=== PATIENT | male | born 2005 | race Caucasian/White ===

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

== ENCOUNTER 2023-04-26 11:20 | Emergency (ER) | payer OTHER, SELFPAY ==
[2023-04-26 11:23] VITALS: BP 108/73; PULSE 80; RESP 15; TEMP 36.6; O2SAT 97; BMI 25.1
--- NOTE | 2023-04-26 11:33 | ED_ITS ---
HPI - Seizure 2 General: Chief Complaint: Seizure Stated Complaint: Seizures Time Seen by Provider: 04/26/23 11:29 History of Present Illness: HPI Narrative: 18-year-old male presents emergency depa rtment via EMS personnel secondary having a seizure-like activity. He states he was taken to stand up after sitting in a chair at approximately 10 AM this morning fell to the ground and then hit his mouth. EMS personnel state that the patient was postictal for approximately 15 minutes after the arrival. Patient does have some dried blood around the corners of his mouth and it does appear that he has bit his tongue. The patient was accompanied by his significant other who witnessed the episode. The patient is now alert and oriented x 4 with a GCS of 15. He states that he has had episodes where he has had seizure-like activity but only with low blood glucose levels. He states he does have a monitor for his blood glucose and has done well monitoring his blood glucose and has not had seizure type activity secondary to hypoglycemia for quite some time. EMS states that their initial blood glucose check was 95 and a repeat was 101. Patient does not take any antiepileptic medications does not see neurology. Patient did complain of some initial nausea for which she received 4 mg of Zofran. He denies dizziness or lightheaded feeling. He denies neck or head pain. Associated symptoms: Reports confusion and syncope Review of Systems 2 General: Reports: 10 or more systems reviewed and unremarkable except in HPI and below Card: Reports: syncope Neuro: Reports: confusion [facility] ED 2 PFSH: Medical History Type 1 diabetes Surgical History No significant past surgical history Social History (Updated 12/11/22 @ 20:01 by Evan Campos MD) Smoking and tobacco/nicotine status: never used tobacco/nicotine Alcohol intake: never Lives independently: Yes Household members: other Details: Fiancee Current occupational status: employed Physical Exam 2 Narrative: EXAM NARRATIVE: Constitutional: the patient appears well nourished and with normal development. Vital signs reviewed as documented. HENMT: Normocephalic, atraumatic. Extermal ears with normal appearance without drainage. Nose without drainage, normal appearance. Mucus membranes moist. Patient's tongue does have superficial bite garcia on the anterior and lateral aspect. Neck is supple, No jugular venous distension, trachea is midline, no appreciable carotid bruits. No lymphadenopathy. No meningeal signs. Flexion, extension and lateral rotation is without pain. There is no vertebral tenderness, palpable step-offs, crepitus or obvious deformity. Eyes: Pupils are equal, round, reactive to light and accommodation. No scleral icterus. Extra-ocular movement are intact. Thorax is symmetrical and with equal rise and fall with respirations. Resp: Lungs are clear to auscultation. No wheezes, rales, crackles or ronchi at present. Cardio: Regular rate and rhythm. Positive S1, S2. No appreciable murmurs, rubs or gallops. GI: Abdominal exam reveals normal bowel sounds to all quadrants. No organomegaly. No obvious palpable masses noted. No hepatomegally appreciated. Soft, nontender to palpation. Extremity: Extremities are non-edematous and both femoral and pedal pulses are 2+ and equal bilaterally. Moves all extremities well, sensation in all extremities. Neuro: Alert and oriented x4, person, place, time and situation. Cranial nerves II through XII are grossly intact, there is no focal neurological deficits that I can appreciate at present. Motor strength in the upper and lower extremities are equal and bilateral 5/5. Psych: Cooperative, calm, normal thought process, appropriate judgment. Skin: No lesions, rashes. No gross abnormalities noted. Back: Symmetrical, no obvious deformity, No CVA tenderness Course 2 Reevaluation(s): Reevaluation #1: Reevaluation of patient after completion of his radiographic examination and review of his labs demonstrates an alert and oriented patient that is aware of his surroundings and has had no additional episodes of altered mental status or seizure type activity I discussed preventative care for his hypoglycemia and syncope. Patient has remained stable GCS of 15 ANO x 4 at this time I will discharge the patient at his request and have him follow-up with his primary care provider or coal bagger for further evaluation and discussion of any endocrine related medication adjustments. Patient is in agreement with this plan Time: 12:39 Vital Signs: Vital signs: Vital Signs Temperature 97.8 F 04/26/23 11:23 Pulse Rate 100 04/26/23 12:40 Respiratory Rate 21 H 04/26/23 12:40 Blood Pressure 136/83 04/26/23 12:40 Pulse Oximetry 98 04/26/23 12:40 Oxygen Delivery Me thod Room Air 04/26/23 12:40 MDM - Seizure MDM Narrative Medical decision making narrative: Physical exam completed and documented, I will obtain POC glucose check and treat accordingly. I will obtain a chest x-ray and if indicated a CT scan of the head without contrast to evaluate for intracranial hemorrhage, tumor or other posttraumatic abnormality. I have reviewed previous and pertinent medical records for assist in obtaining beneficial medical information to improved the care and treatment of the patient. Lab Data 04/26/23 11:50 04/26/23 11:50 Labs: Radiology Impressions Chest X-Ray 04/26/23 11:35 IMPRESSION: No acute findings. Laboratory Results WBC 7.11 10^3/uL (4.5-13.0) 04/26/23 11:50 RBC 5.29 10^6/uL (3.85-5.65) 04/26/23 11:50 Hgb 15.70 g/dL (13.2-15.6) H 04/26/23 11:50 Hct 46.7 % (37-53) 04/26/23 11:50 MCV 88.3 fl (82-101) 04/26/23 11:50 MCH 29.7 pg (27-33) 04/26/23 11:50 MCHC 33.6 g/dL (30-55) 04/26/23 11:50 RDW 12.8 % (12.1-15.1) 04/26/23 11:50 Plt Count 233 10^3/cmm (157-399) 04/26/23 11:50 MPV 9.2 fL (7.4-10.4) 04/26/23 11:50 Neut % (Auto) 79.4 % 04/26/23 11:50 Lymph % (Auto) 12.1 % 04/26/23 11:50 [place] % (Auto) 6.6 % 04/26/23 11:50 Eos % (Auto) 0.7 % 04/26/23 11:50 Baso % (Auto) 0.6 % 04/26/23 11:50 Neut # (Auto) 5.65 10^3/uL (1.8-8.0) 04/26/23 11:50 Lymph # (Auto) 0.9 10^3/uL (1.5-6.5) L 04/26/23 11:50 [place] # (Auto) 0.5 10^3/uL (0.2-0.9) 04/26/23 11:50 Eos # (Auto) 0.1 10^3/uL (0.0-0.8) 04/26/23 11:50 Baso # (Auto) 0.0 10^3/uL (0.0-0.1) 04/26/23 11:50 Nucleated RBC % (auto) 0 % 04/26/23 11:50 Nucleated RBCs # 0.0 /100WBC 04/26/23 11:50 Sodium 139 mmol/L (136-145) 04/26/23 11:50 Potassium 4.2 mmol/L (3.5-5.1) 04/26/23 11:50 Chloride 102 mmol/L (98-107) 04/26/23 11:50 Carbon Dioxide 26 mmol/L (22-29) 04/26/23 11:50 Anion Gap 15.2 (5-19) 04/26/23 11:50 BUN 11 mg/dL (6-20) 04/26/23 11:50 Creatinine 0.9 mg/dL (0.7-1.2) 04/26/23 11:50 GFR Calculation 107.6 mL/min (90-130) 04/26/23 11:50 Glucose 106 mg/dL (65-115) 04/26/23 11:50 POC Glucose 81 mg/dL (70-110) 04/26/23 11:39 Calculated Osmolality 288 mOsm/kg (285-295) 04/26/23 11:50 Calcium 9.5 mg/dL (8.5-10.5) 04/26/23 11:50 Total Bilirubin 0.5 mg/dL (0.15-1.2) 04/26/23 11:50 AST 24 U/L (0-40) 04/26/23 11:50 ALT 18 U/L (0-41) 04/26/23 11:50 Alkaline Phosphatase 70 U/L (40-130) 04/26/23 11:50 Total Protein 7.1 g/dL (6.6-8.7) 04/26/23 11:50 Albumin 4.4 g/dL (3.5-5.2) 04/26/23 11:50 Globulin 2.7 g/dL (1.3-4.6) 04/26/23 11:50 Prolactin 24.25 ng/mL (4.0-15.2) H 04/26/23 11:50 Urine Color Yellow (Yellow) 04/26/23 11:58 Urine Appearance Clear (CLEAR) 04/26/23 11:58 Urine pH 6 (5-7) 04/26/23 11:58 Ur Specific [place] 1.020 (1.005-1.030) 04/26/23 11:58 Urine Protein Neg (Negative) 04/26/23 11:58 Urine Glucose (UA) Norm (Normal) 04/26/23 11:58 Urine Ketones 1+ (Negative) H 04/26/23 11:58 Urine Blood Neg (Negative) 04/26/23 11:58 Urine Nitrate Negative (Negative) 04/26/23 11:58 Urine Bilirubin Neg (Negative) 04/26/23 11:58 Urine Urobilinogen Norm mg/dL (Negative) 04/26/23 11:58 Ur Leukocyte Esterase Negative (Negative) 04/26/23 11:58 All radiology interpretation(s) finalized by discharge Critical Care Time 2 Critical Care Time: Critical Care Time: Yes Total Critical Care Time: 35 Attestation: The patients was emergenctly evaluated as this patient's presentation and case had a high probability of a clinically significant, sudden, or life threatening deterioration of this patient's initial critical presentation or condition which required my full and direct attention, intervention and personal management. Discharge Plan Discharge Patient Disposition: Home Clinical Impression: Syncope and collapse, Controlled type 1 diabetes mellitus with hypoglycemia Contusion of face Qualifiers: Encounter type: initial encounter Qualified Code(s): S00.83XA - Contusion of other part of head, initial encounter Condition: Stable Prescriptions: No Action ondansetron 4 mg tablet,disintegrating 4 mg PO Q8H PRN (Reason: nausea and vomiting) Qty: 15 0RF Humalog KwikPen Insulin 200 unit/mL (3 mL) insulin pen See Rx Instructions .ROUTE .COMPLEX Rx Instructions: as directed with dexcom pump insulin glargine-yfgn [Semglee(insulin glarg-yfgn)Pen] 100 unit/mL (3 mL) insulin pen See Rx Instructions .ROUTE .COMPLEX Rx Instructions: unit subcutaneously as directed albuterol sulfate 90 mcg/actuation HFA aerosol inhaler 2 puff INHALATION Q6H PRN (Reason: Shortness Of Breath Or Wheezing) Discharge Orders: Discharge ED (Routine); Ordered 04/26/23 Ordered By: Pio Mares Discharge Diet: Advance as tolerated Discharge Activity: Resume usual activity Coding Level of Care Code ED Generator Operator for Wilmar Leroy
--- NOTE | 2023-04-26 11:35 | XRR_ITS ---
PROCEDURE INFORMATION: Exam: XR Chest Exam date and time: 04/26/2023 11:43 AM Age: 18 years old Clinical indication: Other: Seizure TECHNIQUE: Imaging protocol: Radiologic exam of the chest. Views: 1 view. COMPARISON: CR XR chest 1V portable [id number] 12/11/2022 7:58 PM FINDINGS: Lungs: Unremarkable. No consolidation. Pleural spaces: Unremarkable. No pleural effusion. No pneumothorax. Heart/Mediastinum: Unremarkable. No cardiomegaly. Bones/joints: Unremarkable. XR/XR chest 1V portable [id number] IMPRESSION: No acute findings.
--- NOTE | 2023-04-26 11:35 | PC.NURSE ---
pt placed on tapper helper.
[2023-04-26 11:43] LABS: Glucose Point of Care 81 mg/dL (70-110)
--- NOTE | 2023-04-26 11:43 | CT_ITS ---
WS: [id number] CT CERVICAL SPINE HISTORY: fall/Seizure TECHNIQUE: Contiguous 2.0 mm axial imaging performed through the entire cervical spine. Sagittal and coronal reformats also performed. All CT scans at [facility] use at least one of these dose o ptimization techniques: automated exposure control; mA and/or kV adjustment per patient size (include s targeted exams where dose is matched to clinical indication); or iterative reconstruction. DLP: 1064.19 mGy.cm COMPARISON: None available. Mild straightening of the normal cervical lordosis. Craniocervical junction is normal. Lateral masses of C1 and C2 are aligned. The odontoid is intact. No cervical spine fracture. Facet joints are sis lly aligned. No disc protrusions. No soft tissue abnormalities. Soft tissues are normal. Lung apices are clear. IMPRESSION: Normal cervical spine.
--- NOTE | 2023-04-26 11:44 | CT_ITS ---
WS: [id number] CT FACIAL BONES HISTORY: faacial trauma/fall TECHNIQUE: Images obtained from the supraorbital location through the mandible. Soft tissue and bone windows are reviewed. Coronal and sagittal reformats have also been submitted. DLP: 1064.[address] scans at [facility] use at least one of these dose optimization techniques: automated e xposure control; mA and/or kV adjustment per patient size (includes targeted exams where dose is matc hed to clinical indication); or iterative reconstruction. COMPARISON: None available. No facial bone fractures identified. Orbits are intact. No nasal bone or zygomatic arch fracture. The re is a small mucous retention cyst in the RIGHT maxillary sinus. No air-fluid levels in the sinuses. The mandible is intact. No overlying soft tissue edema. Visualized upper cervical spine is negative. IMPRESSION: Negative facial bone CT.
--- NOTE | 2023-04-26 11:47 | PC.NURSE ---
glucose currently 81
[2023-04-26 12:07] LABS: Basophils % 0.6 %; Eosinophils # 0.1 10^3/uL (0.0-0.8); Eosinophils % 0.7 %; Hematocrit 46.7 % (37-53); Lymphocytes # 0.9 10^3/uL (1.5-6.5); Lymphocytes % 12.1 %; Mean Corpuscular HGB Conc 33.6 g/dL (30-55); Mean Corpuscular Hemoglobin 29.7 pg (27-33); Mean Corpuscular Volume 88.3 fl (82-101); Mean Platelet Volume 9.2 fL (7.4-10.4); Monocytes # 0.5 10^3/uL (0.2-0.9); Monocytes % 6.6 %; Neutrophils # 5.65 10^3/uL (1.8-8.0); Neutrophils % 79.4 %; Nucleated Red Blood Cells % 0 %; Platelet Count 233 10^3/cmm (157-399); Red Blood Count 5.29 10^6/uL (3.85-5.65); Red Cell Distribution Width 12.8 % (12.1-15.1); White Blood Count 7.11 10^3/uL (4.5-13.0)
[2023-04-26 12:18] VITALS: BP 108/73; PULSE 110; RESP 17; O2SAT 99
--- NOTE | 2023-04-26 12:19 | PC.NURSE ---
this nurse completed triage note and recalled to assessment note.
[2023-04-26 12:25] LABS: Add Urine Microscopic? NO; Charge for UA Resulting for Rev
[2023-04-26 12:31] LABS: Alanine Aminotransferase 18 U/L (0-41); Albumin Level 4.4 g/dL (3.5-5.2); Alkaline Phosphatase 70 U/L (40-130); Anion Gap 15.2 (5-19); Aspartate Amino Transferase 24 U/L (0-40); Blood Urea Nitrogen 11 mg/dL (6-20); Calcium 9.5 mg/dL (8.5-10.5); Carbon Dioxide 26 mmol/L (22-29); Chloride 102 mmol/L (98-107); Creatinine Clr Calc Pharmacy 144.1459; Globulin 2.7 g/dL (1.3-4.6); Glomerular Filtration Rate 107.6 mL/min (90-130); Glucose 106 mg/dL (65-115); Osmolality Calculated 288 mOsm/kg (285-295); Potassium 4.2 mmol/L (3.5-5.1); Sodium 139 mmol/L (136-145); Total Bilirubin 0.5 mg/dL (0.15-1.2); Total Protein 7.1 g/dL (6.6-8.7)
[2023-04-26 12:33] LABS: Bilirubin Urine Neg (Negative); Blood Urine Neg (Negative); Glucose Urine UA Norm (Normal); Ketones Urine 1+ (Negative); Nitrate Urine Negative (Negative); Protein Urine Neg (Negative); Urine Appearance Clear (CLEAR); Urine Color Yellow (Yellow); pH Urine 6 (5-7)
[2023-04-26 12:34] LABS: Leukocyte Esterase Urine Negative (Negative); Urobilinogen Urine Norm (Negative)
[2023-04-26 12:40] VITALS: BP 136/83; PULSE 100; RESP 21; O2SAT 98
[2023-04-26 12:55] LABS: Prolactin 24.25 ng/mL (4.0-15.2)
[2023-04-26 13:01] VITALS: BP 136/83; PULSE 100; RESP 21; TEMP 36.6; O2SAT 98
== END 2023-04-26 13:02 | disposition home or self-care (01) ==
PROVIDERS: Emergency Provider Internal Medicine; PCP Nurse Practitioner Family
DX: R55 Syncope and collapse (principal); E10.649 Type 1 diabetes mellitus with hypoglycemia without coma; S00.83XA Contusion of other part of head, initial encounter; Z79.4 Long term (current) use of insulin; W07.XXXA Fall from chair, initial encounter
CPT/HCPCS: 36415; 36416; 70486; 71045; 72125; 80053; 81003; 82962; 84146; 85025; 99285

== ENCOUNTER 2023-04-29 14:11 | Emergency (ER) | payer OTHER, SELFPAY ==
[2023-04-29 14:15] VITALS: BP 151/81; PULSE 70; O2SAT 100; BMI 24.3
[2023-04-29 14:48] LABS: Basophils % 0.4 %; Eosinophils % 0.2 %; Hematocrit 48.7 % (37-53); Lymphocytes # 0.9 10^3/uL (1.5-6.5); Lymphocytes % 10.1 %; Mean Corpuscular HGB Conc 33.9 g/dL (30-55); Mean Corpuscular Hemoglobin 29.4 pg (27-33); Mean Corpuscular Volume 86.8 fl (82-101); Mean Platelet Volume 9.2 fL (7.4-10.4); Monocytes # 0.5 10^3/uL (0.2-0.9); Neutrophils # 7.01 10^3/uL (1.8-8.0); Neutrophils % 82.9 %; Nucleated Red Blood Cells % 0 %; Platelet Count 238 10^3/cmm (157-399); Red Blood Count 5.61 10^6/uL (3.85-5.65); Red Cell Distribution Width 12.7 % (12.1-15.1); White Blood Count 8.45 10^3/uL (4.5-13.0)
--- NOTE | 2023-04-29 14:50 | W.ED.RECABL ---
HPI - Recheck/Abnormal Lab/Rx General: Chief Complaint: Recheck/Abnormal Lab/Rx Stated Complaint: low glucose Time Seen by Provider: 04/29/23 14:12 Source: patient Mode of arrival: EMS History of Present Illness: 18-year-old male history of diabetes mellitus presents to the emergency room via EMS. He was found at home agitated aggressive disoriented. Evidently was aggressive and other family members were restraining him when EMS arrived. They did get a blood glucose of 40 and he was given D10 which he became pulm and agreeable and cooperative. Patient reports he had malfunction with his Dexcom last night and did not get an alert when he became hypoglycemic. On arrival here he is well-behaved and feeling much better. He was given D10 on the scene. MD complaint: abnormal lab (Hypoglycemia) Treatments prior to arrival: IV/IO (D10) Review of Systems Const: Denies: fever(s) or chills Card: Denies: chest pain Resp: Denies: dyspnea GI: Denies: abdominal pain : Denies: dysuria, urinary frequency or urinary urgency Musc: Denies: neck pain or back pain Skin/Breast: Denies: rash PFS ED PFSH: Medical History Type 1 diabetes Surgical History No significant past surgical history Social History Smoking and tobacco/nicotine status: never used tobacco/nicotine Alcohol intake: never Lives independently: Yes Household members: other Details: Fiancee Current occupational status: employed Physical Exam Const: COMMON NORMALS: no acute distress GENERAL APPEARANCE: cooperative and comfortable ORIENTATION/CONSCIOUSNESS: Yes awake, Yes oriented to person, Yes oriented to place and Yes oriented to time HENMT: COMMON NORMALS: normocephalic, atraumatic and hearing grossly normal bilaterally HEAD & SCALP: normocephalic and atraumatic Resp: COMMON NORMALS: normal respiratory effort, No retractions, No use of accessory muscles and clear to auscultation bilaterally AUSCULTATION: clear to auscultation bilaterally Cardio: COMMON NORMALS: regular rate, regular rhythm and No murmurs present (Cardio) RATE: regular rate RHYTHM: regular rhythm GI: COMMON NORMALS: Soft to palpation and No hepatosplenomegaly present AUSCULTATION: Yes normoactive bowel sounds PALPATION: Yes Soft to palpation, No Tenderness to palpation present (GI), No Guarding due to palpation present (GI) and Yes No hepatosplenomegaly present Extremity: COMMON NORMALS: normal to inspection, capillary refill normal, no clubbing, cyanosis or edema, no calf tenderness and no pedal edema Neuro: SENSORIUM/ORIENTATION: Yes oriented to person, Yes oriented to place and Yes oriented to time Skin: COMMON NORMALS: no rashes or lesions noted GENERAL SKIN EXAM: no rashes or lesions noted Course Vital Signs: Vital signs: Vital Signs Pulse Rate 77 04/29/23 15:47 Blood Pressure 146/90 04/29/23 15:47 Pulse Oximetry 97 04/29/23 15:47 Oxygen Delivery Me thod Room Air 04/29/23 14:15 MDM - Recheck/Abnormal Lab/Rx Medical Decision Making Hypoglycemic and combative resolved after blood sugar was improved. After arriving here he has been alert oriented and behaving appropriately 8 blood sugar maintained appropriately. Will discharge home continue to monitor blood sugar closely. Medical Records I reviewed the patient's medical records. Lab Data I reviewed the patient's lab results. 04/29/23 14:33 04/29/23 14:33 Laboratory Results WBC 8.45 10^3/uL (4.5-13.0) 04/29/23 14:33 RBC 5.61 10^6/uL (3.85-5.65) 04/29/23 14:33 Hgb 16.50 g/dL (13.2-15.6) H 04/29/23 14:33 Hct 48.7 % (37-53) 04/29/23 14:33 MCV 86.8 fl (82-101) 04/29/23 14:33 MCH 29.4 pg (27-33) 04/29/23 14:33 MCHC 33.9 g/dL (30-55) 04/29/23 14:33 RDW 12.7 % (12.1-15.1) 04/29/23 14:33 Plt Count 238 10^3/cmm (157-399) 04/29/23 14:33 MPV 9.2 fL (7.4-10.4) 04/29/23 14:33 Neut % (Auto) 82.9 % 04/29/23 14:33 Lymph % (Auto) 10.1 % 04/29/23 14:33 [place] % (Auto) 6.0 % 04/29/23 14:33 Eos % (Auto) 0.2 % 04/29/23 14:33 Baso % (Auto) 0.4 % 04/29/23 14:33 Neut # (Auto) 7.01 10^3/uL (1.8-8.0) 04/29/23 14:33 Lymph # (Auto) 0.9 10^3/uL (1.5-6.5) L 04/29/23 14:33 [place] # (Auto) 0.5 10^3/uL (0.2-0.9) 04/29/23 14:33 Eos # (Auto) 0.0 10^3/uL (0.0-0.8) 04/29/23 14:33 Baso # (Auto) 0.0 10^3/uL (0.0-0.1) 04/29/23 14:33 Nucleated RBC % (auto) 0 % 04/29/23 14: Nucleated RBCs # 0.0 /100WBC 04/29/23 14:33 Sodium 142 mmol/L (136-145) 04/29/23 14:33 Potassium 4.3 mmol/L (3.5-5.1) 04/29/23 14:33 Chloride 103 mmol/L (98-107) 04/29/23 14:33 Carbon Dioxide 25 mmol/L (22-29) 04/29/23 14:33 Anion Gap 18.3 (5-19) 04/29/23 14:33 BUN 9 mg/dL (6-20) 04/29/23 14:33 Creatinine 0.8 mg/dL (0.7-1.2) 04/29/23 14:33 GFR Calculation 123.2 mL/min (90-130) 04/29/23 14:33 Glucose 126 mg/dL (65-115) H 04/29/23 14:33 POC Glucose 172 mg/dL (70-110) H 04/29/23 15:37 Calculated Osmolality 294 mOsm/kg (285-295) 04/29/23 14:33 Calcium 9.8 mg/dL (8.5-10.5) 04/29/23 14:33 Total Bilirubin 0.7 mg/dL (0.15-1.2) 04/29/23 14:33 AST 24 U/L (0-40) 04/29/23 14:33 ALT 17 U/L (0-41) 04/29/23 14:33 Alkaline Phosphatase 78 U/L (40-130) 04/29/23 14:33 Total Protein 8.0 g/dL (6.6-8.7) 04/29/23 14:33 Albumin 4.7 g/dL (3.5-5.2) 04/29/23 14:33 Globulin 3.3 g/dL (1.3-4.6) 04/29/23 14:33 No radiology studies performed this visit Discharge Plan Discharge Patient Disposition: Home Clinical Impression: Hypoglycemia, Controlled type 1 diabetes mellitus with hypoglycemia Condition: Stable Prescriptions: No Action ondansetron 4 mg tablet,disintegrating 4 mg PO Q8H PRN (Reason: nausea and vomiting) Qty: 15 0RF Humalog KwikPen Insulin 200 unit/mL (3 mL) insulin pen See Rx Instructions .ROUTE .COMPLEX Rx Instructions: as directed with dexcom pump insulin glargine-yfgn [Semglee(insulin glarg-yfgn)Pen] 100 unit/mL (3 mL) insulin pen See Rx Instructions .ROUTE .COMPLEX Rx Instructions: unit subcutaneously as directed albuterol sulfate 90 mcg/actuation HFA aerosol inhaler 2 puff INHALATION Q6H PRN (Reason: Shortness Of Breath Or Wheezing) Discharge Orders: Discharge ED (Routine); Ordered 04/29/23 Ordered By: Sharath Suggs Referrals: Raquel Shay APN [Primary Care Provider] - Discharge Diet: Usual diet Discharge Activity: Increase activity as tolerated Patient Instructions: Opioid Safety, Pain Management Activity Restrictions/Additional Instructions: Thank you for choosing [facility] for your healthcare needs today. Please realize this is an emergency room and that we are providing you with a medical screening exam and this may not be complete and all inclusive of all the testing and or work up that you may need to determine your ailment or severity of your illness. It is very important that you follow up as instructed or that you return to the Emergency Department should you have concerns or if your condition changes or worsens in any way. You are seen today with hypoglycemia. Monitor blood sugars closely follow-up with your primary care doctor to adjust insulin as appropriate. Coding Level of Care Code ED Sewer Maintenance Supervisor for Wilmar Leroy
[2023-04-29 15:00] LABS: Alanine Aminotransferase 17 U/L (0-41); Albumin Level 4.7 g/dL (3.5-5.2); Alkaline Phosphatase 78 U/L (40-130); Anion Gap 18.3 (5-19); Aspartate Amino Transferase 24 U/L (0-40); Blood Urea Nitrogen 9 mg/dL (6-20); Calcium 9.8 mg/dL (8.5-10.5); Carbon Dioxide 25 mmol/L (22-29); Chloride 103 mmol/L (98-107); Globulin 3.3 g/dL (1.3-4.6); Glomerular Filtration Rate 123.2 mL/min (90-130); Glucose 126 mg/dL (65-115); Osmolality Calculated 294 mOsm/kg (285-295); Potassium 4.3 mmol/L (3.5-5.1); Sodium 142 mmol/L (136-145); Total Bilirubin 0.7 mg/dL (0.15-1.2)
[2023-04-29 15:41] LABS: Glucose Point of Care 172 mg/dL (70-110)
[2023-04-29 15:47] VITALS: BP 146/90; PULSE 77; O2SAT 97
== END 2023-04-29 15:48 | disposition home or self-care (01) ==
PROVIDERS: Emergency Provider Family Medicine; PCP Nurse Practitioner Family
DX: E10.649 Type 1 diabetes mellitus with hypoglycemia without coma (principal); Z79.4 Long term (current) use of insulin
CPT/HCPCS: 36415; 36416; 80053; 82962; 85025; 99283

== ENCOUNTER 2023-05-11 18:36 | Inpatient (IN) | payer OTHER, SELFPAY ==
[2023-05-11 18:46] VITALS: BP 136/82; PULSE 93; RESP 18; TEMP 36.6; O2SAT 100
--- NOTE | 2023-05-11 19:47 | ED_ITS ---
HPI - Nausea/Vomiting/Diarrhea 2 General: Chief complaint: Nausea/Vomiting/Diarrhea Stated complaint: vomiting days, uncontrolled bg Time Seen by Provider: 05/11/23 19:35 Source: patient Mode of arrival: ambulatory Limitations: no limitations History of Present Illness: 18-year-old male history of type 1 diabe karla states that last 4 days he has been having severe nausea vomiting states has not been able to tolerate any p.o. States his sugars been running normal he denies any pain anywhere he denies any diarrhea denies any fevers denies any worsening improving factors. Associated nausea: Yes Associated symtoms: Reports nausea; Denies chest pain, dysuria or headache(s) Review of Systems 2 Const: Denies: fever(s), chills, body aches or change in appetite ENMT: Denies: throat pain or dental pain Card: Denies: chest pain Resp: Denies: dyspnea GI: Reports: nausea and vomiting; Denies: abdominal pain or diarrhea : Denies: dysuria Musc: Denies: neck pain or back pain Skin/Breast: Denies: rash Neuro: Denies: headache(s) PFSH ED 2 PFSH: Medical History Type 1 diabetes Surgical History No significant past surgical history Social History Smoking and tobacco/nicotine status: never used tobacco/nicotine Alcohol intake: never Lives independently: Yes Household members: other Details: Fiancee Current occupational status: employed Physical Exam 2 Const: COMMON NORMALS: no acute distress, patient oriented x3 and healthy appearing HENMT: COMMON NORMALS: normocephalic and atraumatic HEAD & SCALP: n ormocephalic and atraumatic Eye: COMMON NORMALS: Equal, round and reactive pupils present and EOMs intact bilaterally PUPIL: Yes Equal, round and reactive pupils present Neck/C-Spine: COMMON NORMALS: full ROM and supple Chest: COMMONS NORMALS: normal inspection of the chest and normal palpation of entire chest wall Resp: COMMON NORMALS: normal respiratory effort, No retractions, No use of accessory muscles and clear to auscultation bilaterally AUSCULTATION: clear to auscultation bilaterally Cardio: COMMON NORMALS: regular rate, regular rhythm and No murmurs present (Cardio) RATE: regular rate RHYTHM: regular rhythm GI: COMMON NORMALS: Normal to inspection, nondistended, normoactive bowel sounds present, Soft to palpation, non-tender and no masses PALPATION: Yes Soft to palpation Extremity: COMMON NORMALS: normal to inspection and full ROM Neuro: COMMON NORMALS: patient oriented x3, moves all extremities and no focal motor deficits Psych: COMMON NORMALS: mental status grossly normal, Normal thought process present and cooperative THOUGHT PROCESS: Normal thought process present Skin: COMMON NORMALS: no rashes or lesions noted and no wounds GENERAL SKIN EXAM: no rashes or lesions noted Course 2 Vital Signs: Vital signs: Vital Signs Temperature 97.9 F 05/11/23 18:46 Pulse Rate 74 05/11/23 20:33 Respiratory Rate 16 05/11/23 20:33 Blood Pressure 130/52 05/11/23 20:33 Pulse Oximetry 100 05/11/23 20:33 Oxygen Delivery Me thod Room Air 05/11/23 18:46 MDM - Nausea/Vomiting/Diarrhea Medical Decision Making Patient presents here with vomiting he is in DKA here patient given IV fluids start insulin drip I spoke to hospitalist will admit. Medical Records I reviewed the patient's medical records. Lab Data I reviewed the patient's lab results. 05/11/23 19:50 05/11/23 19:50 Laboratory Results WBC 15.87 10^3/uL (4.5-13.0) H 05/11/23 19:50 RBC 5.64 10^6/uL (3.85-5.65) 05/11/23 19:50 Hgb 16.50 g/dL (13.2-15.6) H 05/11/23 19:50 Hct 47.6 % (37-53) 05/11/23 19:50 MCV 84.4 fl (82-101) 05/11/23 19:50 MCH 29.3 pg (27-33) 05/11/23 19:50 MCHC 34.7 g/dL (30-55) 05/11/23 19:50 RDW 12.6 % (12.1-15.1) 05/11/23 19:50 Plt Count 338 10^3/cmm (157-399) 05/11/23 19:50 MPV 9.6 fL (7.4-10.4) 05/11/23 19:50 Neut % (Auto) 88.5 % 05/11/23 19:50 Lymph % (Auto) 6.1 % 05/11/23 19:50 [place] % (Auto) 4.3 % 05/11/23 19:50 Eos % (Auto) 0.1 % 05/11/23 19:50 Baso % (Auto) 0.4 % 05/11/23 19:50 Neut # (Auto) 14.06 10^3/uL (1.8-8.0) H 05/11/23 19:50 Lymph # (Auto) 1.0 10^3/uL (1.5-6.5) L 05/11/23 19:50 [place] # (Auto) 0.7 10^3/uL (0.2-0.9) 05/11/23 19:50 Eos # (Auto) 0.0 10^3/uL (0.0-0.8) 05/11/23 19:50 Baso # (Auto) 0.1 10^3/uL (0.0-0.1) 05/11/23 19:50 Nucleated RBC % (auto) 0 % 05/11/23 19:50 Nucleated RBCs # 0.0 /100WBC 05/11/23 19:50 Specimen Type Arterial 05/11/23 20:25 Sample Site Brachial, left 05/11/23 20:25 ABG pH 7.27 (7.35-7.45) L 05/11/23 20:25 ABG pCO2 29.5 mmHg (35-45) L 05/11/23 20:25 ABG pO2 53.9 mmHg (80.0-100.0) L 05/11/23 20:25 ABG PO2/FiO2 Ratio 0 05/11/23 20:25 ABG HCO3 13.4 mmol/L (22-26) L 05/11/23 20:25 ABG Base Excess -12.0 mmol/L (-2.0-2.0) L 05/11/23 20:25 Steven Test Pos 05/11/23 20:25 Hematocrit 48.7 % (42-52) 05/11/23 20:25 O2 Delivery Device None 05/11/23 20:25 FiO2 21.0 % 05/11/23 20:25 Solar Sales Advisor ID [email or web address] 05/11/23 20:25 Sodium 133 mmol/L (136-145) L 05/11/23 19:50 Potassium 5.5 mmol/L (3.5-5.1) H 05/11/23 19:50 Chloride 91 mmol/L (98-107) L 05/11/23 19:50 Carbon Dioxide 14 mmol/L (22-29) L 05/11/23 19:50 Anion Gap 33.5 (5-19) H 05/11/23 19:50 BUN 23 mg/dL (6-20) H 05/11/23 19:50 Creatinine 1.3 mg/dL (0.7-1.2) H 05/11/23 19:50 GFR Calculation 70.4 mL/min (90-130) L 05/11/23 19:50 Glucose 391 mg/dL (65-115) H 05/11/23 19:50 POC Glucose 322 mg/dL (70-110) H 05/11/23 20:05 Calculated Osmolality 296 mOsm/kg (285-295) H 05/11/23 19:50 Calcium 9.6 mg/dL (8.5-10.5) 05/11/23 19:50 Total Bilirubin 1.2 mg/dL (0.15-1.2) 05/11/23 19:50 AST 26 U/L (0-40) 05/11/23 19:50 ALT 36 U/L (0-41) 05/11/23 19:50 Alkaline Phosphatase 98 U/L (40-130) 05/11/23 19:50 Total Protein 8.5 g/dL (6.6-8.7) 05/11/23 19:50 Albumin 5.1 g/dL (3.5-5.2) 05/11/23 19:50 Globulin 3.4 g/dL (1.3-4.6) 05/11/23 19:50 Lipase 27 U/L (13-60) 05/11/23 19:50 All radiology interpretation(s) finalized by discharge Critical Care Time 2 Critical Care Time: Critical Care Time: Yes Total Critical Care Time: 40 Attestation: The high probability of a clinically significant, sudden or life threatening deterioration of the patient's endocrine system(s) required my full and direct attention, intervention and personal management. The critical care time is as shown. This time is in addition to time spent performing any reported procedures but includes the following: [x] Data and vital sign review and interpretation [x] Patient assessment, examination and intervention [x] Documentation [x] Medication orders and management Discharge Plan Discharge Admit Provider: Rashid Moe Condition: Stable Prescriptions: No Action ondansetron 4 mg tablet,disintegrating 4 mg PO Q8H PRN (Reason: nausea and vomiting) Qty: 15 0RF Humalog KwikPen Insulin 200 unit/mL (3 mL) insulin pen See Rx Instructions .ROUTE .COMPLEX Rx Instructions: as directed with dexcom pump insulin glargine-yfgn [Semglee(insulin glarg-yfgn)Pen] 100 unit/mL (3 mL) insulin pen See Rx Instructions .ROUTE .COMPLEX Rx Instructions: unit subcutaneously as directed albuterol sulfate 90 mcg/actuation HFA aerosol inhaler 2 puff INHALATION Q6H PRN (Reason: Shortness Of Breath Or Wheezing) Coding Level of Care Code ED Manager Float for Wilmar Leroy
[2023-05-11 19:56] LABS: Basophils # 0.1 10^3/uL (0.0-0.1); Basophils % 0.4 %; Eosinophils % 0.1 %; Hematocrit 47.6 % (37-53); Lymphocytes % 6.1 %; Mean Corpuscular HGB Conc 34.7 g/dL (30-55); Mean Corpuscular Hemoglobin 29.3 pg (27-33); Mean Corpuscular Volume 84.4 fl (82-101); Mean Platelet Volume 9.6 fL (7.4-10.4); Monocytes # 0.7 10^3/uL (0.2-0.9); Monocytes % 4.3 %; Neutrophils # 14.06 10^3/uL (1.8-8.0); Neutrophils % 88.5 %; Nucleated Red Blood Cells % 0 %; Platelet Count 338 10^3/cmm (157-399); Red Blood Count 5.64 10^6/uL (3.85-5.65); Red Cell Distribution Width 12.6 % (12.1-15.1); White Blood Count 15.87 10^3/uL (4.5-13.0)
[2023-05-11] MEDS: sodium chloride 0.9% 1,000 ML 999 ML IV ×2 (19:57→21:26)
[2023-05-11] MEDS: metoclopramide 5 mg/mL SDV 2 mL 10 MG IVP (19:57)
[2023-05-11] MEDS: diphenhydrAMINE 50 mg/mL SDV 1mL IVP (19:57)
[2023-05-11 20:09] LABS: Glucose Point of Care 322 mg/dL (70-110)
[2023-05-11 20:13] LABS: Alanine Aminotransferase 36 U/L (0-41); Albumin Level 5.1 g/dL (3.5-5.2); Alkaline Phosphatase 98 U/L (40-130); Anion Gap 33.5 (5-19); Aspartate Amino Transferase 26 U/L (0-40); Blood Urea Nitrogen 23 mg/dL (6-20); Calcium 9.6 mg/dL (8.5-10.5); Carbon Dioxide 14 mmol/L (22-29); Chloride 91 mmol/L (98-107); Globulin 3.4 g/dL (1.3-4.6); Glomerular Filtration Rate 70.4 mL/min (90-130); Glucose 391 mg/dL (65-115); Lipase 27 U/L (13-60); Osmolality Calculated 296 mOsm/kg (285-295); Potassium 5.5 mmol/L (3.5-5.1); Sodium 133 mmol/L (136-145); Total Bilirubin 1.2 mg/dL (0.15-1.2); Total Protein 8.5 g/dL (6.6-8.7)
[2023-05-11 20:30] LABS: ABG PCO2 29.5 mmHg (35-45); ABG PH Result 7.27 (7.35-7.45); Arterial Blood Gas Hematocrit 48.7 % (42-52); Blood Gas Allen Test Pos; Blood Gas Sample Site Brachial, left; Blood Gas Sample Type Arterial; HCO3 ABG 13.4 mmol/L (22-26); PO2 ABG 53.9 mmHg (80.0-100.0); PO2 FiO2 Ratio Arterial Blood 0
[2023-05-11 20:33] VITALS: BP 130/52; PULSE 74; RESP 16; O2SAT 100
--- NOTE | 2023-05-11 20:47 | XRR_ITS ---
PROCEDURE INFORMATION: Exam: XR Abdomen Exam date and time: 05/11/2023 8:56 PM Age: 18 years old Clinical indication: Nausea and vomiting; Patient HX: N/v. Elevated bg. History of type 1 diabetes. TECHNIQUE: Imaging protocol: Radiologic exam of the abdomen. Views: Frontal supine view of the abdomen. 1 View. COMPARISON: CR (CHEST, ) 05/11/2023 8:56 PM FINDINGS: Gastrointestinal tract: Nonobstructive gas. Average volume colonic. Mild gastric wall thickening may be present. Limited evaluation for free air on this supine study. Bones/joints: Unremarkable. XR/XR KUB portable [id number] IMPRESSION: Suggestion of mild gastric wall thickening, please correlate for any evidence of gastritis. Nonobstructive bowel gas pattern.
--- NOTE | 2023-05-11 20:47 | XRR_ITS ---
PROCEDURE INFORMATION: Exam: XR Chest Exam date and time: 05/11/2023 8:56 PM Age: 18 years old Clinical indication: Shortness of breath; Patient HX: C/O SOB TECHNIQUE: Imaging protocol: Radiologic exam of the chest. Views: 1 view. COMPARISON: CR XR chest 1V portable [id number] 04/26/2023 11:43 AM FINDINGS: Lungs: Unremarkable. No consolidation. Pleural spaces: Unremarkable. No pleural effusion. No pneumothorax. Heart/Mediastinum: Unremarkable. No cardiomegaly. Bones/joints: Unremarkable. XR/XR chest 1V portable [id number] IMPRESSION: No acute plain radiographic abnormality.
[2023-05-11 21:14] LABS: Alcohol Level < 10 mg/dL (0-10)
[2023-05-11 21:18] LABS: Procalcitonin 0.34 ng/mL (0-0.5)
[2023-05-11] MEDS: insulin regular-human 250 UNIT in sodium chloride 0.9% 250 ML 7.58 UNIT IV (21:29)
--- NOTE | 2023-05-11 22:06 | P.HP_ITS ---
Providers/Chief Complaint 2 Admitting Physician: Rashid Moe MD Primary Care Provider: Raquel Shay APN Chief Complaint: vomiting days, uncontrolled bg History of Present Illness Sourav Hsu is a 18 year old male with a past medical history of type 1 diabetes mellitus, managed by endocrinology in [place], was on a insulin pump which had to be discontinued due to hypoglycemia events currently on subcu insulin, presents [facility] due to a 4-day history of nausea vomiting, fluctuating blood sugars. Patient tells me that 4 days ago he started to develop nausea vomiting, inability to keep down solids or liquids, no diarrhea, no constipation, diffuse abdominal pain with a lot of severe gastritis, epigastric burning, for which he uses Protonix at home, he does admit to marijuana use, denies a history of marijuana hyperemesis syndrome, no fevers, no chills, no cough, no lightheadedness, no dizziness, found to have diabetic ketoacidosis in the emergency room, currently on insulin drip, blood pressure 130/52 pulse is 74 respiratory 16 temperature 97.9 O2 sat 100% on room air, bicarb 14 anion gap 33.5, blood sugar 39 1, potassium 5.5 Review of Systems 2 GI: Reports: abdominal pain, nausea and vomiting Medications/Allergies Home Medications Medication Instructions Recorded Confirmed Last Taken Type ondansetron 4 mg disintegrating 4 mg PO Q8H PRN nausea and 12/02/21 04/29/23 Unknown Rx tablet vomiting #15 tabs albuterol sulfate 90 mcg/actuation 2 puff inhalation Q6H PRN 12/12/22 04/29/23 Unknown History aerosol inhaler Shortness Of Breath Or Wheezing insulin glargine-yfgn 100 unit/mL See Rx Instructions .Route .COMPLEX 12/12/22 04/29/23 04/29/23 History (3 mL) subcutaneous pen (Semglee (insulin glargine-yfgn) Pen) insulin lispro 200 unit/mL (3 mL) See Rx Instructions .Route .COMPLEX 12/12/22 04/29/23 04/29/23 History subcutaneous pen (Humalog KwikPen U-200 Insulin) Allergies Allergy/AdvReac Type Severity Reaction Status Date / Time codeine Allergy Intermediate ADR-Nausea Verified 04/29/23 14:25 PFSH Acute 2 PFSH: Medical History Type 1 diabetes Surgical History No significant past surgical history Family History (Updated 05/11/23 @ 22:08 by Rashid Moe MD) Other Depression Social History Smoking and tobacco/nicotine status: never used tobacco/nicotine Alcohol intake: never Lives independently: Yes Household members: other Details: Fiancee Current occupational status: employed Vitals/I&O/Wt Last Vital Signs Temp 97.9 F 05/11/23 18:46 Pulse 74 05/11/23 20:33 Resp 16 05/11/23 20:33 BP 130/52 05/11/23 20:33 Pulse Ox 100 05/11/23 20:33 O2 Del Method Room Air 05/11/23 18:46 05/11/23 05/11/23 05/11/23 06:59 14:59 22:59 Intake Total 1000 / 1000 Balance 1000 / 1000 Weight last 48 hrs Weight 77.111 kg Physical Exam 2 Const: COMMON NORMALS: no acute distress and patient oriented x3 HENMT: COMMON NORMALS: normocephalic HEAD & SCALP: normocephalic Neck/C-Spine: COMMON NORMALS: no JVD Resp: COMMON NORMALS: normal respiratory effort, No retractions, No use of accessory muscles and clear to auscultation bilaterally AUSCULTATION: clear to auscultation bilaterally Cardio: COMMON NORMALS: no JVD, regular rate, regular rhythm, S1 normal heart sound present and S2 normal heart sound present RATE: regular rate RHYTHM: regular rhythm HEART SOUNDS: S1 normal heart sound present and S2 normal heart sound present GI: COMMON NORMALS: Normal to inspection, nondistended, normoactive bowel sounds present, Soft to palpation and non-tender PALPATION: Yes Soft to palpation Extremity: COMMON NORMALS: no calf tenderness and no pedal edema Neuro: COMMON NORMALS: patient oriented x3, CN's II-XII intact bilaterally and moves all extremities Psych: COMMON NORMALS: mental status grossly normal Data 05/11/23 19:50 05/11/23 19:50 A&P Assessment and plan (1) Diabetic ketoacidosis: (2) Intractable nausea and vomiting: (3) Cannabis hyperemesis syndrome 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 -Lovenox for DVT prophylaxis Intractable nausea, vomiting -Likely marijuana hyperemesis syndrome -Continues to have multiple episodes of nausea vomiting in the ER despite receiving Zofran and Reglan -Continue Zofran, Reglan added on promethazine Epigastric discomfort, severe gastritis, GI cocktail Attestations 2 Medical Necessity Statement*: Patient requires hospitalization, inpatient, greater than 2 midnights, for diabetic ketoacidosis, intractable nausea and vomiting, marijuana hyperemesis syndrome Coding Level of Care Code Critical Care >/= 30 minutes Critical care time (in minutes): 45 The high probability of a clinically significant, sudden or life threatening deterioration, as referenced in this documentation, required my full and direct attention, intervention and personal management. The critical care time shown is in addition to time spent performing any reported separately billable procedures and includes the following: [x] Data and vital sign review and interpretation [x ] Patient assessment, examination and intervention [x] Medication orders and management [x] Patient/Family updates as able [x] Care Coordination and Documentation. Diagnoses Diabetic ketoacidosis E11.10 Intractable nausea and vomiting R11.2 Cannabis hyperemesis syndrome concurrent with and due to cannabis abuse F12.188
[2023-05-11 22:15] LABS: Glucose Point of Care 384 mg/dL (70-110)
[2023-05-11 23:04] LABS: Glucose Point of Care 268 mg/dL (70-110)
--- NOTE | 2023-05-11 23:13 | PC.NURSE ---
MD notified of BG decrease of over 100. MD notified that insulin drip protocol is to increase drip from 7.5 u/hr to 7.75 u/hr. telephone order to keep insulin drip at the current rate of 7.5 u/hr.
[2023-05-11 23:17] LABS: Add Urine Microscopic? NO; Charge for UA Resulting for Rev
[2023-05-11 23:20] LABS: Bilirubin Urine Neg (Negative); Blood Urine Neg (Negative); Glucose Urine UA 4+ (Normal); Ketones Urine 3+ (Negative); Leukocyte Esterase Urine Negative (Negative); Nitrate Urine Negative (Negative); Protein Urine Neg (Negative); Urine Appearance Clear (CLEAR); Urine Color Yellow (Yellow); Urobilinogen Urine Norm (Negative); pH Urine 5 (5-7)
[2023-05-11 23:24] VITALS: BP 134/58; PULSE 92; RESP 16; O2SAT 97
[2023-05-11 23:29] LABS: Amphetamines Screen Urine Negative (Negative); Barbiturates Screen Urine Negative (Negative); Benzodiazepines Screen Urine Negative (Negative); Cocaine Screen Urine Negative (Negative); Opiate Screen Urine Negative (Negative); PCP Screen Urine Negative (Negative); THC Screen Urine Positive (Negative)
[2023-05-11 23:43] LABS: Estmated Average Glucose 157; Hemoglobin A1C 7.1 % (4.0-6.0)
[2023-05-11 23:47] LABS: Reflex Lactate Order REFLEX LACTIC ORDERD
[2023-05-11] MEDS: lidocaine 2% viscous 15 ML, aluminum-mag hydrox-simethicon 30 ML, sucralfate oral liq 1 GM PO (23:49)
[2023-05-11] MEDS: pantoprazole 40 mg SDV IVP (23:50)
[2023-05-11] MEDS: sodium chloride 0.9% 1,000 ML 125 ML IV (23:50)
[2023-05-11 23:51] VITALS: O2SAT 100
[2023-05-11 23:51] LABS: Chol HDL Ratio 2.71 mg/dL (1.0-5.00); Cholesterol 114 mg/dL (0-200); HDL Cholesterol 42 mg/dL (60-100); LDL Cholesterol Calculated 54 mg/dL (50-129); LDL HDL Ratio 1.29 RATIO (0.00-3.22); Thyroid Stimulating Hormone 0.43 uIU/mL (0.27-4.20); Triglycerides 89 mg/dL (0-150)
[2023-05-12] VITALS (37 sets, daily range): BP systolic 117–148; BP diastolic 57–95; PULSE 63–133; RESP 12–24; TEMP 36.8–37.1; O2SAT 96–100; BMI 24.7
[2023-05-12 00:04] LABS: Glucose Point of Care 249 mg/dL (70-110)
[2023-05-12 00:59] LABS: Anion Gap 24.7 (5-19); Blood Urea Nitrogen 22 mg/dL (6-20); Calcium 8.6 mg/dL (8.5-10.5); Carbon Dioxide 14 mmol/L (22-29); Chloride 99 mmol/L (98-107); Glomerular Filtration Rate 77.2 mL/min (90-130); Glucose 238 mg/dL (65-115); Magnesium 2.2 mg/dL (1.7-2.3); Osmolality Calculated 287 mOsm/kg (285-295); Phosphorus 2.3 mg/dL (2.5-4.5); Potassium 4.7 mmol/L (3.5-5.1); Sodium 133 mmol/L (136-145)
[2023-05-12 01:04] LABS: Glucose Point of Care 192 mg/dL (70-110)
[2023-05-12] MEDS: D5-NS 0.45% + KCL 20 mEq 20 MEQ/1,000 ML BAG 100 MEQ IV ×3 (02:31→23:18)
[2023-05-12 02:38] LABS: Glucose Point of Care 185 mg/dL (70-110)
[2023-05-12 03:04] LABS: Lactic Acid level (Lactate) 1.1 mmol/L (0.5-2.2)
[2023-05-12 03:09] LABS: Glucose Point of Care 206 mg/dL (70-110)
[2023-05-12 04:40] LABS: Glucose Point of Care 233 mg/dL (70-110)
[2023-05-12 04:57] LABS: Anion Gap 24.1 (5-19); Blood Urea Nitrogen 19 mg/dL (6-20); Calcium 8.3 mg/dL (8.5-10.5); Carbon Dioxide 13 mmol/L (22-29); Chloride 100 mmol/L (98-107); Glomerular Filtration Rate 77.2 mL/min (90-130); Glucose 269 mg/dL (65-115); Magnesium 2.1 mg/dL (1.7-2.3); Osmolality Calculated 286 mOsm/kg (285-295); Phosphorus 2.8 mg/dL (2.5-4.5); Potassium 5.1 mmol/L (3.5-5.1); Sodium 132 mmol/L (136-145)
[2023-05-12 05:23] LABS: Glucose Point of Care 235 mg/dL (70-110)
[2023-05-12 06:30] LABS: Glucose Point of Care 215 mg/dL (70-110)
--- NOTE | 2023-05-12 06:57 | PC.NURSE ---
Report rec'd from MAURICIO Larose
[2023-05-12 07:24] LABS: Glucose Point of Care 231 mg/dL (70-110)
[2023-05-12 08:28] LABS: Glucose Point of Care 206 mg/dL (70-110)
[2023-05-12 09:18] LABS: Anion Gap 20.3 (5-19); Blood Urea Nitrogen 17 mg/dL (6-20); Calcium 8.2 mg/dL (8.5-10.5); Carbon Dioxide 17 mmol/L (22-29); Chloride 102 mmol/L (98-107); Glomerular Filtration Rate 77.2 mL/min (90-130); Glucose 235 mg/dL (65-115); Magnesium 2.2 mg/dL (1.7-2.3); Osmolality Calculated 289 mOsm/kg (285-295); Phosphorus 2.1 mg/dL (2.5-4.5); Potassium 4.3 mmol/L (3.5-5.1); Sodium 135 mmol/L (136-145)
[2023-05-12 09:25] LABS: Glucose Point of Care 204 mg/dL (70-110)
--- OUTSIDE RECORDS SUMMARY | 2023-05-12 09:35 | XMS_ITS | Patient Health Record ---
Author Name Unknown Organization [facility] Address [address] [place] [address] Care Team Providers Care Scientific Diver Name Role Phone Roshni Francisco Primary Care Provider ROSHNI FRANCISCO Unavailable Unavailable Raquel Shay Unavailable [phone] Abby Falcon Unavailable [phone] ALLERGIES Allergen (clinical drug ingredient) Drug/Non Drug Allergy documented on EMR Reaction Allergy Type Onset Date Status codeine Codeine Sulfate Unknown Drug Allergy A ctive RESULTS Component Value Reference Range Notes Hemoglobin A1C Reviewed date:03/29/2023 11:19:40 AM Interpretation: Performing Lab: Notes/Report: Hemoglobin A1C 7.0 4.2 - 6.3 % Mean Blood Sugar (Estimated) Strep Screen A [id number] Reviewed date:06/25/2022 02:43:07 PM Interpretation: Performing Lab: Notes/Report: X Strep Screen A positive Rapid Strep (Strep A) Reviewed date:10/02/2022 04:45:27 PM Interpretation: Performing Lab: Notes/Report: Strep positive RSV PCR--[id number] Reviewed date:01/16/2023 07:42:10 AM Interpretation: Performing Lab: Notes/Report: RSV PCR negative REASON FOR REFERRAL Reason Depression, anxiety Diagnosis 1 Anxiety (F41.9) Diagnosis 2 Depression (F32.9) Referral Organization [facility] Referring Provider First Name Roshni Referring Provider Last Name Maryam Referring Provider Speciality Nurse Prac titioner Referred Provider Specialty Counselor General Notes Miranda Simmons 04/13 /2023 04:00:22 PM >faxed to Danya Andrews per patient Iris frank Amy 11/21/2022 03:56:51 PM >Patient did not keep appt Referral Priority Routine Reason DM Diagnosis 1 Type 1 diabetes natasha itus with hypoglycemia without coma (E10.649) Referral Organization [facility] Referring Provider First Name Roshni Referring Provider Last Name [facility] Referring Provider Speciality Nurse Prac aguilar Referred Provider Jose Gerard Referred Provider Specialty Endocrinolog y, Diabetes and Metabolism General Notes Miranda Simmons 05/02 03:56:45 PM >faxed Referral Priority Routine Reason Seizures Diagnosis 1 Seizures (R56.9) Referral Organization [facility] Referring Provider First Name Roshni [facility] Referring Provider Speciality Nurse Oksana sheikh [facility]erred [facility] Specialty Neurology General Notes Miranda Simmons 05/02 04:09:37 PM >faxedHans Shyla 05/08/2023 04:18:04 PM >Appt 05/20/2023 @ 1:30 Referral Priority Routine Referral Appointment Date 05/20/2023 MEDICATIONS Medication SIG (Take, Route, Frequency, Duration) Notes Start Date End Date Status Pantoprazole Sodium 40 MG 1 tablet Orally Once a day for 30 days 05/08/2023 Active Ondansetron 8 MG DISSOLVE ONE TABLET in MOUTH EVERY 6 HOURS NEEDED Active Lancets - as directed SQ Daily for 90 days 07/20/2022 Active Guardian Link 3 Transmitter Not-Taking HumaLOG KwikPen 200 UNIT/ML Inject up to 75 units Subcutaneous Daily per Omnipod for 30 days 12/17/2022 Not-Taking Fluticasone Propionate 50 MCG/ACT instill ONE SPRAY IN EACH NOSTRIL ONCE DAILY (60 DAY supply) for 21 Active Contour Next Test - as directed In Vitro As needed Not-Taking Ketone Test - as directed In Vitro ad needed for 365 days 12/17/2022 12/15/2028 Active Contour Next Test - as directed In Vitro Daily for 90 days 04/11/2022 Not-Taking Citalopram Hydrobromide 40 MG 1 tablet Orally Once a day for 30 day(s) 05/09/2022 Not-Taking Dexcom G6 Transmitter - as directed Use with Dexcom G6 sensor Change every 90 days for 90 days 07/17/2022 Active Albuterol Sulfate HFA 108 (90 Base) MCG/ACT INHALE 2 PUFFS INTO LUNGS FOUR TIMES DAILY NEEDED for 25 Active Accu-Chek Guide - as directed In Vitro Three times daily for 30 days 12/17/2022 Not-Taking Dexcom G6 Sensor - as directed SQ Jc e every 10 days for 90 days 07/17/2022 Active busPIRone HCl 10 MG 1/2 to1 tablet Orall y Twice a day as needed for 30 days Not-Taking ZyrTEC 10 MG 1 tablet Orally Once a day Not-Taking HumaLOG 100 UNIT/ML as directed Injectio n sliding scale at meal times Active Lantus SoloStar 100 UNIT/ML Inject 30 Units Subcutaneous Once daily for 30 days 05/02/2023 Active Insulin Pump Accessories Medtronic Not-Taking Montelukast Sodium 10 MG 1 tablet Orally Once a day Not-Taking SOCIAL HISTORY Tobacco Use: Social History Observation Description Date Details (start date - stop date) Unknown Sex Assigned At : Social History Observation Description Sex Assigned At Unknown Tobacco Use/Smoking Question Answer Notes Are you a Uses tobacco in other forms Additional Findings: Tobacco User e-Cigarette Alcohol Screen (Audit-C) Question Answer Notes Did you have a drink containing alcohol in the p ast year? No Points 0 Interpretation Negative Tobacco use other than smoking: Question Answer Notes Are you an other tobacco user? Yes PHQ-9 Question Answer Notes Little interest or pleasure in doing things Not at all Feeling down, depressed, or hopeless Not at all Trouble falling or staying asleep, or sleeping t oo much Several days Feeling tired or having little energy Not at all Poor appetite or overeating Not at all Feeling bad about yourself, or that you are a failure, or have let yourself or your family down Not at all Trouble concentrating on thi ngs, such as reading the newspaper or watching television Not at all Moving or speaking so slowly that other people could have noticed. Or the opposite ? being so fidgety or restless that you have been moving around a lot more than usual Not at all Thoughts that you would be b louise off , or of hurting yourself in some way Not at all Total Score 1 Interpretation Minimal Depression PROBLEMS Problem Type ICD Code Onset Dates Problem Status W/U Status Risk SNOMED Code Notes Problem Type 1 diabetes mellitus with hyperglycemia (E10.65) Active confirmed 389371881255761 Problem Type 1 diabetes mellitus with other specified complication (E10.69) Active confirmed 45512974 Problem Anxiety (F41.9) Active confirmed 241206 02 Problem GERD without esophagitis (K21.9) Active confirmed 742303852 Problem Insulin pump in place (Z96.41) Active confirmed 301714925 Problem Depression (F32.9) Active confirmed Depression (63033109) Problem Asthma exacerbation (J45.901) Active confirmed Exacerbation of asthma (917296353) Problem Hypoglycemia associated with diabetes (E11.649) Active confirmed 912045082 Problem Insulin long-term use (Z79.4) Active confirmed 565271114 Problem Insulin pump titration (Z46.81) Active confirmed 469842924 Problem Insulin pump fitting or adjustment (Z46.81) Active confirmed 131744008 Problem Insulin pump status (Z96.41) Active confirmed 175970223 Problem Diabetic hypoglycemia (E11.649) Active confirmed 412002041 VITAL SIGNS Heart Rate 122 /min 05/08/2023 Temperature 97.8 degrees Fahrenheit 05/08/2023 Respiratory Rate 20 /min 05/08/2023 Blood pressure diastolic 74 mm Hg 05/08/2023 Oximetry 99 % 05/08/2023 Height-cm 177.8 cm 05/08/2023 Weight-kg 77.11 kg 05/08/2023 Height 70 in 05/08/2023 BMI Percentile 65.82 % 05/08/2023 Blood pressure systolic 120 mm Hg 05/08/2023 Weight 170 lbs 05/08/2023 BMI 24.39 kg/m2 05/08/2023 Encounters Encounter Location Date Provider Diagnosis [facility] [address] [place] [address] 07/17/2022 Abby Falcon [facility] [address] [place] [address] 07/18/2022 Abby Falcon Type 1 diabetes mellitus with hyperglycemia E10.65 [facility] [address] [place] [address] 08/02/2022 Abby Falcon Type 1 diabetes mellitus with hyperglycemia E10.65 [facility] [address] [place] [address] 12/17/2022 [facility] [address] [place] [address] 12/19/2022 [facility] [address] [place] [address] 01/17/2023 [facility] [address] [place] [address] 03/13/2023 Abby [facility] [address] [place] [address] 04/01/2023 [facility] [address] [place] [address] 04/29/2023 Abby [facility] [address] [place] [address] 04/05/2023 Abby Falcon Type 1 diabetes mellitus with hyperglycemia E10.65 [facility] [address] [place] [address] 04/29/2023 Roshni [facility] [address] [place] [address] 05/01/2023 Roshni Francisco Type 1 diabetes mellitus with hypoglycemia without coma E10.649 ; GERD without esophagitis K21.9 ; Nausea R11.0 ; Seizures R56.9 ; Insulin long-term use Z79.[address] Z96.41 [facility] [address] [place] [address] 01/17/2023 Abby Falcon Type 1 diabetes mellitus with hyperglycemia E10.65 ; Insulin pump fitting or adjustment Z46.81 ; Insulin long-term use Z79.4 ; Insulin pump in place Z96.41 and Uses self-applied continuous glucose monitoring device Z97.8 [facility] [address] [place] [address] 10/10/2022 Abby Falcon [facility] [address] [facility] [address] [place] [address] 11/05/2022 [facility] [address] [facility] [address] [place] [address] 05/17/2022 [facility] [address] [place] [address] 07/13/2022 Abby [facility] [address] [place] [address] 07/17/2022 Abby Falcon Type 1 diabetes mellitus with hyperglycemia E10.65 ; Insulin pump in place Z96.41 ; Insulin pump titration Z46.81 and Uses self-applied continuous glucose monitoring device Z97.8 [address] [place] [address] 12/17/2022 Abby Falcon Type 1 diabetes mellitus with hyperglycemia E10.65 ; Insulin pump fitting or adjustment Z46.81 ; MCFP (current) use of insulin Z79.4 ; Insulin pump in place Z96.41 and Uses self-applied continuous glucose monitoring device Z97.8 [facility] [address] [place] [address] 08/29/2022 [facility] [address] [place] [address] 05/01/2023 Abby Falcon Type 1 diabetes mellitus with other specified complication E10.69 ; Type 1 diabetes mellitus with hypoglycemia without coma E10.649 ; Insulin long-term use Z79.4 ; Insulin pump in place Z96.41 and Uses self-applied continuous glucose monitoring device Z97.8 [address] [place] [address] 03/20/2023 Abby Falcon Type 1 diabetes mellitus with hyperglycemia E10.65 ; Type 1 diabetes mellitus with hypoglycemia without coma E10.649 ; Insulin long-term use Z79.4 ; Insulin pump in place Z96.41 and Uses self-applied continuous glucose monitoring device Z97.8 [facility] [address] [place] [address] 01/15/2023 Roshni Francisco Asthma exacerbation J45.901 [facility] [address] [place] [address] 10/02/2022 Raquel Shay Sore throat J02.9 ; Strep pharyngitis J02.0 ; Skin pustule L08.9 ; Type 1 diabetes mellitus with hyperglycemia E10.65 ; Insulin long-term use Z79.4 and Insulin pump in place Z96.41 [facility] [address] [place] [address] 08/23/2022 Roshni Francisco Asthma exacerbation J45.901 [facility] [address] [place] [address] 07/31/2022 Roshnirob Francisco Anxiety F41.9 and Depression F32.9 [facility] [address] [place] [address] 06/25/2022 Roshni Francisco Strep pharyngitis J02.0 and Nausea R11.0 [facility] [address] [place] [address] 07/02/2022 Roshni Francisco Strep pharyngitis J02.0 [facility] [address] [place] [address] 07/11/2022 Roshnirob Francisco Type 1 diabetes mellitus with hyperglycemia E10.65 ; Anxiety F41.9 and Insulin long-term use Z79.4 [facility] [address] [place] [address] 05/08/2023 Roshniamanda Francisco GERD without esophagitis K21.9 ; Hyperglycemia due to type 1 diabetes mellitus E10.65 and Insulin long-term use Z79.4 [facility] [address] [place] [address] 08/14/2022 Abby Falcon Type 1 diabetes mellitus with hyperglycemia E10.65 ; Insulin pump in place Z96.41 ; Insulin pump fitting or adjustment Z46.81 and Uses self-applied continuous glucose monitoring device Z97.8 [facility] [address] [place] [address] 03/06/2023 Abby Falcon [facility] [address] [place] [address] 04/03/2023 Abby Falcon ASSESSMENTS Encounter Date Diagnosis Assessment Notes Treatment Notes Treatment Clinical Notes 06/25/2022 Nausea (ICD-10 - R11.0) 06/25/2022 Strep pharyngitis (ICD-10 - J02.0) Increase fluids, take medication as directed. RTC if no improvement with treatment. 07/02/2022 Strep pharyngitis (ICD-10 - J02.0) Will change antibiotic to Zithromax. RTC with any concerns. 07/17/2022 Type 1 diabetes mellitus with hyperglycemia (ICD-10 - E10.65) The patient is using a Medtronic 670G insulin pump and a regular Contour glucometer, he also has a Guardian continuous glucose monitor but has not been using this because it does not stick to his skin very well and it is hard to put on. Discussed adhesive techniques including changing soap, using alcohol and SkinTac and allowing skin to dry as well as using the over patches provided. Patient verbalized understanding and will resume use of his Guardian cgm as soon as possible. He is using Humalog insulin since starting the pump, he does have some Lantus as well for back up. The data from the pump is reviewed and hyperglycemia is noted. Adjustments are now made to the Total Daily Basal: MN-0900=0.9 Units, 0615-8491=1.2 Units, 2200-MN=1.0 and Total is 25.7 Units. Bolus: Correction 1:35 mg/dL, Carbohydrates 1:7 grams, Target BG 150 mg/dL. Patient has not been using the bolus function as much as the basal, and he did not use his sick day protocol when his blood sugar was elevated. Encouraged patient to use bolus function with each meal and two hours after the meal when his post prandial blood glucose is over 120 mg/dL. Reviewed pump back up plan, sick day management, and use of ketone testing and external insulin injections if blood glucose remains over 300 mg/dL for more than 2 hours to avoid DKA. Patient and father would like to check on cost of Dexcom G6 and the Omnipod5, referrals are sent to [facility]. He agrees to follow up with his primary care clinic as instructed, and he will follow up here at [facility] in one month for any adjustments or PRN. All questions answered and concerns addressed. Total time spent with patient is 45 minutes 07/17/[address] (ICD-10 - Z96.41) 07/18/2022 Type 1 diabetes mellitus with hyperglycemia (ICD-10 - E10.65) 07/31/2022 Anxiety (ICD-10 - F41.9) 07/31/2022 Depression (ICD-10 - F32.9) 08/02/2022 Type 1 diabetes mellitus with hyperglycemia (ICD-10 - E10.65) 08/14/2022 Type 1 diabetes mellitus with hyperglycemia (ICD-10 - E10.65) The patient is started on use of the Omnipod5 insulin pump with the Dexcom G6 continuous glucose monitor. Instructions on use of the PDM and Omnipod phone radha as well as how to fill and place the Pod and take bolus doses. The PDM is set with the following settings: Total Daily Basal: MN-0900=0.9 Units, 7365-0982=1.2 Units, 2200-MN=1.0 and Total is 25.7 Units. Bolus: Correction 1:35 g/dL, Carbohydrates 1:7 grams, Target BG 110 mg/dL. Encouraged patient to use bolus function with each meal and two hours after the meal when post prandial blood glucose is over 120 mg/dL. Discussed Pod placement, Temp Basal, Extended Bolus, and control integration with Dexcom cgm. He agrees to follow up with his primary care clinic as instructed, and he will follow up here at [facility] in one month for any adjustments or PRN. All questions answered and concerns addressed. Total time spent with patient is 90 minutes 08/14/[address] (ICD-10 - Z96.41) 08/23/2022 Asthma exacerbation (ICD-10 - J45.901) RTC if no improvement with treatment. 10/02/2022 Sore throat (ICD-10 - J02.9) rapid strep positive 10/02/2022 Strep pharyngitis (ICD-10 - J02.0) rocephin 1 gram amoxicillin medrol dose pack 12/17/2022 Type 1 diabetes mellitus with hyperglycemia (ICD-10 - E10.65) The patient is using an Omnipod5 insulin pump and Dexcom G6 continuous glucose monitor. He is using Humalog U200 insulin in the pump. The data from the cgm is downloaded and interpreted, hyperglycemia is noted. He reports that he has not been able to order a new Transmitter and has not been using the Dexcom for about a month. This has caused the pump to not deliver full basal insulin on a regular basis. Advised patient to leave pump in Manual mode until the Dexcom G6 transmitter arrives and is able to be used, then he may set pump back to Automated mode. Patient called [facility], and he will have a Dexcom Transmitter shipped on 12/22/2022. Adjustments are now made to the Total Daily Basal: MN-0900=1.1 Units, 2082-0248=1.4 Units, 2200-MN=1.2 and Total is 31.15 Units. Bolus: Correction 1:30 mg/dL, Carbohydrates 1:8 grams, Target BG 120 mg/dL. Encouraged patient to use bolus function with each meal and two hours after the meal when the post prandial blood glucose is over 110 mg/dL. Patient will need new prescription for Humalog U200, this is sent to his pharmacy. He agrees to follow up with his primary care clinic as instructed, and he will follow up here at [facility] in one month for any adjustments or PRN. All questions answered and concerns addressed. Total time spent with patient is 45 minutes 12/17/2022 Insulin pump fitting or adjustment (ICD-10 - Z46.81) 01/17/2023 Type 1 diabetes mellitus with hyperglycemia (ICD-10 - E10.65) The patient is using an Omnipod5 insulin pump and Dexcom G6 continuous glucose monitor. He is using Humalog U200 insulin in the pump. The data from the pump and cgm is downloaded and interpreted, hyperglycemia is noted with average blood sugar of 175 mg/dL. There are gaps in the use of the pump and three of the past seven days the patient has not used his bolus function. Discussed with patient the importance of using the insulin pump every day consistently and the use of the bolus functions at least once per day. Goals established are no more than two hours with pump off and at least one bolus per day. Patient and significant other verbalized understanding. Adjustments are now made to the Total Daily Basal: MN-0600=1.2 Units, 0900-Noon=1.6 Units, Noon-MN=1.35 and Total is 34.3 Units. Encouraged patient to use bolus function with each meal and two hours after the meal when the post prandial blood glucose is over 180 mg/dL. Discussed insulin use in Pod, patient is filling the Pod to max 200 units and then wasting at least 50 units every 3 days. Explained that he does not need to fill the Pod to maximum and to try 150Units instead of 200 units. Patient verbalized understanding. He and his significant other would like to attend diabetes education class, this is scheduled for next month. He agrees to follow up with his primary care clinic as instructed, and he will follow up here at [facility] in one month for any adjustments or PRN. All questions answered and concerns addressed. Total time spent with patient is 45 minutes 01/17/2023 Insulin pump fitting or adjustment (ICD-10 - Z46.81) 05/01/2023 Type 1 diabetes mellitus with hypoglycemia without coma (ICD-10 - E10.649) Recheck in 3 months. 05/01/2023 GERD without esophagitis (ICD-10 - K21.9) 05/08/2023 GERD without esophagitis (ICD-10 - K21.9) 05/08/2023 Hyperglycemia due to type 1 diabetes mellitus (ICD-10 - E10.65) Continue same as he Morelia Ervin discussed. Waiting for Endocrinology referral. Recheck here in 2 weeks. 05/01/2023 Type 1 diabetes mellitus with hypoglycemia without coma (ICD-10 - E10.649) 05/01/2023 Type 1 diabetes mellitus with other specified complication (ICD-10 - E10.69) The patient is using an Omnipod5 insulin pump with Humalog U200, he has always used the U200 Humalog and was previously on the Medtronic pump. [place] report is generated and reviewed, the patient has an average blood glucose of 194 mg/dL with average 39 units of daily insulin use, the pump has been in Manual mode approximately 95% of the time, with no connection with Dexcom. He states his Dexcom will not connect with his phone or pump. He did change the Dexcom sensor but this did not resolve the situation. He also changed the Transmitter recent on 04/13/23. He is unsure of why his Dexcom will not connect. The Dexcom G6 continuous glucose monitor is reviewed, the data stops on 04/22/2023. The radha is removed from the phone and the phone are reset. The Dexcom G6 radha is reinstalled on the phone and restarted the sensor session. The transmitter ID is checked with the phone and Omnipod PDM, both have the same ID number. Checked the transmitter number that he is using today with the sensor, the ID numbers do not match. This is the reason that the system will not connect. Reminded patient that he has to use the same Transmitter that is programmed into the devices. He thinks he has the other transmitter at home he will go home and reconnect with the other transmitter. Discussed use of basal and bolus insulin instead of the Omnipod5 pump for safety of the patient. He agrees, and his pod was removed and the PDM is turned off. He does have a new PDM that will need to be programmed should he decide to go back on the pump at a later date. This PDM is not programmed today. He has taken Semglee and Lantus in the past. Lantus pens and pen needles are given and patient understands he will take 30 units of Lantus once daily and use the Humalog U200 based on sliding scale with meals only. A fingerstick blood glucose is checked, his current blood glucose is 68 mg/dL, carbohydrate drink is provided and advised patient to start Lantus tonight after dinner. He agrees to follow up with his primary care clinic as instructed, and he has referrals to Neurology and Endocrinology pending. He will follow up here at [facility] in one month. All questions answered and concerns addressed. Total time spent with patient is 35 minutes 04/05/2023 Type 1 diabetes mellitus with hyperglycemia (ICD-10 - E10.65) 03/20/2023 Type 1 diabetes mellitus with hypoglycemia without coma (ICD-10 - E10.649) 03/20/2023 Type 1 diabetes mellitus with hyperglycemia (ICD-10 - E10.65) The patient is using an Omnipod DASH insulin pump and Dexcom G6 continuous glucose monitor. He is using Humalog insulin since starting the pump. The data from the pump and cgm is downloaded and interpreted, some hyperglycemia is noted. No adjustments are made to the Total Daily Basal or Bolus settings at this time. His average insulin use has been around 40 units per day, and he is not using the Activity function. Reviewed, at length, hypoglycemia prevention and treatment with patient and girlfriend including use of glucagon rescue kit both nasal and injection. Written and verbal instructions are provided for patient and girlfriend to share with roommate and friends. Encouraged patient to have a hypoglycemia awareness card or some type of Medical Alert. Encouraged patient to use the Activity function on his pump when working to prevent hypoglycemia and to respond to Dexcom G6 alerts and alarms. Reviewed Pod placement, Automated mode and encouraged patient to use an radha or food label for accurate carbohydrate counting. An A1C is checked, result is 7.0% He agrees to follow up with his primary care clinic as instructed, and he will follow up here at [facility] in one month for any adjustments or PRN. All questions answered and concerns addressed. Total time spent with patient is 38 minutes 01/15/2023 Asthma exacerbation (ICD-10 - J45.901) Increase fluids, take medication as directed. RTC if no improvement with treatment. 07/11/2022 Type 1 diabetes mellitus with hyperglycemia (ICD-10 - E10.65) Keep apt with [facility] as scheduled. Recheck here 3 months and PRN. 07/11/2022 Anxiety (ICD-10 - F41.9) Recheck 3 weeks. 07/11/2022 Insulin long-term use (ICD-10 - Z79.4) 05/01/2023 Insulin long-term use (ICD-10 - Z79.4) 03/20/2023 Insulin long-term use (ICD-10 - Z79.4) 05/08/2023 Insulin long-term use (ICD-10 - Z79.4) 05/01/2023 Nausea (ICD-10 - R11.0) 01/17/2023 Insulin long-term use (ICD-10 - Z79.4) 12/17/2022 terminal carman (current) use of insulin (ICD-10 - Z79.4) 10/02/2022 Skin pustule (ICD-10 - L08.9) continue skin care 07/17/2022 Insulin pump titration (ICD-10 - Z46.81) 08/14/2022 Insulin pump fitting or adjustment (ICD-10 - Z46.81) 08/14/2022 Uses self-applied continuous glucose monitoring device (ICD-10 - Z97.8) 07/17/2022 Uses self-applied continuous glucose monitoring device (ICD-10 - Z97.8) 10/02/2022 Type 1 diabetes mellitus with hyperglycemia (ICD-10 - E10.65) monitor blood sugar 12/17/[address] (ICD-10 - Z96.41) 01/17/[address] (ICD-10 - Z96.41) 05/01/2023 Seizures (ICD-10 - R56.9) 03/20/[address] (ICD-10 - Z96.41) 05/01/[address] (ICD-10 - Z96.41) 03/20/2023 Uses self-applied continuous glucose monitoring device (ICD-10 - Z97.8) 05/01/2023 Uses self-applied continuous glucose monitoring device (ICD-10 - Z97.8) 05/01/2023 Insulin long-term use (ICD-10 - Z79.4) 01/17/2023 Uses self-applied continuous glucose monitoring device (ICD-10 - Z97.8) 12/17/2022 Uses self-applied continuous glucose monitoring device (ICD-10 - Z97.8) 10/02/2022 Insulin long-term use (ICD-10 - Z79.4) 10/02/[address] (ICD-10 - Z96.41) 05/01/[address] (ICD-10 - Z96.41) 03/20/2023 Other Diabetes Blood Sugar Emergencies: Your Action Plan material was printed, Learning About Low Blood Sugar (Hypoglycemia) in Diabetes material was printed, Hypoglycemia: Care Instructions material was printed, How to Give a Glucagon Shot: Care Instructions material was printed, Diabetes Sick-Day Plan: Care Instructions material was printed, Learning About Diabetes and Exercise material was printed 10/02/2022 Other Questions asked and answered; discharged to home. PLAN OF TREATMENT Pending Test Test Name Order Date Hemoglobin A1c [id number] 04/11/2022 Next Appt Details Provider Name:Abby Fermin kwon, 06/05/2023 04:30:00 PM, [address], [place], [phone], Provider Name:Abby kwon, 06/20/2023 04:00:00 PM, [address], [place], [phone], Insurance Providers Payer Name Payer Address Payer Phone Subscriber Number Group Number Insured Name Patient Relationship to Insured Coverage Start Date Coverage End Date Get Me Listed [address] [address] [place] [address] [id number] Cooper Hsu Child - Insured has Financial Responsibility MEDICATIONS ADMINISTERED Medication Instructions Date of Administration Dosage Notes Rocephin 10/02/2022 [address] [facility] [phone] -11 pt tolerated well/instructed to wait 20 min MEDICAL (GENERAL) HISTORY Medical History History ICD Code type I diabetes Hospitalization History Reason Date(Month/Year) [facility] ER-hypoglycemia 04/2023 [facility] ER- diabetes 07-10-22 hypoglycemic seizure 03/13/23 DKA [facility] 12/11/2022
[2023-05-12] MEDS: lidocaine 1% 5 ML in potassium chloride premix 100 ML 25 ML IV (10:04)
[2023-05-12 11:05] LABS: Glucose Point of Care 243 mg/dL (70-110)
[2023-05-12 11:34] LABS: Glucose Point of Care 237 mg/dL (70-110)
[2023-05-12 12:49] LABS: Blood Urea Nitrogen 15 mg/dL (6-20); Calcium 8.8 mg/dL (8.5-10.5); Carbon Dioxide 15 mmol/L (22-29); Chloride 102 mmol/L (98-107); Glomerular Filtration Rate 85.3 mL/min (90-130); Glucose 231 mg/dL (65-115); Magnesium 2.4 mg/dL (1.7-2.3); Osmolality Calculated 288 mOsm/kg (285-295); Phosphorus 1.7 mg/dL (2.5-4.5); Sodium 135 mmol/L (136-145)
[2023-05-12 12:51] LABS: Anion Gap 22.1 (5-19); Potassium 4.1 mmol/L (3.5-5.1)
[2023-05-12 13:00] LABS: Glucose Point of Care 221 mg/dL (70-110)
[2023-05-12 13:43] LABS: Glucose Point of Care 219 mg/dL (70-110)
--- NOTE | 2023-05-12 14:35 | PM.PN ---
Subjective Subjective: Asking when he can go home. He states he was on an insulin pump recently that was stopped by his family services specialist. He states he will be setting up with a new family services specialist soon. He generally asked me questions about gastroparesis, DKA, diabetes in general. Vitals/I&O/Wt Last Vital Signs Temp 98.2 F 05/12/23 11:55 Pulse 93 05/12/23 12:00 Resp 12 05/12/23 12:00 BP 143/91 05/12/23 12:00 Pulse Ox 100 05/12/23 12:00 O2 Del Method Room Air 05/12/23 11:00 FiO2 21 05/11/23 23:51 05/11/23 05/12/23 05/12/23 22:59 06:59 14:59 Intake Total 1000 / 1000 3368.622 / 4368.622 1000 / 1000 Balance 1000 / 1000 3368.622 / 4368.622 1000 / 1000 Weight last 48 hrs Weight 78.103 kg Weight 77.111 kg Physical Exam Const: COMMON NORMALS: no acute distress and patient oriented x3 HENMT: COMMON NORMALS: normocephalic HEAD & SCALP: normocephalic Neck/C-Spine: COMMON NORMALS: no JVD Resp: COMMON NORMALS: normal respiratory effort, No retractions, No use of accessory muscles and clear to auscultation bilaterally AUSCULTATION: clear to auscultation bilaterally Cardio: COMMON NORMALS: no JVD, regular rate, regular rhythm, S1 normal heart sound present and S2 normal heart sound present RATE: regular rate RHYTHM: regular rhythm HEART SOUNDS: S1 normal heart sound present and S2 normal heart sound present GI: COMMON NORMALS: Normal to inspection, nondistended, normoactive bowel sounds present, Soft to palpation and non-tender PALPATION: Yes Soft to palpation Extremity: COMMON NORMALS: no calf tenderness and no pedal edema Neuro: COMMON NORMALS: patient oriented x3, CN's II-XII intact bilaterally and moves all extremities Psych: COMMON NORMALS: mental status grossly normal Data 05/11/23 19:50 05/12/23 11:45 A&P Assessment and plan (1) Diabetic ketoacidosis: (2) Intractable nausea and vomiting: (3) Cannabis hyperemesis syndrome 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 -Lovenox for DVT prophylaxis Intractable nausea, vomiting -Likely marijuana hyperemesis syndrome -Continues to have multiple episodes of nausea vomiting in the ER despite receiving Zofran and Reglan -Continue Zofran, Reglan added on promethazine Epigastric discomfort, severe gastritis, GI cocktail Attestations Medical Necessity Statement*: Patient requires hospitalization, inpatient, greater than 2 midnights, for diabetic ketoacidosis, intractable nausea and vomiting, marijuana hyperemesis syndrome Diagnoses Diabetic ketoacidosis E11.10 Intractable nausea and vomiting R11.2 Cannabis hyperemesis syndrome concurrent with and due to cannabis abuse F12.188
[2023-05-12 14:44] LABS: Glucose Point of Care 254 mg/dL (70-110)
--- NOTE | 2023-05-12 15:18 | PC.NURSE ---
Visitor. Patient allowed to have 1 overnight visitor per Chelsy salon manager.
[2023-05-12 15:50] LABS: Glucose Point of Care 229 mg/dL (70-110)
[2023-05-12 16:35] LABS: Blood Urea Nitrogen 13 mg/dL (6-20); Calcium 8.8 mg/dL (8.5-10.5); Carbon Dioxide 19 mmol/L (22-29); Chloride 101 mmol/L (98-107); Glomerular Filtration Rate 95.3 mL/min (90-130); Glucose 224 mg/dL (65-115); Magnesium 2.2 mg/dL (1.7-2.3); Osmolality Calculated 285 mOsm/kg (285-295); Sodium 134 mmol/L (136-145)
[2023-05-12 16:40] LABS: Anion Gap 18.2 (5-19); Potassium 4.2 mmol/L (3.5-5.1)
[2023-05-12 17:58] LABS: Glucose Point of Care 197 mg/dL (70-110)
[2023-05-12 17:58] LABS: Glucose Point of Care 197 mg/dL (70-110)
[2023-05-12 19:13] LABS: Glucose Point of Care 150 mg/dL (70-110)
[2023-05-12 20:05] LABS: Glucose Point of Care 137 mg/dL (70-110)
[2023-05-12] MEDS: pantoprazole 40 mg SDV IVP (20:11)
[2023-05-12 21:07] LABS: Glucose Point of Care 213 mg/dL (70-110)
[2023-05-12 21:31] LABS: Anion Gap 19.8 (5-19); Blood Urea Nitrogen 11 mg/dL (6-20); Calcium 8.6 mg/dL (8.5-10.5); Carbon Dioxide 18 mmol/L (22-29); Chloride 102 mmol/L (98-107); Glomerular Filtration Rate 123.2 mL/min (90-130); Glucose 230 mg/dL (65-115); Magnesium 1.9 mg/dL (1.7-2.3); Osmolality Calculated 289 mOsm/kg (285-295); Phosphorus 1.3 mg/dL (2.5-4.5); Potassium 3.8 mmol/L (3.5-5.1); Sodium 136 mmol/L (136-145)
[2023-05-12 22:23] LABS: Glucose Point of Care 256 mg/dL (70-110)
[2023-05-12] MEDS: ondansetron 2 mg/ML SDV 2 mL 4 MG IVP (22:29)
[2023-05-12 23:16] LABS: Glucose Point of Care 244 mg/dL (70-110)
[2023-05-13] VITALS (18 sets, daily range): BP systolic 106–159; BP diastolic 53–100; PULSE 54–117; RESP 15–22; TEMP 36.6–36.8; O2SAT 95–100
[2023-05-13 00:23] LABS: Glucose Point of Care 225 mg/dL (70-110)
[2023-05-13 01:06] LABS: Glucose Point of Care 224 mg/dL (70-110)
[2023-05-13 02:06] LABS: Glucose Point of Care 239 mg/dL (70-110)
[2023-05-13 02:06] LABS: Anion Gap 16.3 (5-19); Blood Urea Nitrogen 11 mg/dL (6-20); Calcium 8.8 mg/dL (8.5-10.5); Carbon Dioxide 21 mmol/L (22-29); Chloride 103 mmol/L (98-107); Glomerular Filtration Rate 95.3 mL/min (90-130); Glucose 261 mg/dL (65-115); Osmolality Calculated 290 mOsm/kg (285-295); Potassium 4.3 mmol/L (3.5-5.1); Sodium 136 mmol/L (136-145)
[2023-05-13 03:19] LABS: Glucose Point of Care 227 mg/dL (70-110)
[2023-05-13 04:11] LABS: Glucose Point of Care 224 mg/dL (70-110)
[2023-05-13 05:06] LABS: Glucose Point of Care 215 mg/dL (70-110)
[2023-05-13 05:18] LABS: Anion Gap 17.4 (5-19); Blood Urea Nitrogen 11 mg/dL (6-20); Calcium 8.4 mg/dL (8.5-10.5); Carbon Dioxide 22 mmol/L (22-29); Chloride 105 mmol/L (98-107); Glomerular Filtration Rate 107.6 mL/min (90-130); Glucose 260 mg/dL (65-115); Osmolality Calculated 298 mOsm/kg (285-295); Potassium 4.4 mmol/L (3.5-5.1); Sodium 140 mmol/L (136-145)
[2023-05-13 06:15] LABS: Glucose Point of Care 218 mg/dL (70-110)
[2023-05-13 07:17] LABS: Glucose Point of Care 214 mg/dL (70-110)
[2023-05-13 08:25] LABS: Glucose Point of Care 219 mg/dL (70-110)
[2023-05-13 08:33] LABS: Anion Gap 15.3 (5-19); Blood Urea Nitrogen 9 mg/dL (6-20); Calcium 8.6 mg/dL (8.5-10.5); Carbon Dioxide 23 mmol/L (22-29); Chloride 103 mmol/L (98-107); Glomerular Filtration Rate 107.6 mL/min (90-130); Glucose 265 mg/dL (65-115); Osmolality Calculated 292 mOsm/kg (285-295); Potassium 4.3 mmol/L (3.5-5.1); Sodium 137 mmol/L (136-145)
[2023-05-13] MEDS: D5-NS 0.45% + KCL 20 mEq 20 MEQ/1,000 ML BAG 100 MEQ IV (09:20)
[2023-05-13 09:23] LABS: Glucose Point of Care 235 mg/dL (70-110)
[2023-05-13 10:47] LABS: Glucose Point of Care 240 mg/dL (70-110)
[2023-05-13 12:45] LABS: Glucose Point of Care 208 mg/dL (70-110)
[2023-05-13 13:01] LABS: Anion Gap 20.7 (5-19); Blood Urea Nitrogen 8 mg/dL (6-20); Calcium 9.1 mg/dL (8.5-10.5); Carbon Dioxide 21 mmol/L (22-29); Chloride 101 mmol/L (98-107); Glomerular Filtration Rate 107.6 mL/min (90-130); Glucose 249 mg/dL (65-115); Osmolality Calculated 295 mOsm/kg (285-295); Potassium 3.7 mmol/L (3.5-5.1); Sodium 139 mmol/L (136-145)
--- NOTE | 2023-05-13 13:04 | P.DS_ITS ---
Discharge Providers Date of Admission: 05/11/23 23:15 Date of Discharge: May 13, 2023 Attending Provider at Admission: Rashid Moe MD Attending Provider at Discharge: Ladi Cano MD Primary Care Provider: Raquel Shay APN Diagnoses at Discharge Discharge Diagnosis (1) Diabetic ketoacidosis: Status: Acute (2) Intractable nausea and vomiting: Status: Acute (3) Cannabis hyperemesis syndrome concurrent with and due to cannabis abuse: Status: Acute Reason for Visit Reason for Visit: vomiting days, uncontrolled bg Hospital Course Hospital Course Sourav Hsu is a 18 year old male with DM1, follows with quantitative consultant in [place], recently canged from insulin pump back to basal/bolus insulin 2 weeks ago came in on 05/11 reporting abnormal fingerstick numbers including hypoglycemia and hyperglycemia at home. He was diagnosed with DKA on admission. HE was managed per DKA/ [facility] protocol. Anion gap has been closed this morning, on 3 serial checks. Insulin drip discontinued, overlap with 15 units of lantus currently, therafter start sliding scale insulin. He was started on a diet which he tolerated. HE will return home and use 30 U lantus at night and sliding scale humalog as recommended by his endocrinologits. He requests referral to [facility] endocrinology to establish services closer to home. This has been provided. Physical Exam Narrative: General: No acute distress, AO x3 HEENT: PERRLA, pupils bilaterally equal and reactive, pallors not present Chest: Normal vesicular breath sounds, no added sounds, equal good air entry bilaterally CVS: S1-S2 regular, no murmurs, no tachycardia, no gallops, no rubs Abdomen: Soft, nontender, no organomegaly, bowel sounds present Neuro: No focal deficits, no facial deformity, AO x3, power 5/5 in all limbs Discharge Data Studies Completed and Pending Completed Studies During Hospitalization Category Date Time Status XR KUB portable [id number] Stat Exams 05/11/23 20:47 Completed XR chest 1V portable [id number] Stat Exams 05/11/23 20:47 Completed Radiology Impressions Chest X-Ray 05/11/23 20:47 IMPRESSION: No acute plain radiographic abnormality. KUB X-Ray 05/11/23 20:47 IMPRESSION: Suggestion of mild gastric wall thickening, please correlate for any evidence of gastritis. Nonobstructive bowel gas pattern. Laboratory Results WBC 15.87 10^3/uL (4.5-13.0) H 05/11/23 19:50 RBC 5.64 10^6/uL (3.85-5.65) 05/11/23 19:50 Hgb 16.50 g/dL (13.2-15.6) H 05/11/23 19:50 Hct 47.6 % (37-53) 05/11/23 19:50 MCV 84.4 fl (82-101) 05/11/23 19:50 MCH 29.3 pg (27-33) 05/11/23 19:50 MCHC 34.7 g/dL (30-55) 05/11/23 19:50 RDW 12.6 % (12.1-15.1) 05/11/23 19:50 Plt Count 338 10^3/cmm (157-399) 05/11/23 19:50 MPV 9.6 fL (7.4-10.4) 05/11/23 19:50 Neut % (Auto) 88.5 % 05/11/23 19:50 Lymph % (Auto) 6.1 % 05/11/23 19:50 [place] % (Auto) 4.3 % 05/11/23 19:50 Eos % (Auto) 0.1 % 05/11/23 19:50 Baso % (Auto) 0.4 % 05/11/23 19:50 Neut # (Auto) 14.06 10^3/uL (1.8-8.0) H 05/11/23 19:50 Lymph # (Auto) 1.0 10^3/uL (1.5-6.5) L 05/11/23 19:50 [place] # (Auto) 0.7 10^3/uL (0.2-0.9) 05/11/23 19:50 Eos # (Auto) 0.0 10^3/uL (0.0-0.8) 05/11/23 19:50 Baso # (Auto) 0.1 10^3/uL (0.0-0.1) 05/11/23 19:50 Nucleated RBC % (auto) 0 % 05/11/23 19:50 Nucleated RBCs # 0.0 /100WBC 05/11/23 19:50 Specimen Type Arterial 05/11/23 20:25 Sample Site Brachial, left 05/11/23 20:25 ABG pH 7.27 (7.35-7.45) L 05/11/23 20:25 ABG pCO2 29.5 mmHg (35-45) L 05/11/23 20:25 ABG pO2 53.9 mmHg (80.0-100.0) L 05/11/23 20: ABG PO2/FiO2 Ratio 0 05/11/23 20: ABG HCO3 13.4 mmol/L (22-26) L 05/11/23 20: ABG Base Excess -12.0 mmol/L (-2.0-2.0) L 05/11/23 20:25 Steven Test Pos 05/11/23 20:25 Hematocrit 48.7 % (42-52) 05/11/23 20: O2 Delivery Device None 05/11/23 20: FiO2 21.0 % 05/11/23 20:25 Ecommerce Manager ID [email or web address] 05/11/23 20:25 Sodium 139 mmol/L (136-145) 05/13/23 12:32 Potassium 3.7 mmol/L (3.5-5.1) 05/13/23 12:32 Chloride 101 mmol/L (98-107) 05/13/23 12:32 Carbon Dioxide 21 mmol/L (22-29) L 05/13/23 12:32 Anion Gap 20.7 (5-19) H 05/13/23 12:32 BUN 8 mg/dL (6-20) 05/13/23 12:32 Creatinine 0.9 mg/dL (0.7-1.2) 05/13/23 12:32 GFR Calculation 107.6 mL/min (90-130) 05/13/23 12:32 Glucose 249 mg/dL (65-115) H 05/13/23 12:32 POC Glucose 208 mg/dL (70-110) H 05/13/23 12:37 Estimat Average Glucose 157 05/11/23 20:22 Hemoglobin A1c 7.1 % (4.0-6.0) H 05/11/23 20:22 Calculated Osmolality 295 mOsm/kg (285-295) 05/13/23 12:32 Lactic Acid 3.0 mmol/L (0.5-2.2) H 05/11/23 19:50 Lactic Acid (Sepsis) 1.1 mmol/L (0.5-2.2) 05/12/23 02:00 Calcium 9.1 mg/dL (8.5-10.5) 05/13/23 12:32 Phosphorus 1.3 mg/dL (2.5-4.5) L 05/12/23 20:35 Magnesium 1.9 mg/dL (1.7-2.3) 05/12/23 20:35 Total Bilirubin 1.2 mg/dL (0.15-1.2) 05/11/23 19:50 AST 26 U/L (0-40) 05/11/23 19:50 ALT 36 U/L (0-41) 05/11/23 19:50 Alkaline Phosphatase 98 U/L (40-130) 05/11/23 19:50 C-Reactive Protein 3.0 mg/L (0.0-4.9) 05/11/23 20:47 Total Protein 8.5 g/dL (6.6-8.7) 05/11/23 19:50 Albumin 5.1 g/dL (3.5-5.2) 05/11/23 19:50 Globulin 3.4 g/dL (1.3-4.6) 05/11/23 19:50 Triglycerides 89 mg/dL (0-150) 05/11/23 20:22 Cholesterol 114 mg/dL (0-200) 05/11/23 20:22 LDL Cholesterol, Calc 54 mg/dL (50-129) 05/11/23 20:22 HDL Cholesterol 42 mg/dL (60-100) L 05/11/23 20:22 LDL/HDL Ratio 1.29 RATIO (0.00-3.22) 05/11/23 20:22 Cholesterol/HDL Ratio 2.71 mg/dL (1.0-5.00) 05/11/23 20:22 Lipase 27 U/L (13-60) 05/11/23 19:50 Procalcitonin 0.34 ng/mL (0-0.5) 05/11/23 20:47 TSH 0.43 uIU/mL (0.27-4.20) 05/11/23 20:22 Urine Color Yellow (Yellow) 05/11/23 21:59 Urine Appearance Clear (CLEAR) 05/11/23 21:59 Urine pH 5 (5-7) 05/11/23 21:59 Ur Specific [place] 1.020 (1.005-1.030) 05/11/23 21:59 Urine Protein Neg (Negative) 05/11/23 21:59 Urine Glucose (UA) 4+ (Normal) H 05/11/23 21:59 Urine Ketones 3+ (Negative) H 05/11/23 21:59 Urine Blood Neg (Negative) 05/11/23 21:59 Urine Nitrate Negative (Negative) 05/11/23 21:59 Urine Bilirubin Neg (Negative) 05/11/23 21:59 Urine Urobilinogen Norm mg/dL (Negative) 05/11/23 21:59 Ur Leukocyte Esterase Negative (Negative) 05/11/23 21:59 Urine Opiates Screen Negative ng/mL (Negative) 05/11/23 21:59 Ur Barbiturates Screen Negative ng/mL (Negative) 05/11/23 21:59 Ur Phencyclidine Scrn Negative ng/mL (Negative) 05/11/23 21:59 Ur Amphetamines Screen Negative ng/mL (Negative) 05/11/23 21:59 U Benzodiazepines Scrn Negative ng/mL (Negative) 05/11/23 21:59 Urine Cocaine Screen Negative ng/mL (Negative) 05/11/23 21:59 U Marijuana (THC) Screen Positive ng/mL (Negative) H 05/11/23 21:59 Ethyl Alcohol < 10 mg/dL (0-10) 05/11/23 20:47 Vitals Last Vital Signs Temp 97.9 F 05/13/23 08:00 Pulse 91 05/13/23 10:00 Resp 19 H 05/13/23 10:00 BP 130/79 05/13/23 10:00 Pulse Ox 98 05/13/23 09:54 O2 Del Method Room Air 05/13/23 09:54 FiO2 21 05/11/23 23:51 Discharge Plan Discharge Patient Disposition: Home Condition: Stable Prescriptions: Continued Humalog KwikPen Insulin 200 unit/mL (3 mL) insulin pen See Rx Instructions .ROUTE .COMPLEX Rx Instructions: sliding scale tid albuterol sulfate 90 mcg/actuation HFA aerosol inhaler 2 puff INHALATION Q6H PRN (Reason: Shortness Of Breath Or Wheezing) Tylenol Ex Str Rapid Release 500 mg Tablet 1,000 mg PO Q6H PRN (Reason: Pain) ondansetron 8 mg tablet,disintegrating 8 mg PO Q6H PRN (Reason: Nausea And Vomiting) pantoprazole 40 mg tablet,delayed release (DR/EC) 40 mg PO QAM ondansetron 4 mg tablet,disintegrating 4 mg PO Q6H PRN (Reason: Nausea And Vomiting) melatonin 5 mg Tablet 5 mg PO BEDTIME Semglee(insulin glarg-yfgn)Pen 100 unit/mL (3 mL) insulin pen 30 unit SUBCUT BEDTIME Discharge Orders: Discharge Order (Routine); Ordered 05/13/23 Ordered By: Ladi Cano Referrals: Jaspal,RUBEN García [Primary Care Provider] - Laura Kelly MD [Physician] - 2 weeks (uncontrolled type 1 DM ) Discharge Diet: Diabetic Discharge Activity: Resume usual activity Patient Instructions: Opioid Safety Discharge Attestations Time Spent in Discharge Care*: greater than 30 min Quality Metrics Clinical Quality Measures [ No reported AMI, CVA or VTE this stay] Coding Level of Care Code Acute Code for Chg Fwd Diagnoses Diabetic ketoacidosis E11.10 Intractable nausea and vomiting R11.2 Cannabis hyperemesis syndrome concurrent with and due to cannabis abuse F12.188
[2023-05-13] MEDS: insulin glargine 100 units/1 mL 15 UNIT SUBCUT (13:18)
[2023-05-13 15:00] LABS: Glucose Point of Care 275 mg/dL (70-110)
--- NOTE | 2023-05-13 15:23 | PC.NURSE ---
Discharge Note Patient discharged to home accompanied by significant other. Patient is alert/oriented x4 on room air upon discharge. All IV's removed upon discharge. Discharge instructions reviewed with patient and/or solar sales representative. Patient belongings returned upon discharge.
[2023-05-13 17:23] LABS: Glucose Point of Care 323 mg/dL (70-110)
== END 2023-05-13 15:16 | disposition home or self-care (01) | DRG 639 ==
LOC: ER 19:48 → ER IP 05-12 01:59 → ICU 05-12 07:24 → ER IP 05-12 09:33
PROVIDERS: Internal Medicine; Admitting Provider Family Medicine; Emergency Provider Emergency Medicine; PCP Nurse Practitioner Family; Visit Provider Student in an Organized Health Care Education/Training Program
DX: E10.10 Type 1 diabetes mellitus with ketoacidosis without coma (principal); Z79.4 Long term (current) use of insulin; R11.2 Nausea with vomiting, unspecified; F12.188 Cannabis abuse with other cannabis-induced disorder
CPT/HCPCS: 36415; 36416; 36600; 71045; 74018; 80048; 80053; 80061; 80306; 80307; 81003; 82803; 82962; 83036; 83605; 83690; 83735; 84100; 84145; 84443; 85025; 86140; 94664; 96365; 96366; 96367; 96372; 96375; 96376; 99291; C9113; J1200; J1815; J2405; J2765; J3480; J7030; J7050

== ENCOUNTER 2023-06-08 23:04 | Inpatient (IN) | payer OTHER, SELFPAY ==
[2023-06-08 23:29] VITALS: BP 159/77; PULSE 116; RESP 22; TEMP 36.8; O2SAT 97; BMI 22.9
--- NOTE | 2023-06-08 23:46 | ED_ITS ---
HPI - Recheck/Abnormal Lab/Rx 2 General: Chief Complaint: Recheck/Abnormal Lab/Rx Stated Complaint: n/v, high bs Time Seen by Provider: 06/08/23 23:26 Source: patient Mode of arrival: ambulatory Limitations: no limitations History of Present Illness: 18-year-old male who has a history of ty pe 1 diabetes he has been seen here multiple times in DKA. He states that today has been vomiting throughout the day states that his blood sugars have been running high and he is tested positive for ketones and feels like he is in DKA. He had some abdominal cramping states he is continue to vomit this evening. Denies any fevers denies any worsening proving factors. Review of Systems 2 Const: Denies: fever(s), chills, body aches or change in appetite Eyes: Denies: eye discomfort ENMT: Denies: throat pain or dental pain Card: Denies: chest pain Resp: Denies: dyspnea GI: Reports: abdominal pain, nausea and vomiting; Denies: diarrhea : Denies: dysuria Musc: Denies: neck pain or back pain Skin/Breast: Denies: rash Neuro: Denies: headache(s) PFSH ED 2 PFSH: Medical History Type 1 diabetes Surgical History No significant past surgical history Family History (Updated 05/11/23 @ 22:08 by Rashid Moe MD) Other Depression Social History Smoking and tobacco/nicotine status: never used tobacco/nicotine Alcohol intake: never Lives independently: Yes Household members: other Details: ancee Current occupational status: employed Physical Exam 2 Const: COMMON NORMALS: patient oriented x3 GENERAL APPEARANCE: ill appearing HENMT: COMMON NORMALS: normocephalic and atraumatic HEAD & SCALP: n ormocephalic and atraumatic Eye: COMMON NORMALS: conjunctivae normal CONJUNCTIVA: Yes conjunctivae normal Neck/C-Spine: COMMON NORMALS: full ROM and supple Chest: COMMONS NORMALS: normal inspection of the chest Resp: COMMON NORMALS: normal respiratory effort, No retractions, No use of accessory muscles and clear to auscultation bilaterally AUSCULTATION: clear to auscultation bilaterally Cardio: COMMON NORMALS: regular rhythm and No murmurs present (Cardio) R ATE: tachycardic RHYTHM: regular rhythm Extremity: COMMON NORMALS: normal to inspection and full ROM Neuro: COMMON NORMALS: patient oriented x3, moves all extremities and no focal motor deficits Psych: COMMON NORMALS: mental status grossly normal, Normal thought process present and cooperative THOUGHT PROCESS: Normal thought process present Skin: COMMON NORMALS: no rashes or lesions noted and no wounds GENERAL SKIN EXAM: no rashes or lesions noted Course 2 Vital Signs: Vital signs: Vital Signs Temperature 98.2 F 06/08/23 23:29 Pulse Rate 116 H 06/08/23 23:29 Respiratory Rate 22 H 06/08/23 23:29 Blood Pressure 159/77 06/08/23 23:29 Pulse Oximetry 97 06/08/23 23:29 Oxygen Delivery Me thod Room Air 06/08/23 23:29 MDM - Recheck/Abnormal Lab/Rx Medical Decision Making Patient presents here with DKA he started on insulin drip I spoke to the hospitalist will admit to ICU. Medical Records I reviewed the patient's medical records. Lab Data I reviewed the patient's lab results. 06/09/23 00:03 06/09/23 00:03 Laboratory Results Specimen Type Arterial 06/08/23 00:09 Sample Site Brachial, right 06/08/23 00:09 ABG pH 7.24 (7.35-7.45) L 06/08/23 00:09 ABG pCO2 23.8 mmHg (35-45) L 06/08/23 00:09 ABG pO2 99.7 mmHg (80.0-100.0) 06/08/23 00:09 ABG HCO3 10.2 mmol/L (22-26) L 06/08/23 00:09 ABG Base Excess -15.2 mmol/L (-2.0-2.0) L 06/08/23 00:09 Steven Test N/a 06/08/23 00:09 Hematocrit 46.6 % (42-52) 06/08/23 00:09 O2 Delivery Device Room air 06/08/23 00:09 Deaf Interpreter ID [email or web address] 06/08/23 00:09 Sodium 132 mmol/L (136-145) L 06/09/23 00:03 Potassium 6.2 mmol/L (3.5-5.1) H 06/09/23 00:03 Chloride 89 mmol/L (98-107) L 06/09/23 00:03 Carbon Dioxide 10 mmol/L (22-29) L 06/09/23 00:03 Anion Gap 39.2 (5-19) H 06/09/23 00:03 BUN 20 mg/dL (6-20) 06/09/23 00:03 Creatinine 1.3 mg/dL (0.7-1.2) H 06/09/23 00:03 GFR Calculation 70.4 mL/min (90-130) L 06/09/23 00:03 Glucose 621 mg/dL (65-115) H* 06/09/23 00:03 POC Glucose 556 mg/dL (70-110) H* 06/09/23 00:37 Calculated Osmolality 306 mOsm/kg (285-295) H 06/09/23 00:03 Calcium 9.5 mg/dL (8.5-10.5) 06/09/23 00:03 Total Bilirubin 0.8 mg/dL (0.15-1.2) 06/09/23 00:03 AST 55 U/L (0-40) H 06/09/23 00:03 ALT 53 U/L (0-41) H 06/09/23 00:03 Alkaline Phosphatase 97 U/L (40-130) 06/09/23 00:03 Total Protein 7.6 g/dL (6.6-8.7) 06/09/23 00:03 Albumin 4.8 g/dL (3.5-5.2) 06/09/23 00:03 Globulin 2.8 g/dL (1.3-4.6) 06/09/23 00:03 Lipase 29 U/L (13-60) 06/09/23 00:03 Urine Color Colorless (Yellow) 06/09/23 00: Urine Appearance Clear (CLEAR) 06/09/23 00: Urine pH 5 (5-7) 06/09/23 00: Ur Specific [place] 1.015 (1.005-1.030) 06/09/23 00: Urine Protein Neg (Negative) 06/09/23 00:06 Urine Glucose (UA) 4+ (Normal) H 06/09/23 00:06 Urine Ketones 2+ (Negative) H 06/09/23 00:06 Urine Blood Neg (Negative) 06/09/23 00:06 Urine Nitrate Negative (Negative) 06/09/23 00:06 Urine Bilirubin Neg (Negative) 06/09/23 00:06 Urine Urobilinogen Norm mg/dL (Negative) 06/09/23 00:06 Ur Leukocyte Esterase Negative (Negative) 06/09/23 00:06 Serum Ketones Negative (Negative) 06/09/23 00:03 All radiology interpretation(s) finalized by discharge Critical Care Time 2 Critical Care Time: Critical Care Time: Yes Total Critical Care Time: 40 Attestation: The high probability of a clinically significant, sudden or life threatening deterioration of the patient's endocrine system(s) required my full and direct attention, intervention and personal management. The critical care time is as shown. This time is in addition to time spent performing any reported procedures but includes the following: [x] Data and vital sign review and interpretation [x] Patient assessment, examination and intervention [x] Documentation [x] Medication orders and management Discharge Plan Discharge Patient Disposition: Admitted As Inpatient Clinical Impression: Diabetic ketoacidosis Condition: Stable Prescriptions: No Action Humalog KwikPen Insulin 200 unit/mL (3 mL) insulin pen See Rx Instructions .ROUTE .COMPLEX Rx Instructions: sliding scale tid albuterol sulfate 90 mcg/actuation HFA aerosol inhaler 2 puff INHALATION Q6H PRN (Reason: Shortness Of Breath Or Wheezing) acetaminophen 500 mg Tablet 1,000 mg PO Q6H PRN (Reason: Pain) ondansetron 8 mg tablet,disintegrating 8 mg PO Q6H PRN (Reason: Nausea And Vomiting) pantoprazole 40 mg tablet,delayed release (DR/EC) 40 mg PO QAM ondansetron 4 mg tablet,disintegrating 4 mg PO Q6H PRN (Reason: Nausea And Vomiting) melatonin 5 mg Tablet 5 mg PO BEDTIME Semglee(insulin glarg-yfgn)Pen 100 unit/mL (3 mL) insulin pen 30 unit SUBCUT BEDTIME Referrals: Shay,Raquel, PROSPECTING DRILLER HELPER [Primary Care Provider] - Coding Level of Care Code ED Solar Installation Manager for Chg Mariaa
[2023-06-09] VITALS (37 sets, daily range): BP systolic 89–161; BP diastolic 36–81; PULSE 88–145; RESP 13–29; TEMP 37–37.7; O2SAT 94–99; BMI 22.6
[2023-06-09 00:09] LABS: Add Urine Microscopic? NO; Charge for UA Resulting for Rev
[2023-06-09 00:14] LABS: Bilirubin Urine Neg (Negative); Blood Urine Neg (Negative); Glucose Urine UA 4+ (Normal); Ketones Urine 2+ (Negative); Leukocyte Esterase Urine Negative (Negative); Nitrate Urine Negative (Negative); Protein Urine Neg (Negative); Specific Gravity, Urine 1.015 (1.005-1.030); Urine Appearance Clear (CLEAR); Urine Color Colorless (Yellow); Urobilinogen Urine Norm (Negative); pH Urine 5 (5-7)
[2023-06-09] MEDS: sodium chloride 0.9% 1,000 ML 999 ML IV (00:17)
[2023-06-09] MEDS: metoclopramide 5 mg/mL SDV 2 mL 10 MG IVP (00:18)
[2023-06-09 00:19] LABS: ABG PCO2 23.8 mmHg (35-45); ABG PH Result 7.24 (7.35-7.45); Arterial Blood Gas Hematocrit 46.6 % (42-52); Base Excess ABG -15.2 mmol/L (-2.0-2.0); Blood Gas Sample Site Brachial, right; Blood Gas Sample Type Arterial; HCO3 ABG 10.2 mmol/L (22-26); Oxygen Device ROOM AIR; PO2 ABG 99.7 mmHg (80.0-100.0)
[2023-06-09 00:26] LABS: Ketone (Acetest) Serum Negative (Negative)
[2023-06-09 00:27] LABS: Alanine Aminotransferase 53 U/L (0-41); Albumin Level 4.8 g/dL (3.5-5.2); Alkaline Phosphatase 97 U/L (40-130); Blood Urea Nitrogen 20 mg/dL (6-20); Calcium 9.5 mg/dL (8.5-10.5); Carbon Dioxide 10 mmol/L (22-29); Chloride 89 mmol/L (98-107); Globulin 2.8 g/dL (1.3-4.6); Glomerular Filtration Rate 70.4 mL/min (90-130); Lipase 29 U/L (13-60); Osmolality Calculated 306 mOsm/kg (285-295); Sodium 132 mmol/L (136-145); Total Bilirubin 0.8 mg/dL (0.15-1.2); Total Protein 7.6 g/dL (6.6-8.7)
[2023-06-09 00:28] LABS: Anion Gap 39.2 (5-19); Potassium 6.2 mmol/L (3.5-5.1)
[2023-06-09 00:29] LABS: Aspartate Amino Transferase 55 U/L (0-40)
[2023-06-09 00:30] LABS: Glucose 621 mg/dL (65-115)
[2023-06-09 00:40] LABS: Glucose Point of Care 556 mg/dL (70-110)
[2023-06-09 00:44] LABS: Basophils # 0.1 10^3/uL (0.0-0.1); Basophils % 0.3 %; Hematocrit 43.7 % (37-53); Lymphocytes # 0.8 10^3/uL (1.5-6.5); Lymphocytes % 2.5 %; Mean Corpuscular HGB Conc 34.1 g/dL (30-55); Mean Corpuscular Hemoglobin 30.3 pg (27-33); Mean Corpuscular Volume 88.8 fl (82-101); Mean Platelet Volume 10.7 fL (7.4-10.4); Monocytes # 2.3 10^3/uL (0.2-0.9); Monocytes % 7.2 %; Neutrophils # 27.65 10^3/uL (1.8-8.0); Neutrophils % 88.5 %; Nucleated Red Blood Cells % 0 %; Platelet Count 386 10^3/cmm (157-399); Red Blood Count 4.92 10^6/uL (3.85-5.65); Red Cell Distribution Width 13.2 % (12.1-15.1)
[2023-06-09 00:45] LABS: Slide Review Slide Review Perform
[2023-06-09 00:56] LABS: White Blood Count 31.25 10^3/uL (4.5-13.0)
[2023-06-09 01:46] LABS: Glucose Point of Care 548 mg/dL (70-110)
--- NOTE | 2023-06-09 02:31 | XRR_ITS ---
PROCEDURE INFORMATION: Exam: XR Complete Acute Abdomen Series Including Chest Exam date and time: 06/09/2023 3:11 AM Age: 18 years old Clinical indication: Nausea and vomiting; Patient HX: Cough with n/v. Currently in dka. ; Additional info: Dka, vomiting, malaise TECHNIQUE: Imaging protocol: Radiologic exam. Complete acute abdomen series, including 2 or more views of the abdomen and a single view chest. COMPARISON: CR (ABDOMEN, ) 05/11/2023 8:56 PM FINDINGS: Lungs: Normal. No consolidation. Pleural spaces: Normal. No pleural effusions. No pneumothorax. Heart/Mediastinum: Normal. No cardiomegaly. Gastrointestinal tract: Normal. No bowel dilation. Intraperitoneal space: Normal. No free air. Bones/joints: Normal. No acute fracture. Soft tissues: Normal. XR/XR acute abdomen series [id number] IMPRESSION: No acute findings.
[2023-06-09] MEDS: insulin regular-human 250 UNIT in sodium chloride 0.9% 250 ML 7.07 UNIT IV (02:32)
[2023-06-09] MEDS: sodium chloride 0.9% 1,000 ML 200 ML IV (02:52)
[2023-06-09] MEDS: piperacillin-tazobactam 3.375 GM in sodium chloride 0.9% (plus) 50 ML IV (02:53)
[2023-06-09] MEDS: ondansetron 2 mg/ML SDV 2 mL 4 MG IVP (02:54)
--- NOTE | 2023-06-09 03:16 | P.HP_ITS ---
Providers/Chief Complaint 2 Admitting Physician: Evan Campos Primary Care Provider: Raquel Shay APN Chief Complaint: n/v, high bs History of Present Illness Pleasant 88-year-old gentleman with history of DM1 follows with endocrinology [place], previously on insulin pump, changed to subcutaneous insulin, recently hospitalized for DKA a month ago, returns to the hospital due to recurrent vomiting, malaise, nausea radiating to his lower back with pain. His life partner reports that they have been in contact with some people who have been sick recently. In ER he is to have sinus tachycardia, leukocytosis 31.25. Severely hyperglycemic, 621, sodium 132, potassium 6.2, anion gap 39.2, bicarb 10, ABG 7.2/23.8/99.7. New transaminitis, AST 55, LT 43, lipase 29. UA with 2+ ketones, 4+ glucose. Negative serum ketones. He is having persistent nausea. Review of Systems 2 Const: Reports: body aches, change in appetite and malaise Eyes: Denies: change in vision, eye discomfort or eye redness Card: Denies: chest pain, edema, pre-syncope or dyspnea on exertion Resp: Denies: dyspnea, productive cough, change in phlegm color or hemoptysis GI: Reports: nausea and vomiting : Denies: flank pain, difficulty urinating, urinary frequency or hematuria Musc: Reports: back pain; Denies: joint swelling or joint redness Skin/Breast: Denies: rash or new lesions Neuro: Denies: headache(s), numbness in extremities, weakness in extremities, dizziness, confusion or seizure-like activity Medications/Allergies Home Medications Medication Instructions Recorded Confirmed Last Taken Type albuterol sulfate 90 mcg/actuation 2 puff inhalation Q6H PRN 12/12/22 05/12/23 Unknown History aerosol inhaler Shortness Of Breath Or Wheezing insulin lispro 200 unit/mL (3 mL) See Rx Instructions .Route .COMPLEX 12/12/22 05/12/23 04/29/23 History subcutaneous pen (Humalog KwikPen U-200 Insulin) acetaminophen 500 mg tablet 1,000 mg PO Q6H PRN Pain 05/12/23 05/12/23 Unknown History insulin glargine-yfgn 100 unit/mL 30 unit SUBCUT BEDTIME 05/12/23 05/12/23 Unknown History (3 mL) subcutaneous pen (Semglee (insulin glargine-yfgn) Pen) melatonin 5 mg tablet 5 mg PO BEDTIME 05/12/23 05/12/23 Unknown History ondansetron 4 mg disintegrating 4 mg PO Q6H PRN Nausea And Vomiting 05/12/23 05/12/23 Unknown History tablet ondansetron 8 mg disintegrating 8 mg PO Q6H PRN Nausea And Vomiting 05/12/23 05/12/23 Unknown History tablet pantoprazole 40 mg tablet,delayed 40 mg PO QAM 05/12/23 05/12/23 Unknown History release Allergies Allergy/AdvReac Type Severity Reaction Status Date / Time codeine Allergy Intermediate ADR-Nausea Verified 04/29/23 14:25 PFSH Acute 2 PFSH: Medical History Type 1 diabetes Surgical History No significant past surgical history Family History (Updated 05/11/23 @ 22:08 by Rashid Moe MD) Other Depression Social History Smoking and tobacco/nicotine status: never used tobacco/nicotine Alcohol intake: never Lives independently: Yes Household members: other Details: Marnie Current occupational status: employed Vitals/I&O/Wt Last Vital Signs Temp 98.2 F 06/08/23 23:29 Pulse 122 H 06/09/23 01:30 Resp 21 H 06/09/23 01:30 BP 151/62 06/09/23 01:30 Pulse Ox 96 06/09/23 01:30 O2 Del Method Room Air 06/09/23 01:30 06/08/23 06/08/23 06/09/23 14:59 22:59 06:59 Intake Total 1000 / 1000 Balance 1000 / 1000 Weight last 48 hrs Weight 71.577 kg Weight 72.575 kg Physical Exam 2 Narrative: Accompanied by his life partner. Const: COMMON NORMALS: patient oriented x3 and alert GENERAL APPEARANCE: c ooperative ORIENTATION/CONSCIOUSNESS: Yes awake HENMT: COMMON NORMALS: oropharynx normal Neck/C-Spine: COMMON NORMALS: no JVD Resp: COMMON NORMALS: normal respiratory effort and clear to auscultation bilaterally AUSCULTATION: clear to auscultation bilaterally Cardio: COMMON NORMALS: no JVD, regular rhythm, S1 normal heart sound present, S2 normal heart sound present and No murmurs present (Cardio) RHYTHM: regular rhythm HEART SOUNDS: S1 normal heart sound present and S2 normal heart sound present GI: COMMON NORMALS: Normal to inspection, nondistended, normoactive bowel sounds present, Soft to palpation and non-tender PALPATION: Yes Soft to palpation Extremity: COMMON NORMALS: no joint enlargement and no pedal edema Neuro: COMMON NORMALS: patient oriented x3 and moves all extremities S ENSORIUM/ORIENTATION: Yes alert Skin: COMMON NORMALS: no rashes or lesions noted GENERAL SKIN EXAM: no rashes or lesions noted Data 06/09/23 00:03 06/09/23 00:03 A&P Assessment and plan (1) Diabetic ketoacidosis: Reviewed vitals, CBC, electrolytes, anion gap, bicarb, creatinine, BUN, liver parameters, lipase, UA, rapid COVID, rapid flu, serum ketones, ER physician note, discussed with ER physician. He received 1 L bolus of fluid. Insulin drip. Continue normal saline. At risk of electrolyte imbalance, follow-up chemistry. Check magnesium, phosphorus. Continue to monitor glucose, at risk of hyper/hypoglycemia with treatment. DVT prophylaxis, PPI prophylaxis. Malaise, high leukocytosis. For now empirically cover with antibiotic with Zosyn, please reassess condition, requesting follow-up CBC, continue to monitor vitals. Requesting chest x-ray and abdominal x-ray series. Qualifiers: Diabetes mellitus complication detail: without coma Diabetes mellitus type: type 1 Qualified Code(s): E10.10 - Type 1 diabetes mellitus with ketoacidosis without coma (2) Type 1 diabetes: Previous insulin pump, switched recently back to subcutaneous insulin. Treat DKA. Will need follow-up with endocrinology with recurrent DKA. (3) Intractable nausea and vomiting: DKA. Has had malaise, has been exposed to some people have been ill. Will check COVID-19 PCR panel. Possible cannabis hyperemesis syndrome, discussed with life partner to be aware of this possibility as well. (4) Cannabis hyperemesis syndrome concurrent with and due to cannabis abuse: (5) Strep throat: Completed partial course for strep throat a week ago. Check rapid strep. (6) Leukocytosis: High leukocytosis, recent strep throat which she partially completed treatment for with Augmentin, took about 3 days worth of the 7-day course. No diarrhea. Monitor for diarrhea, risk of C. difficile. For now empirically covered with Zosyn given high leukocytosis, malaise, DKA. Reassess, de-escalate antibiotic depending on condition. Check COVID PCR panel. (7) Transaminitis: New transaminitis, suspect secondary to hypovolemia, DKA. T. bili, alk phos WNL. No right upper quadrant tenderness. Follow-up liver parameters with history. (8) MONICA (acute kidney injury): MONICA on likely noted 1.3. BUN 20. Suspected prerenal with hypovolemia complication of DKA. Fluid resuscitation as above. Reassess renal function. Attestations 2 Medical Necessity Statement*: Admission over 2 midnights anticipated for assessment of management of DKA. Coding Level of Care Code Critical Care >/= 30 minutes Critical care time (in minutes): 40 The high probability of a clinically significant, sudden or life threatening deterioration, as referenced in this documentation, required my full and direct attention, intervention and personal management. The critical care time shown is in addition to time spent performing any reported separately billable procedures and includes the following: [x] Data and vital sign review and interpretation [x ] Patient assessment, examination and intervention [x] Medication orders and management [x] Patient/Family updates as able [x] Care Coordination and Documentation. Diagnoses Diabetic ketoacidosis E10.10 Diabetes mellitus complication detail: without coma Diabetes mellitus type: type 1 Type 1 diabetes E10.9 Intractable nausea and vomiting R11.2 Cannabis hyperemesis syndrome concurrent with and due to cannabis abuse F12.188 Strep throat J02.0 Leukocytosis D72.829 Transaminitis R74.01 MONICA (acute kidney injury) N17.9
[2023-06-09 03:24] LABS: Rapid Strep A Test Negative (Negative)
[2023-06-09] MEDS: pantoprazole 40 mg SDV IVP (03:40)
[2023-06-09 04:33] LABS: Glucose Point of Care 440 mg/dL (70-110)
[2023-06-09 04:33] LABS: Glucose Point of Care 561 mg/dL (70-110)
[2023-06-09 05:04] LABS: Adenovirus Not Detected (NOT DETECT); Chlamydia Pneumoniae Not Detected (NOT DETECT); Coronavirus 229E,HKU1,NL63,OC4 Not Detected (NOT DETECT); Human Metapneumovirus Not Detected (NOT DETECT); Human Rhinovirus/Enterovirus Not Detected (NOT DETECT); Influenza A Not Detected (NOT DETECT); Influenza A H1 Not Detected (NOT DETECT); Influenza A H1-2009 Not Detected (NOT DETECT); Influenza A H3 Not Detected (NOT DETECT); Influenza B Not Detected (NOT DETECT); Mycoplasma Pneumoniae Not Detected (NOT DETECT); Parainfluenza Virus Type 1 Not Detected (NOT DETECT); Parainfluenza Virus Type 2 Not Detected (NOT DETECT); Parainfluenza Virus Type 3 Not Detected (NOT DETECT); Parainfluenza Virus Type 4 Not Detected (NOT DETECT); Respiratory Syncytial Virus A Not Detected (NOT DETECT); Respiratory Syncytial Virus B Not Detected (NOT DETECT); SARS-COV-2 Not Detected (NOT DETECT)
[2023-06-09 05:20] LABS: Glucose Point of Care 350 mg/dL (70-110)
[2023-06-09 05:56] LABS: Basophils # 0.1 10^3/uL (0.0-0.1); Basophils % 0.2 %; Hematocrit 40.5 % (37-53); Lymphocytes # 1.1 10^3/uL (1.5-6.5); Lymphocytes % 3.7 %; Mean Corpuscular HGB Conc 32.8 g/dL (30-55); Mean Corpuscular Hemoglobin 29.2 pg (27-33); Mean Corpuscular Volume 88.8 fl (82-101); Mean Platelet Volume 10.5 fL (7.4-10.4); Monocytes # 2.4 10^3/uL (0.2-0.9); Monocytes % 8.2 %; Neutrophils # 24.75 10^3/uL (1.8-8.0); Neutrophils % 86.6 %; Nucleated Red Blood Cells % 0 %; Platelet Count 339 10^3/cmm (157-399); Red Blood Count 4.56 10^6/uL (3.85-5.65); Red Cell Distribution Width 13.1 % (12.1-15.1); White Blood Count 28.61 10^3/uL (4.5-13.0)
[2023-06-09 06:21] LABS: Alanine Aminotransferase 45 U/L (0-41); Albumin Level 4.2 g/dL (3.5-5.2); Alkaline Phosphatase 79 U/L (40-130); Anion Gap 28.4 (5-19); Aspartate Amino Transferase 38 U/L (0-40); Blood Urea Nitrogen 20 mg/dL (6-20); Calcium 8.6 mg/dL (8.5-10.5); Carbon Dioxide 12 mmol/L (22-29); Chloride 96 mmol/L (98-107); Globulin 2.5 g/dL (1.3-4.6); Glomerular Filtration Rate 64.6 mL/min (90-130); Glucose 387 mg/dL (65-115); Osmolality Calculated 293 mOsm/kg (285-295); Phosphorus 3.1 mg/dL (2.5-4.5); Potassium 4.4 mmol/L (3.5-5.1); Sodium 132 mmol/L (136-145); Total Bilirubin 0.4 mg/dL (0.15-1.2); Total Protein 6.7 g/dL (6.6-8.7)
--- OUTSIDE RECORDS SUMMARY | 2023-06-09 06:28 | XMS_ITS | Patient Health Record ---
Author Name Unknown Organization [facility] Address [address] [place] [address] Care Team Providers Care Entry Level Manager Name Role Phone Roshni Francisco Primary Care Provider Abby Falcon Unavailable [phone] ROSHNI FRANCISCO Unavailable Unavailable Raquel Shay Unavailable [phone] ALLERGIES Allergen (clinical drug ingredient) Drug/Non Drug Allergy documented on EMR Reaction Allergy Type Onset Date Status codeine Codeine Sulfate Unknown Drug Allergy A ctive RESULTS Component Value Reference Range Notes Hemoglobin A1C Reviewed date:03/29/2023 11:19:40 AM Interpretation: Performing Lab: Notes/Report: Hemoglobin A1C 7.0 4.2 - 6.3 % Mean Blood Sugar (Estimated) Strep Screen A 25413 Reviewed date:06/25/2022 02:43:07 PM Interpretation: Performing Lab: Notes/Report: X Strep Screen A positive Rapid Strep (Strep A) Reviewed date:10/02/2022 04:45:27 PM Interpretation: Performing Lab: Notes/Report: Strep positive RSV PCR--[id number] Reviewed date:01/16/2023 07:42:10 AM Interpretation: Performing Lab: Notes/Report: RSV PCR negative COVID 19 PCR--[id number] Reviewed date:05/22/2023 08:35:36 AM Interpretation: Performing Lab: Notes/Report: COVID 19 PCR negative Method of COVID 19 Fact sheet given Influenza A/B PCR-- [id number] Reviewed date:05/22/2023 08:35:15 AM Interpretation: Performing Lab: Notes/Report: X Influenza B PCR negative Influenza A PCR negative Strep Screen A 08774 Reviewed date:05/22/2023 08:34:46 AM Interpretation: Performing Lab: Notes/Report: X Strep Screen A positive REASON FOR REFERRAL Reason Depression, anxiety Diagnosis 1 Anxiety (F41.9) Diagnosis 2 Depression (F32.9) Referral Organization [facility] Referring Provider First Name Roshni Referring Provider Last Name [facility] Referring Provider Speciality Nurse Oksana sheikh Referred Provider Specialty Counselor General Notes Miranda Simmons 08/02 04:00:22 PM >faxed to Danya Andrews per patient Iris frank Amy 11/21/2022 03:56:51 PM >Patient did not keep appt Referral Priority Routine Reason DM Diagnosis 1 Type 1 diabetes natasha itus with hypoglycemia without coma (E10.649) Referral Organization [facility] Referring Provider First Name Roshni Referring Provider Last Name [facility] Referring Provider Speciality Nurse Oksana sheikh Referred Provider Jose Gerard Referred Provider Specialty Endocrinolog y, Diabetes and Metabolism General Notes Miranda Simmons 05/02 03:56:45 PM >faxed Referral Priority Routine Reason Seizures Diagnosis 1 Seizures (R56.9) Referral Organization [facility] Referring Provider First Name Roshni Referring Provider Last Name [facility] Referring Provider Speciality Nurse Oksana sheikh [facility]erred Provider Specialty Neurology General Notes Miranda Simmons 05/02 04:09:37 PM >faxHans melendez Shyla 05/08/2023 04:18:04 PM >Appt 05/20/2023 @ 1:30 Referral Priority Routine Referral Appointment Date 05/20/2023 MEDICATIONS Medication SIG (Take, Route, Frequency, Duration) Notes Start Date End Date Status Montelukast Sodium 10 MG 1 tablet Orally Once a day Not-Taking Insulin Pump Accessories Medtronic Not-Taking HumaLOG KwikPen 200 UNIT/ML Inject up to 75 units Subcutaneous Daily per Omnipod for 30 days 12/17/2022 Not-Taking Guardian Link 3 Transmitter Not-Taking ZyrTEC 10 MG 1 tablet Orally Once a day Not-Taking carBAMazepine 200 MG 1 tablet Orally Twice a day Active Accu-Chek Guide - as directed In Vitro Three times daily for 30 days 12/17/2022 Not-Taking Albuterol Sulfate HFA 108 (90 Base) MCG/ACT INHALE 2 PUFFS INTO LUNGS FOUR TIMES DAILY NEEDED for 25 Active Pantoprazole Sodium 40 MG 1 tablet Orally Once a day for 30 days 05/08/2023 Active Ondansetron 8 MG DISSOLVE ONE TABLET in MOUTH EVERY 6 HOURS NEEDED Active Lantus SoloStar 100 UNIT/ML Inject 30 Units Subcutaneous Once daily at noon for 30 days 05/02/2023 Active Contour Next Test - as directed In Vitro Daily for 90 days 04/11/2022 Not-Taking Contour Next Test - as directed In Vitro As needed Not-Taking Citalopram Hydrobromide 40 MG 1 tablet Orally Once a day for 30 day(s) 05/09/2022 Not-Taking busPIRone HCl 10 MG 1/2 to1 tablet Orally Twice a day as needed for 30 days Not-Taking FLUoxetine HCl 10 MG 1 tablet Orally Onc e a day for 30 days 05/29/2023 Active Dexcom G6 Transmitter - as directed Use with Dexcom G6 sensor Change every 90 days for 90 days 07/17/2022 Active Dexcom G6 Sensor - as directed SQ Change every 10 days for 90 days 07/17/2022 Active Lancets - as directed SQ Daily for 90 days 07/20/2022 Active Ketone Test - as directed In Vitro ad needed for 365 days 12/17/2022 12/15/2028 Active HumaLOG 100 UNIT/ML as directed Injection sliding scale at meal times Active Fluticasone Propionate 50 MCG/ACT instill ONE SPRAY IN EACH NOSTRIL ONCE DAILY (60 DAY supply) for 21 Active SOCIAL HISTORY Tobacco Use: Social History Observation [...] diabetes mellitus with hyperglycemia (E10.65) Active confirmed 087556567249367 Problem Type 1 diabetes mellitus with other specified complication (E10.69) Active confirmed 30050148 Problem Anxiety (F41.9) Active confirmed 788019 02 Problem GERD without esophagitis (K21.9) Active confirmed 335046950 Problem Depression with anxiety (F41.8) Active confirmed Mixed anxiet y and depressive disorder (083948129) Problem Insulin pump in place (Z96.41) Active confirmed 766632092 Problem Depression (F32.9) Active confirmed Depression (35955243) Problem Asthma exacerbation (J45.901) Active confirmed Exacerbation of asthma (388945065) Problem Hypoglycemia associated with diabetes (E11.649) Active confirmed 138847262 Problem Insulin long-term use (Z79.4) Active confirmed 923871445 Problem Insulin pump titration (Z46.81) Active confirmed 978874027 Problem Insulin pump fitting or adjustment (Z46.81) Active confirmed 707295062 Problem Insulin pump status (Z96.41) Active confirmed 838543537 Problem Diabetic hypoglycemia (E11.649) Active confirmed 698080433 VITAL SIGNS Heart Rate 62 /min 06/05/2023 Temperature 97.5 degrees Fahrenheit 05/29/2023 Respiratory Rate 20 /min 05/29/2023 Height-cm 177.8 cm 06/05/2023 Oximetry 99 % 06/05/2023 Blood pressure diastolic 52 mm Hg 06/05/2023 Weight-kg 76.2 kg 06/05/2023 BMI Percentile 65.82 % 05/08/2023 Height 70 in 06/05/2023 Blood pressure systolic 112 mm Hg 06/05/2023 Weight 168 lbs 06/05/2023 BMI 24.1 kg/m2 06/05/2023 Encounters Encounter Location Date Provider Diagnosis [facility] [address] [place] [address] 06/25/2022 Roshni Francisco Strep pharyngitis J02.0 and Nausea R11.0 [facility] [address] [facility] [address] [place] [address] 07/02/2022 Roshni Francisco Strep pharyngitis J02.0 [facility] [address] [place] [address] 07/11/2022 Roshni Francisco Type 1 diabetes mellitus with hyperglycemia E10.65 ; Anxiety F41.9 and Insulin long-term use Z79.4 [facility] [address] [place] [address] 07/13/2022 Abby Falcon [facility] [address] [place] [address] 07/17/2022 Abby Falcon Type 1 diabetes mellitus with hyperglycemia E10.65 ; Insulin pump in place Z96.41 ; Insulin pump titration Z46.81 and Uses self-applied continuous glucose monitoring device Z97.8 [facility] [address] [place] [address] 07/17/2022 Abby Falcon [facility] [address] [place] [address] 07/18/2022 Abby Falcon Type 1 diabetes mellitus with hyperglycemia E10.65 [facility] [address] [place] [address] 07/31/2022 Roshni Maryam Anxiety F41.9 and Depression F32.9 [facility] [address] [place] [address] 08/02/2022 Abby Falcon Type 1 diabetes mellitus with hyperglycemia E10.65 [facility] [address] [place] [address] 08/14/2022 Abby Falcon Type 1 diabetes mellitus with hyperglycemia E10.65 ; Insulin pump in place Z96.41 ; Insulin pump fitting or adjustment Z46.81 and Uses self-applied continuous glucose monitoring device Z97.8 [facility] [address] [place] [address] 08/23/2022 Roshni Francisco Asthma exacerbation J45.901 [facility] [place] [address] [place] [address] 08/29/2022 Abby Falcon [facility] [address] [place] [address] 10/02/2022 Raquel Shay Sore throat J02.9 ; Strep pharyngitis J02.0 ; Skin pustule L08.9 ; Type 1 diabetes mellitus with hyperglycemia E10.65 ; Insulin long-term use Z79.4 and Insulin pump in place Z96.41 [facility] [address] [place] [address] 10/10/2022 [facility] [place] [address] [place] [address] 11/05/2022 Roshni Francisco [facility] [address] [place] [address] 12/17/2022 Abby Falcon Type 1 diabetes mellitus with hyperglycemia E10.65 ; Insulin pump fitting or adjustment Z46.81 ; shelter (current) use of insulin Z79.4 ; Insulin pump in place Z96.41 and Uses self-applied continuous glucose monitoring device Z97.8 [facility] [address] [place] [address] 12/17/2022 [facility] [place] [address] [address] 12/19/2022 Abby Falcon [facility] [address] [place] [address] 01/15/2023 Roshni Francisco Asthma exacerbation J45.901 [facility] [address] [place] [address] 01/17/2023 [facility] [address] [place] [address] 01/17/2023 Abby Falcon Type 1 diabetes mellitus with hyperglycemia E10.65 ; Insulin pump fitting or adjustment Z46.81 ; Insulin long-term use Z79.4 ; Insulin pump in place Z96.41 and Uses self-applied continuous glucose monitoring device Z97.8 [facility] [address] [place] [address] 03/06/2023 Abby [facility] [address] [place] [address] 03/13/2023 [facility] [address] [place] [address] 03/20/2023 Abby Falcon Type 1 diabetes mellitus with hyperglycemia E10.65 ; Type 1 diabetes mellitus with hypoglycemia without coma E10.649 ; Insulin long-term use Z79.4 ; Insulin pump in place Z96.41 and Uses self-applied continuous glucose monitoring device Z97.8 [facility] [address] [place] [address] 04/01/2023 [facility] [address] [place] [address] 04/03/2023 [facility] [address] [place] [address] 04/05/2023 Abby Falcon Type 1 diabetes mellitus with hyperglycemia E10.65 [facility] [address] [facility] [address] [place] [address] 04/29/2023 Roshni Francisco [facility] [address] [place] [address] 04/29/2023 [facility] [address] [address] 05/01/2023 Roshni Francisco Type 1 diabetes mellitus with hypoglycemia without coma E10.649 ; GERD without esophagitis K21.9 ; Nausea R11.0 ; Seizures R56.9 ; Insulin long-term use Z79.4 and Insulin pump in place Z96.41 [facility] [place] [address] [place] [address] 05/01/2023 Abby Falcon Type 1 diabetes mellitus with other specified complication E10.69 ; Type 1 diabetes mellitus with hypoglycemia without coma E10.649 ; Insulin long-term use Z79.4 ; Insulin pump in place Z96.41 and Uses self-applied continuous glucose monitoring device Z97.8 [facility] [address] [address] 05/08/2023 Roshni Francisco GERD without esophagitis K21.9 ; Hyperglycemia due to type 1 diabetes mellitus E10.65 and Insulin long-term use Z79.4 [facility] [address] [address] 05/21/2023 Roshni Francisco Fever R50.9 ; Strep pharyngitis J02.0 ; Body aches R52 and Nausea & vomiting R11.2 [facility] [address] [address] 05/22/2023 Roshni Francisco [facility] [address] [address] 05/29/2023 Roshni Francisco Depression with anxiety F41.8 [facility] [place] [address] [place] [address] 06/05/2023 Abby Falcon ASSESSMENTS Encounter Date Diagnosis Assessment Notes Treatment Notes Treatment Clinical Notes 06/25/2022 Nausea (ICD-10 - R11.0) 06/25/2022 Strep pharyngitis (ICD-10 - J02.0) Increase fluids, take medication as directed. RTC if no improvement with treatment. 07/02/2022 Strep pharyngitis (ICD-10 - J02.0) Will change antibiotic to Zithromax. RTC with any concerns. 07/18/2022 Type 1 diabetes mellitus with hyperglycemia (ICD-10 - E10.65) 07/31/2022 Anxiety (ICD-10 - F41.9) 07/31/2022 Depression (ICD-10 - F32.9) 10/02/2022 Sore throat (ICD-10 - J02.9) rapid strep positive 10/02/2022 Strep pharyngitis (ICD-10 - J02.0) rocephin 1 gram amoxicillin medrol dose pack 03/20/2023 Type 1 diabetes mellitus with hypoglycemia [...] and he will follow up here at [facility] in one month for any adjustments or PRN. All questions answered and concerns addressed. Total time spent with patient is 38 minutes 05/01/2023 Type 1 diabetes mellitus with hypoglycemia without coma (ICD-10 - E10.649) Recheck in 3 months. 05/01/2023 GERD without esophagitis (ICD-10 - K21.9) 05/21/2023 Fever (ICD-10 - R50.9) 05/21/2023 Strep pharyngitis (ICD-10 - J02.0) 05/29/2023 Depression with anxiety (ICD-10 - F41.8) Recheck in 3-4 weeks. 04/05/2023 Type 1 diabetes mellitus with hyperglycemia (ICD-10 - E10.65) 01/17/2023 Type 1 diabetes mellitus with hyperglycemia (ICD-10 - E10.65) The patient is using an Omnipod5 insulin pump and DexCTMG G6 continuous glucose monitor. He is using [...] and he will follow up here at [facility] in one month for any adjustments or PRN. All questions answered and concerns addressed. Total time spent with patient is 45 minutes 01/17/2023 Insulin pump fitting or adjustment (ICD-10 - Z46.81) 01/15/2023 Asthma exacerbation (ICD-10 - J45.901) Increase fluids, take medication as directed. RTC if no improvement with treatment. 12/17/2022 Type 1 diabetes mellitus with hyperglycemia [...] to the Total Daily Basal: MN-0900=1.1 Units, 7806-6247=1.4 Units, 2200-MN=1.2 and Total is 31.15 Units. [...] and he will follow up here at [facility] in one month for any adjustments or PRN. All questions answered and concerns addressed. Total time spent with patient is 45 minutes 12/17/2022 Insulin pump fitting or adjustment (ICD-10 - Z46.81) 08/23/2022 Asthma exacerbation (ICD-10 - J45.901) RTC if no improvement with treatment. 08/14/2022 Type 1 diabetes mellitus with hyperglycemia (ICD-10 - E10.65) The patient is started on use of the Omnipod5 insulin pump with the Dexcom G6 continuous glucose monitor. Instructions on use of the PDM and Peerius phone radha as well as how to fill and place the Pod and take bolus doses. The PDM is set with the following settings: Total Daily Basal: MN-0900=0.9 Units, 1604-2614=1.2 Units, 2200-MN=1.0 and Total is 25.7 Units. [...] and he will follow up here at [facility] in one month for any adjustments or PRN. All questions answered and concerns addressed. Total time spent with patient is 90 minutes 08/14/[address] (ICD-10 - Z96.41) 08/02/2022 Type 1 diabetes mellitus with hyperglycemia (ICD-10 - E10.65) 07/17/2022 Type 1 diabetes mellitus with hyperglycemia [...] to the Total Daily Basal: MN-0900=0.9 Units, 1165-0417=1.2 Units, 2200-MN=1.0 and Total is 25.7 Units. [...] and he will follow up here at [facility] in one month for any adjustments or PRN. All questions answered and concerns addressed. Total time spent with patient is 45 minutes 07/17/[address] (ICD-10 - Z96.41) 07/11/2022 Type 1 diabetes mellitus with hyperglycemia (ICD-10 - E10.65) Keep apt with [facility] as scheduled. Recheck here 3 months and PRN. 07/11/2022 Anxiety (ICD-10 - F41.9) Recheck 3 weeks. 05/08/2023 GERD without esophagitis (ICD-10 - K21.9) [...] pending. He will follow up here at [facility] in one month. All questions answered and concerns addressed. Total time spent with patient is 35 minutes 05/01/2023 Insulin long-term use (ICD-10 - Z79.4) 07/17/2022 Insulin pump titration (ICD-10 - Z46.81) 05/08/2023 Insulin long-term use (ICD-10 - Z79.4) 07/11/2022 Insulin long-term use (ICD-10 - Z79.4) 01/17/2023 Insulin long-term use (ICD-10 - Z79.4) 05/21/2023 Body aches (ICD-10 - R52) Toradol injection given today. 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 05/01/2023 Seizures (ICD-10 - R56.9) 12/17/[address] (ICD-10 - Z96.41) 01/17/[address] (ICD-10 - Z96.41) 08/14/2022 Uses self-applied continuous glucose monitoring device (ICD-10 - Z97.8) 07/17/2022 Uses self-applied continuous glucose monitoring device (ICD-10 - Z97.8) 05/01/[address] (ICD-10 - Z96.41) 05/01/2023 Uses self-applied continuous glucose monitoring device (ICD-10 - Z97.8) 01/17/2023 Uses self-applied continuous glucose monitoring device (ICD-10 - Z97.8) 12/17/2022 Uses self-applied continuous glucose monitoring device (ICD-10 - Z97.8) 05/01/2023 Insulin long-term use (ICD-10 - Z79.4) 03/20/2023 Uses self-applied continuous glucose monitoring device [...] Test Test Name Order Date Hemoglobin A1c [id number] 04/11/2022 Next Appt Details Provider Name:Abby kwon, 06/20/2023 04:00:00 PM, [address], [place], [address], Provider Name:Roshni Millicent Fregosokristopher rton, 06/26/2023 09:00:00 AM, [address], [place], [address], Provider Name:Abbyjairo kwon, 08/14/2023 04:00:00 PM, [address], [place], [address], Insurance Providers Payer Name Payer Address Payer Phone Subscriber Number Group Number Insured Name Patient Relationship to Insured Coverage Start Date Coverage End Date [employer] [address] [address] [place] [address] [id number] [employer] Child - Insured has Financial Responsibility MEDICATIONS ADMINISTERED Medication Instructions Date of Administration Dosage Notes Ketorolac Tromethamine 05/21/2023 60 mg ms [id number] Patient tolerated well. Rocephin 10/02/2022 1 g [facility] [phone] -11 pt tolerated well/instructed to wait 20 min Ondansetron HCl 05/21/2023 4 mg [id number] tient tolerated well. MEDICAL (GENERAL) HISTORY Medical History History ICD Code type I diabetes seizures Hospitalization History Reason Date(Month/Year) [facility] ER-hypoglycemia 04/2023 hypoglycemic seizure 03/13/23 D[facility] 12/11/2022 [facility] ER- diabetes 07-10-22
[2023-06-09 07:33] LABS: Glucose Point of Care 200 mg/dL (70-110)
[2023-06-09 07:33] LABS: Glucose Point of Care 273 mg/dL (70-110)
[2023-06-09] MEDS: dextrose 5%-ns + KCl 40 40 MEQ/1,000 ML BAG 75 MEQ IV (08:10)
[2023-06-09 08:28] LABS: Glucose Point of Care 182 mg/dL (70-110)
[2023-06-09] MEDS: enoxaparin 40 mg/0.4 mL Syringe SUBCUT (09:34)
[2023-06-09] MEDS: sodium bicarbonate 650 mg Tablet PO ×2 (09:34→15:40)
--- NOTE | 2023-06-09 09:40 | P.EN_ITS ---
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
[2023-06-09 10:53] LABS: Glucose Point of Care 206 mg/dL (70-110)
[2023-06-09 10:53] LABS: Glucose Point of Care 242 mg/dL (70-110)
[2023-06-09 11:19] LABS: Anion Gap 22.9 (5-19); Blood Urea Nitrogen 17 mg/dL (6-20); Calcium 8.2 mg/dL (8.5-10.5); Carbon Dioxide 16 mmol/L (22-29); Chloride 101 mmol/L (98-107); Glomerular Filtration Rate 77.2 mL/min (90-130); Glucose 230 mg/dL (65-115); Osmolality Calculated 289 mOsm/kg (285-295); Potassium 4.9 mmol/L (3.5-5.1); Sodium 135 mmol/L (136-145)
[2023-06-09 11:40] LABS: Glucose Point of Care 232 mg/dL (70-110)
[2023-06-09 12:52] LABS: Glucose Point of Care 242 mg/dL (70-110)
[2023-06-09 13:43] LABS: Glucose Point of Care 221 mg/dL (70-110)
[2023-06-09 14:40] LABS: Glucose Point of Care 222 mg/dL (70-110)
[2023-06-09 15:25] LABS: Anion Gap 15.3 (5-19); Blood Urea Nitrogen 16 mg/dL (6-20); Calcium 8.2 mg/dL (8.5-10.5); Carbon Dioxide 21 mmol/L (22-29); Chloride 101 mmol/L (98-107); Glomerular Filtration Rate 77.2 mL/min (90-130); Glucose 246 mg/dL (65-115); Osmolality Calculated 285 mOsm/kg (285-295); Potassium 4.3 mmol/L (3.5-5.1); Sodium 133 mmol/L (136-145)
[2023-06-09 15:40] LABS: Glucose Point of Care 233 mg/dL (70-110)
--- NOTE | 2023-06-09 16:05 | PM.DCS ---
Discharge Providers Date of Admission: 06/09/23 01:38 Date of Discharge: June 09, 2023 Attending Provider at Admission: Evan Campos Attending Provider at Discharge: Carmelina Kirk MD Primary Care Provider: Raquel Shay APN Diagnoses at Discharge Discharge Diagnosis (1) Diabetic ketoacidosis: Status: Acute Qualifiers: Diabetes mellitus complication detail: without coma Diabetes mellitus type: type 1 Qualified Code(s): E10.10 - Type 1 diabetes mellitus with ketoacidosis without coma (2) Type 1 diabetes: Status: Acute (3) Intractable nausea and vomiting: Status: Acute (4) Cannabis hyperemesis syndrome concurrent with and due to cannabis abuse: Status: Acute (5) Strep throat: Status: Acute (6) Leukocytosis: Status: Acute (7) Transaminitis: Status: Acute (8) MONICA (acute kidney injury): Status: Acute Reason for Visit Reason for Visit: n/v, high bs Hospital Course Hospital Course 18 male who recently had admission for strep throat treatment along DKA present to the hospital for recurrent nausea vomiting he was diagnosed with DKA request 24 hours to correct his anion gap along metabolic acidosis, will give him 40 units of Lantus along sliding scale patient already has an drug safety physician at [place], he is tolerating diet, hemodynamically stable, no active nausea or vomiting. Patient is wanting to go home he does have supply of insulin at home. He was counseled to use 40 units of Lantus for now, respiratory panel is negative Checks abdomen x-ray is negative as well. He remained afebrile. Physical Exam Narrative: GCS 15 nonfocal neuroexam Signs of dehydration improving No active nausea vomiting Pleasant cooperative abdomen soft Discharge Data Studies Completed and Pending Completed Studies During Hospitalization Category Date Time Status XR acute abdomen series [id number] Routine Exams 06/09/23 02:31 Completed Pending at discharge Category Date Time Status BMP [Basic Metabolic Panel] Q4H Lab 06/09/23 18:27 Ordered BMP [Basic Metabolic Panel] Q4H Lab 06/09/23 22:27 Ordered Complete Blood Count w/Auto AM LABS Lab 06/10/23 04:00 Ordered Complete Blood Count w/Auto AM LABS Lab 06/11/23 04:00 Ordered Complete Blood Count w/Auto AM LABS Lab 06/12/23 04:00 Ordered Comprehensive Metabolic Panel AM LABS Lab 06/10/23 04:00 Ordered Comprehensive Metabolic Panel AM LABS Lab 06/11/23 04:00 Ordered Comprehensive Metabolic Panel AM LABS Lab 06/12/23 04:00 Ordered Magnesium AM LABS Lab 06/10/23 04:00 Ordered Phosphorus AM LABS Lab 06/10/23 04:00 Ordered Streptococcus Culture Group A Routine Lab 06/09/23 02:50 Received Radiology Impressions Chest/Abdomen X-ray 06/09/23 02:31 IMPRESSION: No acute findings. Laboratory Results WBC 28.61 10^3/uL (4.5-13.0) H 06/09/23 05:03 RBC 4.56 10^6/uL (3.85-5.65) 06/09/23 05:03 Hgb 13.30 g/dL (13.2-15.6) 06/09/23 05:03 Hct 40.5 % (37-53) 06/09/23 05:03 MCV 88.8 fl (82-101) 06/09/23 05:03 MCH 29.2 pg (27-33) 06/09/23 05:03 MCHC 32.8 g/dL (30-55) 06/09/23 05:03 RDW 13.1 % (12.1-15.1) 06/09/23 05:03 Plt Count 339 10^3/cmm (157-399) 06/09/23 05:03 MPV 10.5 fL (7.4-10.4) H 06/09/23 05:03 Neut % (Auto) 86.6 % 06/09/23 05:03 Lymph % (Auto) 3.7 % 06/09/23 05:03 Hinds % (Auto) 8.2 % 06/09/23 05:03 Eos % (Auto) 0.0 % 06/09/23 05:03 Baso % (Auto) 0.2 % 06/09/23 05:03 Neut # (Auto) 24.75 10^3/uL (1.8-8.0) H 06/09/23 05:03 Lymph # (Auto) 1.1 10^3/uL (1.5-6.5) L 06/09/23 05:03 Hinds # (Auto) 2.4 10^3/uL (0.2-0.9) H 06/09/23 05:03 Eos # (Auto) 0.0 10^3/uL (0.0-0.8) 06/09/23 05:03 Baso # (Auto) 0.1 10^3/uL (0.0-0.1) 06/09/23 05:03 Nucleated RBC % (auto) 0 % 06/09/23 05:03 Nucleated RBCs # 0.0 /100WBC 06/09/23 05:03 Specimen Type Arterial 06/08/23 00:09 Sample Site Brachial, right 06/08/23 00:09 ABG pH 7.24 (7.35-7.45) L 06/08/23 00:09 ABG pCO2 23.8 mmHg (35-45) L 06/08/23 00:09 ABG pO2 99.7 mmHg (80.0-100.0) 06/08/23 00:09 ABG HCO3 10.2 mmol/L (22-26) L 06/08/23 00:09 ABG Base Excess -15.2 mmol/L (-2.0-2.0) L 06/08/23 00:09 Steven Test N/a 06/08/23 00:09 Hematocrit 46.6 % (42-52) 06/08/23 00:09 O2 Delivery Device Room air 06/08/23 00:09 Marketing Pr Intern ID [email or web address] 06/08/23 00:09 Sodium 133 mmol/L (136-145) L 06/09/23 14:30 Potassium 4.3 mmol/L (3.5-5.1) 06/09/23 14:30 Chloride 101 mmol/L (98-107) 06/09/23 14:30 Carbon Dioxide 21 mmol/L (22-29) L 06/09/23 14:30 Anion Gap 15.3 (5-19) 06/09/23 14:30 BUN 16 mg/dL (6-20) 06/09/23 14:30 Creatinine 1.2 mg/dL (0.7-1.2) 06/09/23 14:30 GFR Calculation 77.2 mL/min (90-130) L 06/09/23 14:30 Glucose 246 mg/dL (65-115) H 06/09/23 14:30 POC Glucose 233 mg/dL (70-110) H 06/09/23 15:33 Calculated Osmolality 285 mOsm/kg (285-295) 06/09/23 14:30 Calcium 8.2 mg/dL (8.5-10.5) L 06/09/23 14:30 Phosphorus 3.1 mg/dL (2.5-4.5) 06/09/23 05:03 Magnesium 2.0 mg/dL (1.7-2.3) 06/09/23 05:03 Total Bilirubin 0.4 mg/dL (0.15-1.2) 06/09/23 05:03 AST 38 U/L (0-40) 06/09/23 05:03 ALT 45 U/L (0-41) H 06/09/23 05:03 Alkaline Phosphatase 79 U/L (40-130) 06/09/23 05:03 Total Protein 6.7 g/dL (6.6-8.7) 06/09/23 05:03 Albumin 4.2 g/dL (3.5-5.2) 06/09/23 05:03 Globulin 2.5 g/dL (1.3-4.6) 06/09/23 05:03 Lipase 29 U/L (13-60) 06/09/23 00:03 Urine Color Colorless (Yellow) 06/09/23 00:06 Urine Appearance Clear (CLEAR) 06/09/23 00:06 Urine pH 5 (5-7) 06/09/23 00:06 Ur Specific [place] 1.015 (1.005-1.030) 06/09/23 00:06 Urine Protein Neg (Negative) 06/09/23 00:06 Urine Glucose (UA) 4+ (Normal) H 06/09/23 00:06 Urine Ketones 2+ (Negative) H 06/09/23 00:06 Urine Blood Neg (Negative) 06/09/23 00:06 Urine Nitrate Negative (Negative) 06/09/23 00:06 Urine Bilirubin Neg (Negative) 06/09/23 00:06 Urine Urobilinogen Norm mg/dL (Negative) 06/09/23 00:06 Ur Leukocyte Esterase Negative (Negative) 06/09/23 00:06 Serum Ketones Negative (Negative) 06/09/23 00:03 Coronavirus 229E (PCR) Not detected (NOT DETECT) 06/09/23 02:50 SARS-CoV-2 (PCR) Not detected (NOT DETECT) 06/09/23 02:50 Group A Strep Rapid Negative (Negative) 06/09/23 02:50 Vitals Last Vital Signs Temp 98.6 F 06/09/23 12:09 Pulse 99 06/09/23 16:00 Resp 27 H 06/09/23 16:00 BP 103/43 06/09/23 16:00 Pulse Ox 97 06/09/23 16:00 O2 Del Method Room Air 06/09/23 16:00 Discharge Plan Discharge Patient Disposition: Home Condition: Stable Prescriptions: Continued albuterol sulfate 90 mcg/actuation HFA aerosol inhaler 2 puff INHALATION Q6H PRN (Reason: Shortness Of Breath Or Wheezing) acetaminophen 500 mg Tablet 1,000 mg PO Q6H PRN (Reason: Pain) pantoprazole 40 mg tablet,delayed release (DR/EC) 40 mg PO QAM ondansetron 4 mg tablet,disintegrating 4 mg PO Q6H PRN (Reason: Nausea And Vomiting) melatonin 5 mg Tablet 5 mg PO BEDTIME PRN (Reason: Sleep) carbamazepine 200 mg tablet 200 mg PO BID fluoxetine 10 mg capsule 10 mg PO DAILY Semglee(insulin glarg-yfgn)Pen 100 unit/mL (3 mL) insulin pen 40 unit SUBCUT .@NOON Qty: 15 0RF Humalog KwikPen Insulin 200 unit/mL (3 mL) insulin pen See Rx Instructions .ROUTE .COMPLEX Qty: 15 3RF Rx Instructions: sliding scale tid Discharge Orders: Discharge Order (Routine); Ordered 06/09/23 Ordered By: Carmelina Kirk Referrals: Shay,Raquel, REGISTERED MEDICAL ASSISTANT [Primary Care Provider] - Patient Instructions: Opioid Safety Discharge Attestations Time Spent in Discharge Care*: greater than 30 min Quality Metrics Clinical Quality Measures [ No reported AMI, CVA or VTE this stay] Coding Level of Care Code Acute Code for Chg Fwd Diagnoses Diabetic ketoacidosis E10.10 Diabetes mellitus complication detail: without coma Diabetes mellitus type: type 1 Type 1 diabetes E10.9 Intractable nausea and vomiting R11.2 Cannabis hyperemesis syndrome concurrent with and due to cannabis abuse F12.188 Strep throat J02.0 Leukocytosis D72.829 Transaminitis R74.01 MONICA (acute kidney injury) N17.9
[2023-06-09] MEDS: sodium chloride 0.9% 1,000 ML 75 ML IV (16:10)
[2023-06-09] MEDS: insulin glargine 100 units/1 mL 40 UNIT SUBCUT (16:10)
[2023-06-09 17:04] LABS: Glucose Point of Care 245 mg/dL (70-110)
[2023-06-09] MEDS: insulin lispro 100 unit/1 mL SUBCUT (17:29)
[2023-06-09 18:33] LABS: Glucose Point of Care 194 mg/dL (70-110)
--- NOTE | 2023-06-09 18:46 | PC.NURSE ---
discharge instruction given with significant other at bedside. IV removed and dressing applied. no questions or concerns at this time. pt escorted out to personal vehicle. education provided on s/s of DKA and hypoglycemia.
[2023-06-09 18:51] LABS: Anion Gap 12.9 (5-19); Blood Urea Nitrogen 14 mg/dL (6-20); Calcium 8.4 mg/dL (8.5-10.5); Carbon Dioxide 23 mmol/L (22-29); Chloride 101 mmol/L (98-107); Glomerular Filtration Rate 77.2 mL/min (90-130); Glucose 201 mg/dL (65-115); Osmolality Calculated 282 mOsm/kg (285-295); Potassium 3.9 mmol/L (3.5-5.1); Sodium 133 mmol/L (136-145)
== END 2023-06-09 18:44 | disposition home or self-care (01) | DRG 638 ==
LOC: ER 06-09 00:50 → ICU 06-09 03:49
PROVIDERS: Admitting Provider Internal Medicine; Emergency Provider Emergency Medicine; PCP Nurse Practitioner Family; Visit Provider Internal Medicine
DX: E10.10 Type 1 diabetes mellitus with ketoacidosis without coma (principal); N17.9 Acute kidney failure, unspecified; E86.1 Hypovolemia; Z11.52 Encounter for screening for COVID-19; Z79.4 Long term (current) use of insulin
CPT/HCPCS: 36415; 36416; 36600; 74022; 80048; 80053; 81003; 82009; 82803; 82962; 83690; 83735; 84100; 85025; 87081; 87635; 87880; 96365; 96366; 96367; 96372; 96375; 99285; C9113; J1200; J1650; J1815; J2405; J2543; J2765; J7030; J7050

== ENCOUNTER 2023-06-20 15:27 | Emergency (ER) | payer OTHER, SELFPAY ==
[2023-06-20] VITALS (8 sets, daily range): BP systolic 116–140; BP diastolic 68–81; PULSE 96–110; RESP 14–18; TEMP 36.6; O2SAT 98–100
[2023-06-20 16:06] LABS: Basophils # 0.1 10^3/uL (0.0-0.1); Basophils % 0.4 %; Eosinophils % 0.1 %; Hematocrit 44.6 % (37-53); Lymphocytes # 0.7 10^3/uL (1.5-6.5); Lymphocytes % 3.6 %; Mean Corpuscular HGB Conc 34.5 g/dL (30-55); Mean Corpuscular Hemoglobin 29.8 pg (27-33); Mean Corpuscular Volume 86.4 fl (82-101); Mean Platelet Volume 9.3 fL (7.4-10.4); Monocytes # 1.3 10^3/uL (0.2-0.9); Monocytes % 6.9 %; Neutrophils # 16.01 10^3/uL (1.8-8.0); Neutrophils % 88.2 %; Nucleated Red Blood Cells % 0 %; Platelet Count 265 10^3/cmm (157-399); Red Blood Count 5.16 10^6/uL (3.85-5.65); Red Cell Distribution Width 13.1 % (12.1-15.1); White Blood Count 18.13 10^3/uL (4.5-13.0)
[2023-06-20 16:25] LABS: Glucose Point of Care 152 mg/dL (70-110)
[2023-06-20 16:28] LABS: Alanine Aminotransferase 35 U/L (0-41); Albumin Level 4.6 g/dL (3.5-5.2); Alkaline Phosphatase 100 U/L (40-130); Blood Urea Nitrogen 18 mg/dL (6-20); Calcium 9.4 mg/dL (8.5-10.5); Carbon Dioxide 20 mmol/L (22-29); Chloride 98 mmol/L (98-107); Creatinine Clr Calc Pharmacy 134.8704; Globulin 3.2 g/dL (1.3-4.6); Glomerular Filtration Rate 107.6 mL/min (90-130); Glucose 171 mg/dL (65-115); Lipase 12 U/L (13-60); Osmolality Calculated 288 mOsm/kg (285-295); Sodium 136 mmol/L (136-145); Total Bilirubin 0.6 mg/dL (0.15-1.2); Total Protein 7.8 g/dL (6.6-8.7)
[2023-06-20 16:32] LABS: Anion Gap 22.4 (5-19); Aspartate Amino Transferase 35 U/L (0-40); Potassium 4.4 mmol/L (3.5-5.1)
[2023-06-20 16:41] LABS: Add Urine Microscopic? NO; Charge for UA Resulting for Rev
[2023-06-20 16:43] LABS: Ketone (Acetest) Serum Negative (Negative)
[2023-06-20 16:59] LABS: Bilirubin Urine Neg (Negative); Blood Urine Neg (Negative); Glucose Urine UA 4+ (Normal); Ketones Urine 3+ (Negative); Leukocyte Esterase Urine Negative (Negative); Nitrate Urine Negative (Negative); Protein Urine Neg (Negative); Urine Appearance Clear (CLEAR); Urine Color Yellow (Yellow); Urobilinogen Urine Norm (Negative); pH Urine 5 (5-7)
--- NOTE | 2023-06-20 17:00 | W.ED.NAVMDI ---
Documented by User: CODY Dupree 06/20/23 20:04 HPI - Nausea/Vomiting/Diarrhea General: Chief complaint: Nausea/Vomiting/Diarrhea Stated complaint: n,v, Time Seen by Provider: 06/20/23 16:41 Source: patient Mode of arrival: ambulatory Limitations: no limitations History of Present Illness: Patient is a 18-year-old male with past medical history of type 1 diabetes who presents to the emergency department complaining of nausea vomiting onset this morning. Patient reports to many episodes of vomiting to count and states that it appears bilious. He smokes marijuana daily and states that he has had an episode of hyperemesis in the past. Patient states that he was seen at his doctor's office prior to arrival and had a blood sugar of 224. His [id number] glucose in the ED today was 150. He states that he has been taking his regular insulin as prescribed and checks his glucose regularly. He has been unable to keep down any solids or liquids. He also notes some recent upper respiratory symptoms such as subjective fever, runny nose, and sore throat. He also states he has had chills and some bodyaches. He denies any abdominal pain, shortness of breath, urinary changes, visual changes, or any other symptoms. MD elicited complaint: nausea and vomiting Pertinent past history: other (Type I diabetic) Description of vomiting: bilious Associated nausea: Yes Associated abdominal pain: No Context: marijuana use Associated symtoms: Reports nausea; Denies change in vision, chest pain, diaphoresis, dizziness, dysuria, headache(s) or palpitations Review of Systems General: Reports: 10 or more systems reviewed and unremarkable except in HPI and below Const: Reports: fever(s) (Subjective), chills and body aches; Denies: change in appetite, change in weight or diaphoresis Eyes: Denies: change in vision ENMT: Reports: throat pain and nasal discharge; Denies: hoarseness Card: Denies: chest pain, palpitations, irregular heart rhythm, edema or lightheadedness Resp: Denies: dyspnea, productive cough or wheezing GI: Reports: nausea and vomiting; Denies: abdominal pain, hematemesis, coffee ground emesis, diarrhea, constipation or change in bowel habits : Denies: flank pain, difficulty urinating, dysuria, urinary frequency or urinary urgency Musc: Denies: neck pain or back pain Skin/Breast: Denies: rash or new lesions Neuro: Denies: headache(s) or dizziness PFSH ED PFSH: Medical History MONICA (acute kidney injury) Transaminitis Leukocytosis Strep throat Cannabis hyperemesis syndrome concurrent with and due to cannabis abuse Intractable nausea and vomiting Diabetic ketoacidosis Type 1 diabetes Surgical History No significant past surgical history Family History Other Depression Social History Smoking and tobacco/nicotine status: never used tobacco/nicotine Alcohol intake: never Lives independently: Yes Household members: other Details: Fiancee Current occupational status: employed Physical Exam Const: COMMON NORMALS: average body habitus, patient oriented x3, no limitations and alert GENERAL APPEARANCE: cooperative, well developed and ill appearing ORIENTATION/CONSCIOUSNESS: Yes awake HENMT: COMMON NORMALS: normocephalic, atraumatic, hearing grossly normal bilaterally, external ears normal, EAC's normal, TM's normal bilaterally, Normal external nose present, Normal nasal mucous membranes and turbinates present and moist oral mucous membranes HEAD & SCALP: normocephalic and atraumatic FACE & SINUS: normal facial exam and sinuses nontender NOSE: Normal external nose present, Normal nares present, No nasal polyps present and Normal nasal mucous membranes and turbinates present EXTERNAL EAR: Yes external ears normal EXTERNAL AUDITORY CANAL: EAC's normal TYMPANIC MEMBRANE: TM's normal bilaterally MOUTH: Normal oral and palatal mucosa present THROAT: tonsils normal and posterior oropharynx abnormal erythema Eye: COMMON NORMALS: Equal, round and reactive pupils present, EOMs intact bilaterally, conjunctivae normal and normal visual cardona by confrontation CONJUNCTIVA: Yes conjunctivae normal PUPIL: Yes Equal, round and reactive pupils present Neck/C-Spine: COMMON NORMALS: full ROM, supple, no meningeal signs and no JVD Resp: COMMON NORMALS: normal respiratory effort, No retractions, No use of accessory muscles and clear to auscultation bilaterally EFFORT & INSPECTION: Yes Actively coughing non-productive AUSCULTATION: clear to auscultation bilaterally, no crackles, no rales, no rhonchi and no wheezes Cardio: COMMON NORMALS: no JVD, regular rate, regular rhythm, S1 normal heart sound present, S2 normal heart sound present, No gallops present (Cardio), No clicks present (Cardio), No murmurs present (Cardio), No rub (Cardio) and Peripheral pulses 2+ throughout RATE: regular rate RHYTHM: regular rhythm HEART SOUNDS: S1 normal heart sound present and S2 normal heart sound present PERIPHERAL PULSES: Peripheral pulses 2+ throughout GI: COMMON NORMALS: Normal to inspection, nondistended, normoactive bowel sounds present, Soft to palpation, non-tender, No hepatosplenomegaly present and no masses AUSCULTATION: Yes normoactive bowel sounds PALPATION: Yes Soft to palpation, No Guarding due to palpation present (GI), No Rigid due to palpation and Yes No hepatosplenomegaly present RECTAL EXAM: Yes deferred Extremity: COMMON NORMALS: normal to inspection, full ROM, capillary refill normal and no clubbing, cyanosis or edema Neuro: COMMON NORMALS: patient oriented x3, moves all extremities, no focal motor deficits and no sensory deficits noted SENSORIUM/ORIENTATION: Yes alert MENINGEAL SIGNS: Yes no meningeal signs Psych: COMMON NORMALS: mental status grossly normal, cooperative and speech normal SPEECH: Yes normal speech Skin: COMMON NORMALS: no rashes or lesions noted and turgor normal NARRATIVE SKIN EXAM: Slight pallor noted GENERAL SKIN EXAM: no rashes or lesions noted and turgor normal Course Vital Signs: Vital signs: Vital Signs Temperature 98 F 06/20/23 15:48 Pulse Rate 110 H 06/20/23 19:26 Respiratory Rate 18 06/20/23 19:26 Blood Pressure 140/81 06/20/23 17:30 Pulse Oximetry 100 06/20/23 19:26 Oxygen Delivery Me thod Room Air 06/20/23 19:26 MDM - Nausea/Vomiting/Diarrhea Medical Decision Making This patient is a 18-year-old male who was seen and evaluated in the emergency department today for nausea vomiting onset today. Patient is a type I diabetic and was seen at his primary care's office and noted to have a blood sugar in the 230s. He was sent to the ER due to his accompanied nausea and vomiting and states that he is a frequent marijuana user and has been to the ED before for cannabis hyperemesis. He states that this feels similar and he has had too many episodes of vomiting to count. Initially, his vitals were overall unremarkable aside from a minimally elevated heart rate, likely due to dehydration. On examination, patient appeared pale and showed signs of dehydration. After given 2 L of fluid and dose of Reglan, he was rechecked after an hour and stated that his symptoms had improved greatly. Prior to discharge, he was given a p.o. challenge which he passed and was given a dose of Phenergan. His labs were positive for high white count, likely due to his cyclical vomiting. His ABG was negative for any signs of acid-base imbalance, and overall the rest of his labs are unremarkable. He will be discharged home with a prescription for Reglan, and will follow-up with his primary care provider to further discuss marijuana cessation and any necessary workup. He agrees with this plan. The patient will continue to monitor his blood sugars and reasons to return are discussed. Patient discharged home. Lab Data 06/20/23 15:46 06/20/23 15:46 Laboratory Results WBC 18.13 10^3/uL (4.5-13.0) H 06/20/23 15:46 RBC 5.16 10^6/uL (3.85-5.65) 06/20/23 15:46 Hgb 15.40 g/dL (13.2-15.6) 06/20/23 15:46 Hct 44.6 % (37-53) 06/20/23 15:46 MCV 86.4 fl (82-101) 06/20/23 15:46 MCH 29.8 pg (27-33) 06/20/23 15:46 MCHC 34.5 g/dL (30-55) 06/20/23 15:46 RDW 13.1 % (12.1-15.1) 06/20/23 15:46 Plt Count 265 10^3/cmm (157-399) 06/20/23 15:46 MPV 9.3 fL (7.4-10.4) 06/20/23 15:46 Neut % (Auto) 88.2 % 06/20/23 15:46 Lymph % (Auto) 3.6 % 06/20/23 15:46 Snyder % (Auto) 6.9 % 06/20/23 15:46 Eos % (Auto) 0.1 % 06/20/23 15:46 Baso % (Auto) 0.4 % 06/20/23 15:46 Neut # (Auto) 16.01 10^3/uL (1.8-8.0) H 06/20/23 15:46 Lymph # (Auto) 0.7 10^3/uL (1.5-6.5) L 06/20/23 15:46 Snyder # (Auto) 1.3 10^3/uL (0.2-0.9) H 06/20/23 15:46 Eos # (Auto) 0.0 10^3/uL (0.0-0.8) 06/20/23 15:46 Baso # (Auto) 0.1 10^3/uL (0.0-0.1) 06/20/23 15:46 Nucleated RBC % (auto) 0 % 06/20/23 15:46 Nucleated RBCs # 0.0 /100WBC 06/20/23 15:46 Specimen Type Arterial 06/20/23 17:00 Sample Site Brachial, right 06/20/23 17:00 ABG pH 7.42 (7.35-7.45) 06/20/23 17:00 ABG pCO2 34.3 mmHg (35-45) L 06/20/23 17:00 ABG pO2 91.3 mmHg (80.0-100.0) 06/20/23 17:00 ABG PO2/FiO2 Ratio 0 06/20/23 17:00 ABG HCO3 22.3 mmol/L (22-26) 06/20/23 17:00 ABG Base Excess -1.4 mmol/L (-2.0-2.0) 06/20/23 17:00 Steven Test Pos 06/20/23 17:00 Hematocrit 47.1 % (42-52) 06/20/23 17:00 O2 Delivery Device Room air 06/20/23 17:00 FiO2 21.0 % 06/20/23 17:00 Evp General Counsel ID Mekaro 06/20/23 17:00 Sodium 136 mmol/L (136-145) 06/20/23 15:46 Potassium 4.4 mmol/L (3.5-5.1) 06/20/23 15:46 Chloride 98 mmol/L (98-107) 06/20/23 15:46 Carbon Dioxide 20 mmol/L (22-29) L 06/20/23 15:46 Anion Gap 22.4 (5-19) H 06/20/23 15:46 BUN 18 mg/dL (6-20) 06/20/23 15:46 Creatinine 0.9 mg/dL (0.7-1.2) 06/20/23 15:46 GFR Calculation 107.6 mL/min (90-130) 06/20/23 15:46 Glucose 171 mg/dL (65-115) H 06/20/23 15:46 POC Glucose 152 mg/dL (70-110) H 06/20/23 16:21 Calculated Osmolality 288 mOsm/kg (285-295) 06/20/23 15:46 Calcium 9.4 mg/dL (8.5-10.5) 06/20/23 15:46 Total Bilirubin 0.6 mg/dL (0.15-1.2) 06/20/23 15:46 AST 35 U/L (0-40) 06/20/23 15:46 ALT 35 U/L (0-41) 06/20/23 15:46 Alkaline Phosphatase 100 U/L (40-130) 06/20/23 15:46 Total Protein 7.8 g/dL (6.6-8.7) 06/20/23 15:46 Albumin 4.6 g/dL (3.5-5.2) 06/20/23 15:46 Globulin 3.2 g/dL (1.3-4.6) 06/20/23 15:46 Lipase 12 U/L (13-60) L 06/20/23 15:46 Urine Color Yellow (Yellow) 06/20/23 16:06 Urine Appearance Clear (CLEAR) 06/20/23 16:06 Urine pH 5 (5-7) 06/20/23 16:06 Ur Specific [place] 1.020 (1.005-1.030) 06/20/23 16:06 Urine Protein Neg (Negative) 06/20/23 16:06 Urine Glucose (UA) 4+ (Normal) H 06/20/23 16:06 Urine Ketones 3+ (Negative) H 06/20/23 16:06 Urine Blood Neg (Negative) 06/20/23 16:06 Urine Nitrate Negative (Negative) 06/20/23 16:06 Urine Bilirubin Neg (Negative) 06/20/23 16:06 Urine Urobilinogen Norm mg/dL (Negative) 06/20/23 16:06 Ur Leukocyte Esterase Negative (Negative) 06/20/23 16:06 Serum Ketones Negative (Negative) 06/20/23 15:46 Influenza Type A Ag negative (Negative) 06/20/23 17:25 Influenza Type B Ag negative (Negative) 06/20/23 17:25 Discharge Plan Discharge Patient Disposition: Home Clinical Impression: Cannabis hyperemesis syndrome concurrent with and due to cannabis abuse Condition: Stable Prescriptions: New Reglan 10 mg tablet 10 mg PO Q6H PRN (Reason: nausea and vomiting) Qty: 30 0RF No Action albuterol sulfate 90 mcg/actuation HFA aerosol inhaler 2 puff INHALATION Q6H PRN (Reason: Shortness Of Breath Or Wheezing) acetaminophen 500 mg Tablet 1,000 mg PO Q6H PRN (Reason: Pain) pantoprazole 40 mg tablet,delayed release (DR/EC) 40 mg PO QAM ondansetron 4 mg tablet,disintegrating 4 mg PO Q6H PRN (Reason: Nausea And Vomiting) melatonin 5 mg Tablet 5 mg PO BEDTIME PRN (Reason: Sleep) carbamazepine 200 mg tablet 200 mg PO BID fluoxetine 10 mg capsule 10 mg PO DAILY Semglee(insulin glarg-yfgn)Pen 100 unit/mL (3 mL) insulin pen 40 unit SUBCUT .@NOON Qty: 15 0RF Humalog KwikPen Insulin 200 unit/mL (3 mL) insulin pen See Rx Instructions .ROUTE .COMPLEX Qty: 15 3RF Rx Instructions: sliding scale tid Discharge Orders: Discharge ED (Routine); Ordered 06/20/23 Ordered By: Shaji Valdes Referrals: Shay,Raquel, [facility] [Primary Care Provider] - Discharge Diet: Usual diet Discharge Activity: Increase activity as tolerated Patient Instructions: Cannabis Use Disorder (ED) Activity Restrictions/Additional Instructions: Reglan as directed. Plenty fluids. Continue to monitor your blood glucose levels. Stop marijuana smoking. Follow-up with your primary care provider. Return with any new or worsening symptoms. Coding Level of Care Code ED Supervisor Crack Off for Chg Fwd Documented by User: Sharath Suggs DO 06/21/23 06:12 HPI - Nausea/Vomiting/Diarrhea General: Chief complaint: Nausea/Vomiting/Diarrhea Stated complaint: n,v, Time Seen by Provider: 06/20/23 16:41 PFSH ED PFSH: Medical History MONICA (acute kidney injury) Transaminitis Leukocytosis Strep throat Cannabis hyperemesis syndrome concurrent with and due to cannabis abuse Intractable nausea and vomiting Diabetic ketoacidosis Type 1 diabetes Surgical History No significant past surgical history Family History Other Depression Social History Smoking and tobacco/nicotine status: never used tobacco/nicotine Alcohol intake: never Lives independently: Yes Household members: other Details: Fiancee Current occupational status: employed Course Vital Signs: Vital signs: Vital Signs Temperature 98 F 06/20/23 15:48 Pulse Rate 110 H 06/20/23 19:26 Respiratory Rate 18 06/20/23 19:26 Blood Pressure 140/81 06/20/23 17:30 Pulse Oximetry 100 06/20/23 19:26 Oxygen Delivery Me thod Room Air 06/20/23 19:26 MDM - Nausea/Vomiting/Diarrhea Medical Decision Making This patient is a 18-year-old male who was seen and evaluated in the emergency department today for nausea vomiting onset today. Patient is a type I diabetic and was seen at his primary care's office and noted to have a blood sugar in the 230s. He was sent to the ER due to his accompanied nausea and vomiting and states that he is a frequent marijuana user and has been to the ED before for cannabis hyperemesis. He states that this feels similar and he has had too many episodes of vomiting to count. Initially, his vitals were overall unremarkable aside from a minimally elevated heart rate, likely due to dehydration. On examination, patient appeared pale and showed signs of dehydration. After given 2 L of fluid and dose of Reglan, he was rechecked after an hour and stated that his symptoms had improved greatly. Prior to discharge, he was given a p.o. challenge which he passed and was given a dose of Phenergan. His labs were positive for high white count, likely due to his cyclical vomiting. His ABG was negative for any signs of acid-base imbalance, and overall the rest of his labs are unremarkable. He will be discharged home with a prescription for Reglan, and will follow-up with his primary care provider to further discuss marijuana cessation and any necessary workup. He agrees with this plan. The patient will continue to monitor his blood sugars and reasons to return are discussed. Patient discharged home. Chart reviewed and patient discussed with midlevel. Agree with assessment and plan. Lab Data 06/20/23 15:46 06/20/23 15:46 Laboratory Results WBC 18.13 10^3/uL (4.5-13.0) H 06/20/23 15:46 RBC 5.16 10^6/uL (3.85-5.65) 06/20/23 15:46 Hgb 15.40 g/dL (13.2-15.6) 06/20/23 15:46 Hct 44.6 % (37-53) 06/20/23 15:46 MCV 86.4 fl (82-101) 06/20/23 15:46 MCH 29.8 pg (27-33) 06/20/23 15:46 MCHC 34.5 g/dL (30-55) 06/20/23 15:46 RDW 13.1 % (12.1-15.1) 06/20/23 15:46 Plt Count 265 10^3/cmm (157-399) 06/20/23 15:46 MPV 9.3 fL (7.4-10.4) 06/20/23 15:46 Neut % (Auto) 88.2 % 06/20/23 15:46 Lymph % (Auto) 3.6 % 06/20/23 15:46 Snyder % (Auto) 6.9 % 06/20/23 15:46 Eos % (Auto) 0.1 % 06/20/23 15:46 Baso % (Auto) 0.4 % 06/20/23 15:46 Neut # (Auto) 16.01 10^3/uL (1.8-8.0) H 06/20/23 15:46 Lymph # (Auto) 0.7 10^3/uL (1.5-6.5) L 06/20/23 15:46 Snyder # (Auto) 1.3 10^3/uL (0.2-0.9) H 06/20/23 15:46 Eos # (Auto) 0.0 10^3/uL (0.0-0.8) 06/20/23 15:46 Baso # (Auto) 0.1 10^3/uL (0.0-0.1) 06/20/23 15:46 Nucleated RBC % (auto) 0 % 06/20/23 15:46 Nucleated RBCs # 0.0 /100WBC 06/20/23 15:46 Specimen Type Arterial 06/20/23 17:00 Sample Site Brachial, right 06/20/23 17:00 ABG pH 7.42 (7.35-7.45) 06/20/23 17:00 ABG pCO2 34.3 mmHg (35-45) L 06/20/23 17:00 ABG pO2 91.3 mmHg (80.0-100.0) 06/20/23 17:00 ABG PO2/FiO2 Ratio 0 06/20/23 17:00 ABG HCO3 22.3 mmol/L (22-26) 06/20/23 17:00 ABG Base Excess -1.4 mmol/L (-2.0-2.0) 06/20/23 17:00 Steven Test Pos 06/20/23 17:00 Hematocrit 47.1 % (42-52) 06/20/23 17:00 O2 Delivery Device Room air 06/20/23 17:00 FiO2 21.0 % 06/20/23 17:00 Evp General Counsel ID Mekaro 06/20/23 17:00 Sodium 136 mmol/L (136-145) 06/20/23 15:46 Potassium 4.4 mmol/L (3.5-5.1) 06/20/23 15:46 Chloride 98 mmol/L (98-107) 06/20/23 15:46 Carbon Dioxide 20 mmol/L (22-29) L 06/20/23 15:46 Anion Gap 22.4 (5-19) H 06/20/23 15:46 BUN 18 mg/dL (6-20) 06/20/23 15:46 Creatinine 0.9 mg/dL (0.7-1.2) 06/20/23 15:46 GFR Calculation 107.6 mL/min (90-130) 06/20/23 15:46 Glucose 171 mg/dL (65-115) H 06/20/23 15:46 POC Glucose 152 mg/dL (70-110) H 06/20/23 16:21 Calculated Osmolality 288 mOsm/kg (285-295) 06/20/23 15:46 Calcium 9.4 mg/dL (8.5-10.5) 06/20/23 15:46 Total Bilirubin 0.6 mg/dL (0.15-1.2) 06/20/23 15:46 AST 35 U/L (0-40) 06/20/23 15:46 ALT 35 U/L (0-41) 06/20/23 15:46 Alkaline Phosphatase 100 U/L (40-130) 06/20/23 15:46 Total Protein 7.8 g/dL (6.6-8.7) 06/20/23 15:46 Albumin 4.6 g/dL (3.5-5.2) 06/20/23 15:46 Globulin 3.2 g/dL (1.3-4.6) 06/20/23 15:46 Lipase 12 U/L (13-60) L 06/20/23 15:46 Urine Color Yellow (Yellow) 06/20/23 16:06 Urine Appearance Clear (CLEAR) 06/20/23 16:06 Urine pH 5 (5-7) 06/20/23 16:06 Ur Specific [place] 1.020 (1.005-1.030) 06/20/23 16:06 Urine Protein Neg (Negative) 06/20/23 16:06 Urine Glucose (UA) 4+ (Normal) H 06/20/23 16:06 Urine Ketones 3+ (Negative) H 06/20/23 16:06 Urine Blood Neg (Negative) 06/20/23 16:06 Urine Nitrate Negative (Negative) 06/20/23 16:06 Urine Bilirubin Neg (Negative) 06/20/23 16:06 Urine Urobilinogen Norm mg/dL (Negative) 06/20/23 16:06 Ur Leukocyte Esterase Negative (Negative) 06/20/23 16:06 Serum Ketones Negative (Negative) 06/20/23 15:46 Influenza Type A Ag negative (Negative) 06/20/23 17:25 Influenza Type B Ag negative (Negative) 06/20/23 17:25 All radiology interpretation(s) finalized by discharge Discharge Plan Discharge Patient Disposition: Home Clinical Impression: Cannabis hyperemesis syndrome concurrent with and due to cannabis abuse Condition: Stable Prescriptions: New Reglan 10 mg tablet 10 mg PO Q6H PRN (Reason: nausea and vomiting) Qty: 30 0RF No Action albuterol sulfate 90 mcg/actuation HFA aerosol inhaler 2 puff INHALATION Q6H PRN (Reason: Shortness Of Breath Or Wheezing) acetaminophen 500 mg Tablet 1,000 mg PO Q6H PRN (Reason: Pain) pantoprazole 40 mg tablet,delayed release (DR/EC) 40 mg PO QAM ondansetron 4 mg tablet,disintegrating 4 mg PO Q6H PRN (Reason: Nausea And Vomiting) melatonin 5 mg Tablet 5 mg PO BEDTIME PRN (Reason: Sleep) carbamazepine 200 mg tablet 200 mg PO BID fluoxetine 10 mg capsule 10 mg PO DAILY Semglee(insulin glarg-yfgn)Pen 100 unit/mL (3 mL) insulin pen 40 unit SUBCUT .@NOON Qty: 15 0RF Humalog KwikPen Insulin 200 unit/mL (3 mL) insulin pen See Rx Instructions .ROUTE .COMPLEX Qty: 15 3RF Rx Instructions: sliding scale tid Discharge Orders: Discharge ED (Routine); Ordered 06/20/23 Ordered By: Shaji Valdes Referrals: Raquel Shay APN [Primary Care Provider] - Discharge Diet: Usual diet Discharge Activity: Increase activity as tolerated Patient Instructions: Cannabis Use Disorder (ED) Activity Restrictions/Additional Instructions: Reglan as directed. Plenty fluids. Continue to monitor your blood glucose levels. Stop marijuana smoking. Follow-up with your primary care provider. Return with any new or worsening symptoms. Coding Level of Care Code ED Supervisor Crack Off for Wilmar Leroy
[2023-06-20 17:12] LABS: ABG PCO2 34.3 mmHg (35-45); ABG PH Result 7.42 (7.35-7.45); Arterial Blood Gas Hematocrit 47.1 % (42-52); Base Excess ABG -1.4 mmol/L (-2.0-2.0); Blood Gas Allen Test Pos; Blood Gas Operator Identificat MONRO; Blood Gas Sample Site Brachial, right; Blood Gas Sample Type Arterial; HCO3 ABG 22.3 mmol/L (22-26); Oxygen Device ROOM AIR; PO2 ABG 91.3 mmHg (80.0-100.0); PO2 FiO2 Ratio Arterial Blood 0
[2023-06-20] MEDS: sodium chloride 0.9% 1,000 ML 999 ML IV (17:24)
[2023-06-20] MEDS: metoclopramide 5 mg/mL SDV 2 mL 10 MG IVP (17:24)
[2023-06-20 17:51] LABS: Influenza A by IFA negative (Negative); Influenza B by IFA negative (Negative)
[2023-06-20] MEDS: promethazine 25 mg Tablet PO (19:25)
== END 2023-06-20 19:36 | disposition home or self-care (01) ==
PROVIDERS: Emergency Medicine; Emergency Provider Physician Assistant; PCP Nurse Practitioner Family
DX: R11.2 Nausea with vomiting, unspecified (principal); F12.10 Cannabis abuse, uncomplicated; Z79.4 Long term (current) use of insulin; E10.9 Type 1 diabetes mellitus without complications
CPT/HCPCS: 36415; 36416; 36600; 80053; 81003; 82009; 82803; 82962; 83690; 85025; 87804; 96361; 96374; 99284; J2765; J7030; Q0169

== ENCOUNTER 2023-07-13 17:00 | Inpatient (IN) | payer OTHER, SELFPAY ==
[2023-07-13] VITALS (9 sets, daily range): BP systolic 113–161; BP diastolic 74–105; PULSE 58–109; RESP 13–22; TEMP 36.6–36.8; O2SAT 94–96; BMI 22.9
[2023-07-13 17:55] LABS: Glucose Point of Care 417 mg/dL (70-110)
[2023-07-13 18:12] LABS: Add Urine Microscopic? NO; Charge for UA Resulting for Rev
[2023-07-13 18:14] LABS: Basophils # 0.1 10^3/uL (0.0-0.1); Basophils % 0.8 %; Eosinophils % 0.1 %; Hematocrit 44.6 % (37-53); Lymphocytes # 0.9 10^3/uL (1.5-6.5); Lymphocytes % 7.3 %; Mean Corpuscular HGB Conc 34.8 g/dL (30-55); Mean Corpuscular Hemoglobin 29.9 pg (27-33); Mean Corpuscular Volume 85.9 fl (82-101); Mean Platelet Volume 9.7 fL (7.4-10.4); Monocytes # 0.4 10^3/uL (0.2-0.9); Monocytes % 3.3 %; Neutrophils # 10.54 10^3/uL (1.8-8.0); Neutrophils % 88.2 %; Nucleated Red Blood Cells % 0 %; Platelet Count 283 10^3/cmm (157-399); Red Blood Count 5.19 10^6/uL (3.85-5.65); Red Cell Distribution Width 12.7 % (12.1-15.1); White Blood Count 11.94 10^3/uL (4.5-13.0)
[2023-07-13] MEDS: sodium chloride 0.9% 1,000 ML 999 ML IV (18:15)
[2023-07-13] MEDS: ondansetron 2 mg/ML SDV 2 mL 4 MG IVP ×2 (18:15→23:42)
[2023-07-13 18:16] LABS: ABG PCO2 36.4 mmHg (35-45); ABG PH Result 7.37 (7.35-7.45); Alveolar-Arterial Oxygen Gradi 3.4 mmHg (5-10); Arterial Blood Gas Hematocrit 48.5 % (42-52); Base Excess ABG -3.6 mmol/L (-2.0-2.0); Blood Gas Operator Identificat AMH; Blood Gas Sample Site Brachial, left; Blood Gas Sample Type Arterial; HCO3 ABG 21.1 mmol/L (22-26); HGB O2 Sat 95.1 % (95-100); Ionized Calcium Level - ABG 1.3 mmol/L (1.1-1.4); Methemoglobin 0.3 % (0.4-1.5); Oxygen Device ROOM AIR; Oxygen Saturation ABG 96.3; PO2 ABG 78.3 mmHg (80.0-100.0); PO2 FiO2 Ratio Arterial Blood 0; Total Hemoglobin 15.8 g/dL (14-18)
[2023-07-13 18:18] LABS: Glucose Urine UA 4+ (Normal); Protein Urine Neg (Negative); Specific Gravity, Urine 1.015 (1.005-1.030); Urine Appearance Clear (CLEAR); Urine Color Light yellow (Yellow); pH Urine 5 (5-7)
[2023-07-13 18:19] LABS: Bilirubin Urine Neg (Negative); Blood Urine Neg (Negative); Ketones Urine 3+ (Negative); Leukocyte Esterase Urine Negative (Negative); Nitrate Urine Negative (Negative); Urobilinogen Urine Neg (Negative)
--- NOTE | 2023-07-13 18:20 | ED_ITS ---
HPI - Nausea/Vomiting/Diarrhea 2 General: Chief complaint: Nausea/Vomiting/Diarrhea Stated complaint: possible DKA N/V Time Seen by Provider: 07/13/23 17:52 History of Present Illness: Patient presents to the ER with nausea vomiting tachycardia hyperglycemia. Patient says he is insulin-dependent diabetic is poorly controlled. He feels that his blood sugars been high and this is because of his vomiting. Patient been running in the 400s lately. Patient has been in DKA before and feels like he is getting there again. Review of Systems 2 General: Reports: 10 or more systems reviewed and unremarkable except in HPI and below PFSH ED 2 PFSH: Medical History MONICA (acute kidney injury) Transaminitis Leukocytosis Strep throat Cannabis hyperemesis syndrome concurrent with and due to cannabis abuse Intractable nausea and vomiting Diabetic ketoacidosis Type 1 diabetes Surgical History No significant past surgical history Family History Other Depression Social History Smoking and tobacco/nicotine status: never used tobacco/nicotine Alcohol intake: never Lives independently: Yes Household members: other Details: Fiancee Current occupational status: employed Physical Exam 2 Const: COMMON NORMALS: no acute distress, average body habitus, patient oriented x3, no limitations, healthy appearing, alert and well nourished HENMT: COMMON NORMALS: normocephalic, atraumatic, hearing grossly normal bilaterally, external ears normal, Normal external nose present, moist oral mucous membranes and oropharynx normal HEAD & SCALP: normocephalic and atraumatic NOSE: Normal external nose present EXTERNAL EAR: Yes external ears normal Neck/C-Spine: COMMON NORMALS: no JVD Chest: COMMONS NORMALS: normal inspection of the chest and normal palpation of entire chest wall Resp: COMMON NORMALS: normal respiratory effort, No retractions, No use of accessory muscles and clear to auscultation bilaterally AUSCULTATION: clear to auscultation bilaterally Cardio: COMMON NORMALS: no JVD, regular rate, regular rhythm, S1 normal heart sound present, S2 normal heart sound present, No gallops present (Cardio), No clicks present (Cardio), No murmurs present (Cardio) and No rub (Cardio) R ATE: regular rate RHYTHM: regular rhythm HEART SOUNDS: S1 normal heart sound present and S2 normal heart sound present GI: COMMON NORMALS: Normal to inspection, nondistended, normoactive bowel sounds present, Soft to palpation, non-tender, No hepatosplenomegaly present and no masses PALPATION: Yes Soft to palpation and Yes No hepatosplenomegaly present Neuro: COMMON NORMALS: patient oriented x3 SENSORIUM/ORIENTATION: Yes alert Course 2 Vital Signs: Vital signs: Vital Signs Temperature 97.9 F 07/13/23 17:14 Pulse Rate 78 07/13/23 18:16 Respiratory Rate 22 H 07/13/23 17:14 Blood Pressure 157/105 07/13/23 18:16 Pulse Oximetry 94 07/13/23 18:16 Oxygen Delivery Me thod Room Air 07/13/23 18:16 MDM - Nausea/Vomiting/Diarrhea Medical Decision Making Patient arrived blood sugar in the 400s, DKA workup was started. Patient was had positive for serum ketones, 4+ glucose 3+ ketones in his urine, pH was 7.37 with a bicarb of 20 and anion gap of 24.5. Dr. Kirk was consulted. Will place patient on insulin drip and admit to the ICU. Differential Diagnosis Likely dehydration; Unlikely traveler's diarrhea, food poisoning, gastroenteritis, clostridium difficile infection or drug-induced nausea and vomiting Medical Records I reviewed the patient's medical records. Lab Data I reviewed the patient's lab results. 07/13/23 17:58 07/13/23 17:58 Laboratory Results WBC 11.94 10^3/uL (4.5-13.0) 07/13/23 17:58 RBC 5.19 10^6/uL (3.85-5.65) 07/13/23 17:58 Hgb 15.50 g/dL (13.2-15.6) 07/13/23 17:58 Hct 44.6 % (37-53) 07/13/23 17:58 MCV 85.9 fl (82-101) 07/13/23 17:58 MCH 29.9 pg (27-33) 07/13/23 17:58 MCHC 34.8 g/dL (30-55) 07/13/23 17:58 RDW 12.7 % (12.1-15.1) 07/13/23 17:58 Plt Count 283 10^3/cmm (157-399) 07/13/23 17:58 MPV 9.7 fL (7.4-10.4) 07/13/23 17:58 Neut % (Auto) 88.2 % 07/13/23 17:58 Lymph % (Auto) 7.3 % 07/13/23 17:58 Hernando % (Auto) 3.3 % 07/13/23 17:58 Eos % (Auto) 0.1 % 07/13/23 17:58 Baso % (Auto) 0.8 % 07/13/23 17:58 Neut # (Auto) 10.54 10^3/uL (1.8-8.0) H 07/13/23 17:58 Lymph # (Auto) 0.9 10^3/uL (1.5-6.5) L 07/13/23 17:58 Hernando # (Auto) 0.4 10^3/uL (0.2-0.9) 07/13/23 17:58 Eos # (Auto) 0.0 10^3/uL (0.0-0.8) 07/13/23 17:58 Baso # (Auto) 0.1 10^3/uL (0.0-0.1) 07/13/23 17:58 Nucleated RBC % (auto) 0 % 07/13/23 17:58 Nucleated RBCs # 0.0 /100WBC 07/13/23 17:58 Specimen Type Arterial 07/13/23 18:05 Sample Site Brachial, left 07/13/23 18:05 ABG pH 7.37 (7.35-7.45) 07/13/23 18:05 ABG pCO2 36.4 mmHg (35-45) 07/13/23 18:05 ABG pO2 78.3 mmHg (80.0-100.0) L 07/13/23 18:05 ABG PO2/FiO2 Ratio 0 07/13/23 18:05 ABG HCO3 21.1 mmol/L (22-26) L 07/13/23 18:05 ABG O2 Saturation 96.3 07/13/23 18:05 ABG Base Excess -3.6 mmol/L (-2.0-2.0) L 07/13/23 18:05 Steven Test N/a 07/13/23 18:05 A-a O2 Gradient 3.4 mmHg (5-10) L 07/13/23 18:05 Hematocrit 48.5 % (42-52) 07/13/23 18:05 Hgb O2 Saturation 95.1 % (95-100) 07/13/23 18:05 Carboxyhemoglobin 1.0 %THgb (0.4-20.1) 07/13/23 18:05 Methemoglobin 0.3 % (0.4-1.5) L 07/13/23 18:05 Total Hemoglobin 15.8 g/dL (14-18) 07/13/23 18:05 Sodium 142.0 mmol/L (131-143) 07/13/23 18:05 Potassium 4.0 mmol/L (3.5-5.0) 07/13/23 18:05 Glucose 322.0 mg/dL (70-115) H 07/13/23 18:05 Ionized Calcium 1.3 mmol/L (1.1-1.4) 07/13/23 18:05 O2 Delivery Device Room air 07/13/23 18:05 FiO2 21.0 % 07/13/23 18:05 Professor Of Graphic Design ID [facility] 07/13/23 18:05 Sodium 140 mmol/L (136-145) 07/13/23 17:58 Potassium 4.5 mmol/L (3.5-5.1) 07/13/23 17:58 Chloride 100 mmol/L (98-107) 07/13/23 17:58 Carbon Dioxide 20 mmol/L (22-29) L 07/13/23 17:58 Anion Gap 24.5 (5-19) H 07/13/23 17:58 BUN 18 mg/dL (6-20) 07/13/23 17:58 Creatinine 1.0 mg/dL (0.7-1.2) 07/13/23 17:58 GFR Calculation 95.3 mL/min (90-130) 07/13/23 17:58 Glucose 367 mg/dL (65-115) H 07/13/23 17:58 POC Glucose 267 mg/dL (70-110) H 07/13/23 19:11 Calculated Osmolality 307 mOsm/kg (285-295) H 07/13/23 17:58 Calcium 9.7 mg/dL (8.5-10.5) 07/13/23 17:58 Magnesium 2.0 mg/dL (1.7-2.3) 07/13/23 17:58 Total Bilirubin 0.9 mg/dL (0.15-1.2) 07/13/23 17:58 AST 44 U/L (0-40) H 07/13/23 17:58 ALT 37 U/L (0-41) 07/13/23 17:58 Alkaline Phosphatase 110 U/L (40-130) 07/13/23 17:58 Total Protein 7.9 g/dL (6.6-8.7) 07/13/23 17:58 Albumin 5.2 g/dL (3.5-5.2) 07/13/23 17:58 Globulin 2.7 g/dL (1.3-4.6) 07/13/23 17:58 Urine Color Light yellow (Yellow) 07/13/23 17:58 Urine Appearance Clear (CLEAR) 07/13/23 17:58 Urine pH 5 (5-7) 07/13/23 17:58 Ur Specific [place] 1.015 (1.005-1.030) 07/13/23 17:58 Urine Protein Neg (Negative) 07/13/23 17:58 Urine Glucose (UA) 4+ (Normal) H 07/13/23 17:58 Urine Ketones 3+ (Negative) H 07/13/23 17:58 Urine Blood Neg (Negative) 07/13/23 17:58 Urine Nitrate Negative (Negative) 07/13/23 17:58 Urine Bilirubin Neg (Negative) 07/13/23 17:58 Urine Urobilinogen Neg mg/dL (Negative) 07/13/23 17:58 Ur Leukocyte Esterase Negative (Negative) 07/13/23 17:58 Serum Ketones Positive (Negative) H 07/13/23 17:58 All radiology interpretation(s) finalized by discharge Discharge Plan Discharge Patient Disposition: Admitted As Inpatient Clinical Impression: DKA (diabetic ketoacidosis) Condition: Stable Prescriptions: No Action albuterol sulfate 90 mcg/actuation HFA aerosol inhaler 2 puff INHALATION Q6H PRN (Reason: Shortness Of Breath Or Wheezing) acetaminophen 500 mg Tablet 1,000 mg PO Q6H PRN (Reason: Pain) pantoprazole 40 mg tablet,delayed release (DR/EC) 40 mg PO QAM ondansetron 4 mg tablet,disintegrating 4 mg PO Q6H PRN (Reason: Nausea And Vomiting) melatonin 5 mg Tablet 5 mg PO BEDTIME PRN (Reason: Sleep) carbamazepine 200 mg tablet 200 mg PO BID fluoxetine 10 mg capsule 10 mg PO DAILY Semglee(insulin glarg-yfgn)Pen 100 unit/mL (3 mL) insulin pen 40 unit SUBCUT .@NOON Qty: 15 0RF Humalog KwikPen Insulin 200 unit/mL (3 mL) insulin pen See Rx Instructions .ROUTE .COMPLEX Qty: 15 3RF Rx Instructions: sliding scale tid Reglan 10 mg tablet 10 mg PO Q6H PRN (Reason: nausea and vomiting) Qty: 30 0RF Referrals: Shay,Raquel, [facility]LE[facility] STRAIGHTENER STAMPER [Primary Care Provider] - Coding Level of Care Code ED Operating Room Coordinator for Wilmar Leroy
[2023-07-13 18:24] LABS: Ketone (Acetest) Serum Positive (Negative)
[2023-07-13 18:33] LABS: Alanine Aminotransferase 37 U/L (0-41); Albumin Level 5.2 g/dL (3.5-5.2); Alkaline Phosphatase 110 U/L (40-130); Anion Gap 24.5 (5-19); Aspartate Amino Transferase 44 U/L (0-40); Blood Urea Nitrogen 18 mg/dL (6-20); Calcium 9.7 mg/dL (8.5-10.5); Carbon Dioxide 20 mmol/L (22-29); Chloride 100 mmol/L (98-107); Creatinine Clr Calc Pharmacy 121.3833; Globulin 2.7 g/dL (1.3-4.6); Glomerular Filtration Rate 95.3 mL/min (90-130); Glucose 367 mg/dL (65-115); Osmolality Calculated 307 mOsm/kg (285-295); Potassium 4.5 mmol/L (3.5-5.1); Sodium 140 mmol/L (136-145); Total Bilirubin 0.9 mg/dL (0.15-1.2); Total Protein 7.9 g/dL (6.6-8.7)
[2023-07-13 19:15] LABS: Glucose Point of Care 267 mg/dL (70-110)
[2023-07-13] MEDS: metoclopramide 5 mg/mL SDV 2 mL 10 MG IVP (20:06)
--- NOTE | 2023-07-13 20:11 | P.HP_ITS ---
Providers/Chief Complaint 2 Primary Care Provider: Raquel Shay APN Chief Complaint: possible DKA N/V History of Present Illness Sourav Hsu is a 18 year old male with insulin-dependent diabetes, sees electronic maintenance supervisor at [facility], he was on insulin pump which was discontinued by the electronic maintenance supervisor because of seizure and hypoglycemic events, since discontinuation of insulin pump he is getting admitted almost every 60 days for DKA, presented today with chief, recurrent nausea vomiting. In the ER he has been diagnosed with DKA. Patient stating that he probably ate something bad which caused recurrent nausea vomiting, he missed 2 days of Lantus. He has not noticed any fever but he has been suffering from diarrhea muscle cramps fatigue and malaise. He came back from work around noon and since then he has been constantly vomiting. Patient endorses to THC and vaping He is on DKA protocol Added D5 normal saline with potassium supplementation along insulin drip Anion gap is 24 Patient is stating that he takes 35 units of Lantus along sliding scale He also had a recent appointment with electronic maintenance supervisor who is planning to put him back on insulin pump in July I am requesting CT abdomen pelvis without contrast Review of Systems 2 Const: Reports: chills, body aches, change in weight and fatigue; Denies: fever(s) Eyes: Denies: change in vision ENMT: Denies: throat pain Card: Denies: chest pain Resp: Denies: dyspnea GI: Reports: abdominal pain, nausea, vomiting and diarrhea : Denies: flank pain Musc: Denies: neck pain Skin/Breast: Denies: rash Neuro: Denies: headache(s) Psych: Reports: anxiety Medications/Allergies Home Medications Medication Instructions Recorded Confirmed Last Taken Type albuterol sulfate 90 mcg/actuation 2 puff inhalation Q6H PRN 12/12/22 06/09/23 Unknown History aerosol inhaler Shortness Of Breath Or Wheezing acetaminophen 500 mg tablet 1,000 mg PO Q6H PRN Pain 05/12/23 06/09/23 Unknown History melatonin 5 mg tablet 5 mg PO BEDTIME PRN Sleep 05/12/23 06/09/23 Unknown History ondansetron 4 mg disintegrating 4 mg PO Q6H PRN Nausea And Vomiting 05/12/23 06/09/23 Unknown History tablet pantoprazole 40 mg tablet,delayed 40 mg PO QAM 05/12/23 06/09/23 06/08/23 History release carbamazepine 200 mg tablet 200 mg PO BID 06/09/23 06/09/23 06/08/23 History fluoxetine 10 mg capsule 10 mg PO DAILY 06/09/23 06/09/23 06/08/23 History insulin glargine-yfgn 100 unit/mL 40 unit (0.4 mL) SUBCUT .@NOON #15 06/09/23 Unknown Rx (3 mL) subcutaneous pen (Semglee mL (insulin glargine-yfgn) Pen) insulin lispro 200 unit/mL (3 mL) See Rx Instructions .Route 06/09/23 Unknown Rx subcutaneous pen (Humalog KwikPen .COMPLEX #15 mL U-200 Insulin) metoclopramide HCl 10 mg tablet 10 mg PO Q6H PRN nausea and 06/20/23 Unknown Rx (Reglan) vomiting #30 tabs Allergies Allergy/AdvReac Type Severity Reaction Status Date / Time codeine Allergy Intermediate ADR-Nausea Verified 07/13/23 17:14 PFSH Acute 2 PFSH: Medical History MONICA (acute kidney injury) Transaminitis Leukocytosis Strep throat Cannabis hyperemesis syndrome concurrent with and due to cannabis abuse Intractable nausea and vomiting Diabetic ketoacidosis Type 1 diabetes Surgical History No significant past surgical history Family History Other Depression Social History Smoking and tobacco/nicotine status: never used tobacco/nicotine Alcohol intake: never Lives independently: Yes Household members: other Details: Fiancee Current occupational status: employed Vitals/I&O/Wt Last Vital Signs Temp 97.9 F 07/13/23 17:14 Pulse 78 07/13/23 18:16 Resp 22 H 07/13/23 17:14 BP 157/105 07/13/23 18:16 Pulse Ox 94 07/13/23 18:16 O2 Del Method Room Air 07/13/23 18:16 Weight last 48 hrs Weight 72.575 kg Physical Exam 2 Narrative: Patient is awake and alert GCS 15 Fatigue lethargic Nonfocal neuroexam abdomen soft Nontender peritonitis GCS 15 Currently on room air Hemodynamically stable Hypertensive Extremely dehydrated Dry mucous membranes Facial flushing Data 07/13/23 17:58 07/13/23 17:58 A&P Assessment and plan (1) DKA, type 1: (2) DKA (diabetic ketoacidosis): Qualifiers: Diabetes mellitus complication detail: without coma Diabetes mellitus type: type 1 Qualified Code(s): E10.10 - Type 1 diabetes mellitus with ketoacidosis without coma (3) Dehydration: (4) Tetrahydrocannabinol (THC) dependence: Plan DKA Did not take insulin for last 48 hours Gastroenteritis? Will request CT abdomen pelvis with IV contrast N.p.o. DKA protocol Start D5 normal saline with potassium supplementation Blood sugars is below 300 Patient is afebrile No need of antibiotics for now No active chest pain No sign of peritonitis on abdominal exam I do believe this is related to lapse of insulin use Full code DVT prophylaxis added THC dependence: It could also induce cyclical vomiting Patient counseled on cessation Vapes as well: Does not require oxygen I will request BMP every 4 hours to monitor his anion gap Once gap closes I will give him 35 units of Lantus along sliding scale and consistent carb diet Attestations 2 Medical Necessity Statement*: More than 2 midnights anticipated for management of DKA Diagnoses DKA, type 1 E10.10 DKA (diabetic ketoacidosis) E10.10 Diabetes mellitus complication detail: without coma Diabetes mellitus type: type 1 Dehydration E86.0 Tetrahydrocannabinol (THC) dependence F12.20
[2023-07-13 20:31] LABS: Glucose Point of Care 263 mg/dL (70-110)
[2023-07-13 20:42] LABS: Estmated Average Glucose 214; Hemoglobin A1C 9.1 % (4.0-6.0)
--- NOTE | 2023-07-13 20:43 | PC.NURSE ---
patient received from ER nurse patient reports no pain just feeling a little Nauseous
--- NOTE | 2023-07-13 20:45 | PC.NURSE ---
Pt's insulin drip was not started before transfer due to fluids ordered being unavailable. Pt's hospitalistwas notified and a request for alternate fluids was requested. Pt's BG upon transfer was 263.
--- NOTE | 2023-07-13 20:48 | CTR_ITS ---
PROCEDURE INFORMATION: Exam: CT Abdomen And Pelvis With Contrast Exam date and time: 07/14/2023 3:28 AM Age: 18 years old Clinical indication: Nausea and vomiting; Patient HX: N/v. Currently in dka. History of type 1 diabetes. Wearing external glucose monitor. ; Additional info: Vommiting TECHNIQUE: Imaging protocol: Computed tomography of the abdomen and pelvis with contrast. Radiation optimization: All CT scans at this facility use at least one of these dose optimization techniques: automated exposure control; mA and/or kV adjustment per patient size (includes targeted exams where dose is matched to clinical indication); or iterative reconstruction. Contrast material: OMNI 350; Contrast volume: 100 ml; Contrast route: INTRAVENOUS (IV); COMPARISON: CR (ABDOMEN, ) 06/09/2023 3:11 AM RADIATION DOSE METRICS: Total DLP (mGy-cm): 378.4 FINDINGS: Liver: Normal appearance of the liver. Gallbladder and bile ducts: No calcified stones or ductal dilation. Pancreas: No ductal dilation. Spleen: Unremarkable. Adrenal glands: Unremarkable. Kidneys and ureters: No hydronephrosis. Stomach and bowel: No obstruction. No mucosal thickening. Appendix: No evidence of appendicitis. Intraperitoneal space: No free air. No significant fluid collection. Vasculature: Unremarkable. Lymph nodes: No enlarged lymph nodes. Urinary bladder: Unremarkable as visualized. Reproductive: Unremarkable as visualized. Bones/joints: Unremarkable. No acute fracture. Soft tissues: Small foci of gas in the right abdominal wall, likely secondary to injection. CT/CT abdomen pelvis w con* [id number] IMPRESSION: No acute findings in the abdomen or pelvis.
[2023-07-13 21:12] LABS: Glucose Point of Care 309 mg/dL (70-110)
[2023-07-13] MEDS: dextrose 5% 1,000 ML 50 ML IV (21:26)
[2023-07-13] MEDS: INSULIN REGULAR IN 0.9 % NACL 100 UNIT/100 ML BAG 6.5 UNIT IV (21:26)
[2023-07-13] MEDS: enoxaparin 40 mg/0.4 mL Syringe SUBCUT (21:32)
[2023-07-13] MEDS: sodium chlor 0.9% + KCl 40 mEq 40 MEQ/1,000 ML BAG 50 MEQ IV (21:46)
[2023-07-13 22:21] LABS: Glucose Point of Care 257 mg/dL (70-110)
[2023-07-13 23:06] LABS: Glucose Point of Care 203 mg/dL (70-110)
[2023-07-13 23:46] LABS: Anion Gap 23.5 (5-19); Blood Urea Nitrogen 16 mg/dL (6-20); Carbon Dioxide 19 mmol/L (22-29); Chloride 102 mmol/L (98-107); Creatinine Clr Calc Pharmacy 147.5708; Glomerular Filtration Rate 123.2 mL/min (90-130); Glucose 253 mg/dL (65-115); Osmolality Calculated 300 mOsm/kg (285-295); Potassium 4.5 mmol/L (3.5-5.1); Sodium 140 mmol/L (136-145)
[2023-07-14] VITALS (21 sets, daily range): BP systolic 103–150; BP diastolic 52–87; PULSE 50–102; RESP 10–21; TEMP 37.3; O2SAT 96–100
[2023-07-14 00:22] LABS: Glucose Point of Care 182 mg/dL (70-110)
[2023-07-14 01:13] LABS: Glucose Point of Care 144 mg/dL (70-110)
--- NOTE | 2023-07-14 01:26 | PC.NURSE ---
spoke with provider about patient BG of 144 at this time on 1unit/hr of insulin instructions to keep all dextrose containing fluids the same and titrate insulin to 0.5 unit/hr and call with anion gap results
[2023-07-14 02:13] LABS: Anion Gap 17.3 (5-19); Blood Urea Nitrogen 15 mg/dL (6-20); Calcium 8.8 mg/dL (8.5-10.5); Carbon Dioxide 23 mmol/L (22-29); Chloride 105 mmol/L (98-107); Creatinine Clr Calc Pharmacy 147.5708; Glomerular Filtration Rate 123.2 mL/min (90-130); Glucose 138 mg/dL (65-115); Osmolality Calculated 295 mOsm/kg (285-295); Potassium 4.3 mmol/L (3.5-5.1); Sodium 141 mmol/L (136-145)
[2023-07-14 02:25] LABS: Glucose Point of Care 157 mg/dL (70-110)
[2023-07-14 03:18] LABS: Glucose Point of Care 204 mg/dL (70-110)
[2023-07-14] MEDS: iohexol 350 mg/mL 500 mL Btl (per mL) IV (03:29)
[2023-07-14 04:20] LABS: Glucose Point of Care 250 mg/dL (70-110)
[2023-07-14 05:29] LABS: Glucose Point of Care 273 mg/dL (70-110)
[2023-07-14 05:41] LABS: Basophils # 0.1 10^3/uL (0.0-0.1); Basophils % 0.6 %; Eosinophils % 0.1 %; Hematocrit 43.6 % (37-53); Lymphocytes # 1.1 10^3/uL (1.5-6.5); Lymphocytes % 10.4 %; Mean Corpuscular HGB Conc 32.6 g/dL (30-55); Mean Corpuscular Hemoglobin 29.9 pg (27-33); Mean Corpuscular Volume 91.8 fl (82-101); Mean Platelet Volume 10.2 fL (7.4-10.4); Monocytes # 0.6 10^3/uL (0.2-0.9); Monocytes % 5.6 %; Neutrophils # 8.71 10^3/uL (1.8-8.0); Neutrophils % 82.7 %; Nucleated Red Blood Cells % 0 %; Platelet Count 229 10^3/cmm (157-399); Red Blood Count 4.75 10^6/uL (3.85-5.65); Red Cell Distribution Width 13.1 % (12.1-15.1); White Blood Count 10.53 10^3/uL (4.5-13.0)
[2023-07-14 06:03] LABS: Anion Gap 23.9 (5-19); Blood Urea Nitrogen 14 mg/dL (6-20); Calcium 8.5 mg/dL (8.5-10.5); Carbon Dioxide 18 mmol/L (22-29); Chloride 101 mmol/L (98-107); Creatinine Clr Calc Pharmacy 131.1741; Glomerular Filtration Rate 107.6 mL/min (90-130); Glucose 270 mg/dL (65-115); Magnesium 1.7 mg/dL (1.7-2.3); Osmolality Calculated 296 mOsm/kg (285-295); Phosphorus 3.6 mg/dL (2.5-4.5); Potassium 4.9 mmol/L (3.5-5.1); Sodium 138 mmol/L (136-145)
[2023-07-14 06:37] LABS: Glucose Point of Care 231 mg/dL (70-110)
[2023-07-14] MEDS: insulin glargine 100 units/1 mL 35 UNIT SUBCUT (06:42)
[2023-07-14 07:24] LABS: Glucose Point of Care 225 mg/dL (70-110)
[2023-07-14 08:29] LABS: Glucose Point of Care 192 mg/dL (70-110)
--- NOTE | 2023-07-14 08:50 | PC.PHAR ---
pt states he takes care of his own medications-pt states he is still taking carbamazepine 200mg bid ext shows last filled 05/20/23 21d/s-pantoprazole 40mg qd filled 05/08/23 21d/s-medications entered are what the pt states he takes and what ext shows has been filled pt states not taking prilosec 20mg daily filled 05/01/23 21d/s
[2023-07-14 09:15] LABS: Glucose Point of Care 208 mg/dL (70-110)
--- NOTE | 2023-07-14 09:24 | PC.NURSE ---
Informed that patient was planning on leaving by noon to go to work. Spoke with patient and confirmed that was his plan. Called Dr. Duffy to update and inform him of this. Orders for stat BMP and to stop NS with 40KCL and increase D5NS to 125ml/hr. Dr. Duffy stated he would be here soon to see him.
[2023-07-14 09:56] LABS: Anion Gap 19.4 (5-19); Blood Urea Nitrogen 14 mg/dL (6-20); Carbon Dioxide 19 mmol/L (22-29); Chloride 103 mmol/L (98-107); Creatinine Clr Calc Pharmacy 147.5708; Glomerular Filtration Rate 123.2 mL/min (90-130); Glucose 193 mg/dL (65-115); Osmolality Calculated 290 mOsm/kg (285-295); Potassium 4.4 mmol/L (3.5-5.1); Sodium 137 mmol/L (136-145)
[2023-07-14 10:42] LABS: Glucose Point of Care 165 mg/dL (70-110)
[2023-07-14 11:20] LABS: Glucose Point of Care 149 mg/dL (70-110)
--- NOTE | 2023-07-14 11:21 | PM.DCS ---
Discharge Providers Date of Admission: 07/13/23 19:21 Date of Discharge: July 14, 2023 Attending Provider at Admission: Carmelina Kirk MD Attending Provider at Discharge: Elvis Duffy MD Primary Care Provider: Raquel Shay APN Diagnoses at Discharge Discharge Diagnosis (1) DKA, type 1: Status: Acute (2) DKA (diabetic ketoacidosis): Status: Acute Qualifiers: Diabetes mellitus complication detail: without coma Diabetes mellitus type: type 1 Qualified Code(s): E10.10 - Type 1 diabetes mellitus with ketoacidosis without coma (3) Dehydration: Status: Acute (4) Tetrahydrocannabinol (THC) dependence: Status: Acute (5) Hypoglycemia associated with diabetes: Status: Acute Reason for Visit Reason for Visit: possible DKA N/V Brief History: History as per HPI: Sourav Hsu is a 18 year old male with insulin-dependent diabetes, sees equal opportunity representative at [place], he was on insulin pump which was discontinued by the equal opportunity representative because of seizure and hypoglycemic events, since discontinuation of insulin pump he is getting admitted almost every 60 days for DKA, presented today with chief, recurrent nausea vomiting. In the ER he has been diagnosed with DKA. Patient stating that he probably ate something bad which caused recurrent nausea vomiting, he missed 2 days of Lantus. He has not noticed any fever but he has been suffering from diarrhea muscle cramps fatigue and malaise. He came back from work around noon and since then he has been constantly vomiting. Patient endorses to THC and vaping Hospital Course Hospital Course Patient was admitted to the hospital further evaluation and management of DKA. He was admitted to ICU as per DKA protocol. 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 He is otherwise very regular with his blood sugar checks, long-acting insulin and Humalog premeals. He states he has blood glucose level below 100 requiring supplementation of sugar at least once or twice a week. Usually blood sugars range between 200-300. Patient responded to the treatment and has anion gap closed. He will have done better with further hydration and monitoring once the diet was started but he was adamant on discharge because he had to work today. For safe discharge planning he was advised to take Lantus 20 units twice daily and he was recommended to take sliding scale 3 times a day before each meal. He was told that for him given his episodes of hypoglycemia at home his target blood sugar fasting should be around 140 and Premeal should be around 180. Physical Exam Narrative: General: No acute distress, AO x3, thin built HEENT: PERRLA, pupils bilaterally equal and reactive Chest: Normal vesicular breath sounds, no added sounds, equal good air entry bilaterally CVS: S1-S2 regular, no murmurs, no tachycardia, no gallops, no rubs Abdomen: Soft, nontender, no organomegaly, bowel sounds present Neuro: No focal deficits, no facial deformity, AO x3, power 5/5 in all limbs Discharge Data Studies Completed and Pending Completed Studies During Hospitalization Category Date Time Status CT abdomen pelvis w con* [id number] Routine Cat Scan 07/13/23 20:48 Completed Pending at discharge Category Date Time Status BMP [Basic Metabolic Panel] Q4H Lab 07/14/23 13:03 Ordered BMP [Basic Metabolic Panel] Stat Lab 07/14/23 11:13 Ordered Radiology Impressions Abdomen/Pelvis CT 07/13/23 20:48 IMPRESSION: No acute findings in the abdomen or pelvis. Laboratory Results WBC 10.53 10^3/uL (4.5-13.0) 07/14/23 04:34 RBC 4.75 10^6/uL (3.85-5.65) 07/14/23 04:34 Hgb 14.20 g/dL (13.2-15.6) 07/14/23 04:34 Hct 43.6 % (37-53) 07/14/23 04:34 MCV 91.8 fl (82-101) D 07/14/23 04:34 MCH 29.9 pg (27-33) 07/14/23 04:34 MCHC 32.6 g/dL (30-55) D 07/14/23 04:34 RDW 13.1 % (12.1-15.1) 07/14/23 04:34 Plt Count 229 10^3/cmm (157-399) 07/14/23 04:34 MPV 10.2 fL (7.4-10.4) 07/14/23 04:34 Neut % (Auto) 82.7 % 07/14/23 04:34 Lymph % (Auto) 10.4 % 07/14/23 04:34 [place] % (Auto) 5.6 % 07/14/23 04:34 Eos % (Auto) 0.1 % 07/14/23 04:34 Baso % (Auto) 0.6 % 07/14/23 04:34 Neut # (Auto) 8.71 10^3/uL (1.8-8.0) H 07/14/23 04:34 Lymph # (Auto) 1.1 10^3/uL (1.5-6.5) L 07/14/23 04:34 [place] # (Auto) 0.6 10^3/uL (0.2-0.9) 07/14/23 04:34 Eos # (Auto) 0.0 10^3/uL (0.0-0.8) 07/14/23 04:34 Baso # (Auto) 0.1 10^3/uL (0.0-0.1) 07/14/23 04:34 Nucleated RBC % (auto) 0 % 07/14/23 04:34 Nucleated RBCs # 0.0 /100WBC 07/14/23 04:34 Specimen Type Arterial 07/13/23 18:05 Sample Site Brachial, left 07/13/23 18:05 ABG pH 7.37 (7.35-7.45) 07/13/23 18:05 ABG pCO2 36.4 mmHg (35-45) 07/13/23 18:05 ABG pO2 78.3 mmHg (80.0-100.0) L 07/13/23 18:05 ABG PO2/FiO2 Ratio 0 07/13/23 18:05 ABG HCO3 21.1 mmol/L (22-26) L 07/13/23 18:05 ABG O2 Saturation 96.3 07/13/23 18:05 ABG Base Excess -3.6 mmol/L (-2.0-2.0) L 07/13/23 18:05 Steven Test N/a 07/13/23 18:05 A-a O2 Gradient 3.4 mmHg (5-10) L 07/13/23 18:05 Hematocrit 48.5 % (42-52) 07/13/23 18:05 Hgb O2 Saturation 95.1 % (95-100) 07/13/23 18:05 Carboxyhemoglobin 1.0 %THgb (0.4-20.1) 07/13/23 18:05 Methemoglobin 0.3 % (0.4-1.5) L 07/13/23 18:05 Total Hemoglobin 15.8 g/dL (14-18) 07/13/23 18:05 Sodium 142.0 mmol/L (131-143) 07/13/23 18:05 Potassium 4.0 mmol/L (3.5-5.0) 07/13/23 18:05 Glucose 322.0 mg/dL (70-115) H 07/13/23 18:05 Ionized Calcium 1.3 mmol/L (1.1-1.4) 07/13/23 18:05 O2 Delivery Device Room air 07/13/23 18:05 FiO2 21.0 % 07/13/23 18:05 Java Software Architect ID Amh 07/13/23 18:05 Sodium 137 mmol/L (136-145) 07/14/23 09:17 Potassium 4.4 mmol/L (3.5-5.1) 07/14/23 09:17 Chloride 103 mmol/L (98-107) 07/14/23 09:17 Carbon Dioxide 19 mmol/L (22-29) L 07/14/23 09:17 Anion Gap 19.4 (5-19) H 07/14/23 09:17 BUN 14 mg/dL (6-20) 07/14/23 09:17 Creatinine 0.8 mg/dL (0.7-1.2) 07/14/23 09:17 GFR Calculation 123.2 mL/min (90-130) 07/14/23 09:17 Glucose 193 mg/dL (65-115) H 07/14/23 09:17 POC Glucose 149 mg/dL (70-110) H 07/14/23 11:17 Estimat Average Glucose 214 07/13/23 17:58 Hemoglobin A1c 9.1 % (4.0-6.0) H 07/13/23 17:58 Calculated Osmolality 290 mOsm/kg (285-295) 07/14/23 09:17 Calcium 9.0 mg/dL (8.5-10.5) 07/14/23 09:17 Phosphorus 3.6 mg/dL (2.5-4.5) 07/14/23 04:34 Magnesium 1.7 mg/dL (1.7-2.3) 07/14/23 04:34 Total Bilirubin 0.9 mg/dL (0.15-1.2) 07/13/23 17:58 AST 44 U/L (0-40) H 07/13/23 17:58 ALT 37 U/L (0-41) 07/13/23 17:58 Alkaline Phosphatase 110 U/L (40-130) 07/13/23 17:58 C-Reactive Protein 3.0 mg/L (0.0-4.9) 07/14/23 04:34 Total Protein 7.9 g/dL (6.6-8.7) 07/13/23 17:58 Albumin 5.2 g/dL (3.5-5.2) 07/13/23 17:58 Globulin 2.7 g/dL (1.3-4.6) 07/13/23 17:58 Urine Color Light yellow (Yellow) 07/13/23 17:58 Urine Appearance Clear (CLEAR) 07/13/23 17:58 Urine pH 5 (5-7) 07/13/23 17:58 Ur Specific [place] 1.015 (1.005-1.030) 07/13/23 17:58 Urine Protein Neg (Negative) 07/13/23 17:58 Urine Glucose (UA) 4+ (Normal) H 07/13/23 17:58 Urine Ketones 3+ (Negative) H 07/13/23 17:58 Urine Blood Neg (Negative) 07/13/23 17:58 Urine Nitrate Negative (Negative) 07/13/23 17:58 Urine Bilirubin Neg (Negative) 07/13/23 17:58 Urine Urobilinogen Neg mg/dL (Negative) 07/13/23 17:58 Ur Leukocyte Esterase Negative (Negative) 07/13/23 17:58 Serum Ketones Positive (Negative) H 07/13/23 17:58 Vitals Last Vital Signs Temp 99.2 F 07/14/23 03:46 Pulse 99 07/14/23 09:00 Resp 17 07/14/23 09:00 BP 110/61 07/14/23 09:00 Pulse Ox 100 07/14/23 09:00 O2 Del Method Room Air 07/14/23 09:00 Discharge Plan Discharge Patient Disposition: Home Condition: Stable Prescriptions: Continued albuterol sulfate 90 mcg/actuation HFA aerosol inhaler 2 puff INHALATION Q6H PRN (Reason: Shortness Of Breath Or Wheezing) acetaminophen 500 mg Tablet 1,000 mg PO Q6H PRN (Reason: Pain) pantoprazole 40 mg tablet,delayed release (DR/EC) 40 mg PO QAM ondansetron 4 mg tablet,disintegrating 4 mg PO Q6H PRN (Reason: Nausea And Vomiting) melatonin 5 mg Tablet 5 mg PO BEDTIME PRN (Reason: Sleep) carbamazepine 200 mg tablet 200 mg PO BID fluoxetine 10 mg capsule 10 mg PO DAILY Humalog KwikPen Insulin 200 unit/mL (3 mL) insulin pen See Rx Instructions .ROUTE .COMPLEX Qty: 15 3RF Rx Instructions: sliding scale tid metoclopramide HCl [Reglan] 10 mg tablet 10 mg PO Q6H PRN (Reason: nausea and vomiting) Qty: 30 0RF Changed Semglee(insulin glarg-yfgn)Pen 100 unit/mL (3 mL) insulin pen 20 unit SUBCUT BID Qty: 15 0RF Discharge Orders: Discharge Order (Routine); Ordered 07/14/23 Ordered By: Elvis Duffy Referrals: Raquel Shay APN [Primary Care Provider] - 7-10 days Discharge Diet: Diabetic Discharge Activity: Resume usual activity and Increase activity as tolerated Patient Instructions: Dehydration - Adult, Diabetic Ketoacidosis (DC), Opioid Safety Activity Restrictions/Additional Instructions: Take long-acting insulin 20 units twice daily. Usually with taking your short acting insulin/Humalog twice daily as per the sliding scale. For you Target blood glucose fasting should be less than 140, Premeal should be less than 180. Discharge Attestations Time Spent in Discharge Care*: greater than 30 min Specific Discharge Activities: educating patient, discussing with pcp/other providers, discussing with family independence case manager/social workers/dc planners, documenting/other paperwork and evaluating patient/reviewing data Status at Discharge: Cognitive status at discharge: cognitively intact, Behavioral status at discharge: cooperative, Functional status at discharge: independent ambulation, Overall status at discharge: patient is back to baseline Quality Metrics Clinical Quality Measures [ No reported AMI, CVA or VTE this stay] Coding Level of Care Code 37685 Total time (in minutes) for Discharge: 60 Diagnoses DKA, type 1 E10.10 DKA (diabetic ketoacidosis) E10.10 Diabetes mellitus complication detail: without coma Diabetes mellitus type: type 1 Dehydration E86.0 Tetrahydrocannabinol (THC) dependence F12.20 Hypoglycemia associated with diabetes E11.649
[2023-07-14 12:14] LABS: Glucose Point of Care 155 mg/dL (70-110)
[2023-07-14 12:15] LABS: Blood Urea Nitrogen 13 mg/dL (6-20); Calcium 8.9 mg/dL (8.5-10.5); Chloride 102 mmol/L (98-107); Creatinine Clr Calc Pharmacy 147.5708; Glomerular Filtration Rate 123.2 mL/min (90-130); Osmolality Calculated 286 mOsm/kg (285-295); Sodium 136 mmol/L (136-145)
[2023-07-14 12:17] LABS: Carbon Dioxide 19 mmol/L (22-29); Glucose 168 mg/dL (65-115)
== END 2023-07-14 12:45 | disposition home or self-care (01) | DRG 639 ==
LOC: ER 19:24 → ICU 20:11
PROVIDERS: Admitting Provider Internal Medicine; Emergency Provider Emergency Medicine; PCP Nurse Practitioner Family; Visit Provider Student in an Organized Health Care Education/Training Program
DX: E10.10 Type 1 diabetes mellitus with ketoacidosis without coma (principal); Z79.4 Long term (current) use of insulin; E86.0 Dehydration; F12.20 Cannabis dependence, uncomplicated
CPT/HCPCS: 36415; 36416; 36600; 74177; 80048; 80051; 80053; 81003; 82009; 82330; 82805; 82962; 83036; 83735; 84100; 85025; 86140; 96365; 96366; 96367; 96372; 96375; 96376; 99285; J1650; J1815; J2405; J2765; J7030; J7070; Q9967

== ENCOUNTER 2023-11-26 21:19 | Emergency (ER) | payer OTHER, SELFPAY ==
[2023-11-26 21:23] VITALS: BP 161/102; PULSE 72; RESP 20; TEMP 36.3; O2SAT 99
[2023-11-26 23:01] LABS: Basophils # 0.1 10^3/uL (0.0-0.1); Basophils % 0.5 %; Eosinophils # 0.1 10^3/uL (0.0-0.8); Eosinophils % 0.3 %; Hematocrit 42.8 % (37-53); Lymphocytes # 1.2 10^3/uL (1.5-6.5); Lymphocytes % 6.2 %; Mean Corpuscular HGB Conc 34.8 g/dL (30-55); Mean Corpuscular Hemoglobin 30.2 pg (27-33); Mean Corpuscular Volume 86.6 fl (82-101); Mean Platelet Volume 9.2 fL (7.4-10.4); Monocytes # 1.3 10^3/uL (0.2-0.9); Monocytes % 7.2 %; Neutrophils # 15.77 10^3/uL (1.8-8.0); Neutrophils % 84.8 %; Nucleated Red Blood Cells % 0 %; Platelet Count 293 10^3/cmm (157-399); Red Blood Count 4.94 10^6/uL (3.85-5.65); Red Cell Distribution Width 11.9 % (12.1-15.1)
[2023-11-26 23:07] LABS: Glucose Point of Care 200 mg/dL (70-110)
[2023-11-26 23:14] LABS: Ketone (Acetest) Serum Negative (Negative)
[2023-11-26] MEDS: sodium chloride 0.9% 1,000 ML 999 ML IV (23:14)
[2023-11-26] MEDS: ondansetron 2 mg/ML SDV 2 mL 4 MG IVP (23:16)
[2023-11-26 23:22] LABS: Alanine Aminotransferase 27 U/L (0-41); Albumin Level 4.8 g/dL (3.5-5.2); Alkaline Phosphatase 74 U/L (40-130); Anion Gap 19.5 (5-19); Aspartate Amino Transferase 30 U/L (0-40); Blood Urea Nitrogen 21 mg/dL (6-20); Carbon Dioxide 22 mmol/L (22-29); Chloride 105 mmol/L (98-107); Creatinine Clr Calc Pharmacy 121.3833; Glomerular Filtration Rate 95.3 mL/min (90-130); Glucose 224 mg/dL (65-115); Osmolality Calculated 304 mOsm/kg (285-295); Potassium 4.5 mmol/L (3.5-5.1); Sodium 142 mmol/L (136-145); Total Bilirubin 0.7 mg/dL (0.15-1.2); Total Protein 7.8 g/dL (6.6-8.7)
--- NOTE | 2023-11-26 23:37 | W.ED.NAVMDI ---
HPI - Nausea/Vomiting/Diarrhea General: Chief complaint: Nausea/Vomiting/Diarrhea Stated complaint: Vomiting\Rt Arm Time Seen by Provider: 11/26/23 22:40 Source: patient Mode of arrival: ambulatory Limitations: no limitations History of Present Illness: Patient presents emergency department today for evaluation treatment of lightheadedness and vomiting. Patient had an injury to his right arm. He states that they prescribed him tramadol. He takes 2, 50 mg tramadol for his pain. He states that when he started taking the medication today, he started feeling loopy . He also then began vomiting. Patient is concerned as he has had similar symptoms in the past which were found to be DKA. Patient is a type I diabetic. He has not been running fevers. He has no other pains except in his abdomen when he vomits. He feels queasy and is extremely drowsy. Patient has had an adverse reaction to codeine in the past-indicates nausea in his chart. Review of Systems General: Reports: 10 or more systems reviewed and unremarkable except in HPI and below PFSH ED PFSH: Medical History (Updated 11/27/23 @ 00:59 by CODY Ochoa) Hypoglycemia associated with diabetes Tetrahydrocannabinol (THC) dependence MONICA (acute kidney injury) Transaminitis Leukocytosis Strep throat Cannabis hyperemesis syndrome concurrent with and due to cannabis abuse Intractable nausea and vomiting Diabetic ketoacidosis Type 1 diabetes Surgical History No significant past surgical history Family History Other Depression Social History Smoking and tobacco/nicotine status: never used tobacco/nicotine Alcohol intake: never Lives independently: Yes Household members: other Details: Fiancee Current occupational status: employed Physical Exam Const: COMMON NORMALS: patient oriented x3 GENERAL APPEARANCE: lethargic ORIENTATION/CONSCIOUSNESS: Yes lethargic HENMT: COMMON NORMALS: normocephalic, atraumatic, hearing grossly normal bilaterally and moist oral mucous membranes HEAD & SCALP: normocephalic and atraumatic Eye: COMMON NORMALS: Equal, round and reactive pupils present, EOMs intact bilaterally and conjunctivae normal CONJUNCTIVA: Yes conjunctivae normal PUPIL: Yes Equal, round and reactive pupils present Neck/C-Spine: COMMON NORMALS: full ROM and no JVD Lymph: LYMPHATIC: no lymphadenopathy noted Resp: COMMON NORMALS: normal respiratory effort, No retractions, No use of accessory muscles and clear to auscultation bilaterally AUSCULTATION: clear to auscultation bilaterally Cardio: COMMON NORMALS: no JVD, regular rate and regular rhythm RATE: regular rate RHYTHM: regular rhythm GI: OTHER: Abdomen is soft. Nontender on palpation. : COMMON NORMALS: Yes no CVA tenderness BLADDER/KIDNEY EXAM: Yes no CVA tenderness Back/Pelvis: COMMON NORMALS: no CVA tenderness, no thoracic nor lumbar tenderness and thoraco-lumbar ROM normal Extremity: COMMON NORMALS: normal to inspection, full ROM and capillary refill normal Neuro: COMMON NORMALS: patient oriented x3 SENSORIUM/ORIENTATION: Yes lethargic Psych: COMMON NORMALS: mental status grossly normal, Normal thought process present, cooperative, normal affect and activity/motor behavior normal THOUGHT PROCESS: Normal thought process present Skin: COMMON NORMALS: no rashes or lesions noted and no wounds GENERAL SKIN EXAM: no rashes or lesions noted Course Vital Signs: Vital signs: Vital Signs Temperature 97.4 F L 11/26/23 21:23 Pulse Rate 57 L 11/27/23 00:31 Respiratory Rate 18 11/27/23 00:31 Blood Pressure 162/89 11/27/23 00:31 Pulse Oximetry 100 11/27/23 00:31 Oxygen Delivery Me thod Room Air 11/26/23 21:23 MDM - Nausea/Vomiting/Diarrhea Medical Decision Making Patient presents to the emergency department today for concerns of vomiting and feeling loopy with concerns of either DKA or medication reaction. Patient was extremely drowsy in the room but was answering his own history. He was actively dry heaving on his initial evaluation. Patient's POC glucose was in the 200s. Lab work shows no ketones in the blood, no significant anion gap. Does have an elevated white blood cell count the patient has been actively vomiting throughout the day. Patient was treated with fluids and antinausea medication. Upon my arrival back to the room, patient was more alert and only began getting nauseated again and starting to dry heave when I had him talking and then his fianc?e coming into the room. Explained to him that not seeing signs of DKA and would suspect this is medication reaction. His chart indicated a nausea reaction to codeine. His fianc?e also states he does not typically respond well to Zofran and does better with Phenergan. I did place a second antinausea medicine order for him for Phenergan here in the ER. Beatriz patient is more alert, I did ask him what happened to his hand. Patient states he punched a wall and got a boxer's fracture. This happened 2 to 3 days ago but states he did not start taking the Ultram until today when his symptoms started. At this time, I did discuss the case with Dr. Morrow. Explained that I do not think this is DKA related and would like to observe the patient a bit longer to see if his nausea and vomiting improve with Phenergan and also provide another 500 cc bag of fluid. We can continue to monitor the patient and if nausea and vomiting significantly improved, should be able to discharge home with instructions to not take any more Phenergan. However, if patient's nausea and vomiting is not able to be controlled then, appropriate intervention can be initiated by Dr. Morrow if necessary. Transfer of care at 0100. Differential Diagnosis Likely drug-induced nausea and vomiting; Unlikely traveler's diarrhea, food poisoning, gastroenteritis, clostridium difficile infection or dehydration Lab Data 11/26/23 22:54 11/26/23 22:54 Laboratory Results WBC 18.60 10^3/uL (4.5-13.0) H 11/26/23 22:54 RBC 4.94 10^6/uL (3.85-5.65) 11/26/23 22:54 Hgb 14.90 g/dL (13.2-15.6) 11/26/23 22:54 Hct 42.8 % (37-53) 11/26/23 22:54 MCV 86.6 fl (82-101) 11/26/23 22:54 MCH 30.2 pg (27-33) 11/26/23 22:54 MCHC 34.8 g/dL (30-55) 11/26/23 22:54 RDW 11.9 % (12.1-15.1) L 11/26/23 22:54 Plt Count 293 10^3/cmm (157-399) 11/26/23 22:54 MPV 9.2 fL (7.4-10.4) 11/26/23 22:54 Neut % (Auto) 84.8 % 11/26/23 22:54 Lymph % (Auto) 6.2 % 11/26/23 22:54 [place] % (Auto) 7.2 % 11/26/23 22:54 Eos % (Auto) 0.3 % 11/26/23 22:54 Baso % (Auto) 0.5 % 11/26/23 22:54 Neut # (Auto) 15.77 10^3/uL (1.8-8.0) H 11/26/23 22:54 Lymph # (Auto) 1.2 10^3/uL (1.5-6.5) L 11/26/23 22:54 [place] # (Auto) 1.3 10^3/uL (0.2-0.9) H 11/26/23 22:54 Eos # (Auto) 0.1 10^3/uL (0.0-0.8) 11/26/23 22:54 Baso # (Auto) 0.1 10^3/uL (0.0-0.1) 11/26/23 22:54 Nucleated RBC % (auto) 0 % 11/26/23 22:54 Nucleated RBCs # 0.0 /100WBC 11/26/23 22:54 Sodium 142 mmol/L (136-145) 11/26/23 22:54 Potassium 4.5 mmol/L (3.5-5.1) 11/26/23 22:54 Chloride 105 mmol/L (98-107) 11/26/23 22:54 Carbon Dioxide 22 mmol/L (22-29) 11/26/23 22:54 Anion Gap 19.5 (5-19) H 11/26/23 22:54 BUN 21 mg/dL (6-20) H 11/26/23 22:54 Creatinine 1.0 mg/dL (0.7-1.2) 11/26/23 22:54 GFR Calculation 95.3 mL/min (90-130) 11/26/23 22:54 Glucose 224 mg/dL (65-115) H 11/26/23 22:54 POC Glucose 183 mg/dL (70-110) H 11/27/23 00:10 Calculated Osmolality 304 mOsm/kg (285-295) H 11/26/23 22:54 Calcium 10.0 mg/dL (8.5-10.5) 11/26/23 22:54 Total Bilirubin 0.7 mg/dL (0.15-1.2) 11/26/23 22:54 AST 30 U/L (0-40) 11/26/23 22:54 ALT 27 U/L (0-41) 11/26/23 22:54 Alkaline Phosphatase 74 U/L (40-130) 11/26/23 22:54 Total Protein 7.8 g/dL (6.6-8.7) 11/26/23 22:54 Albumin 4.8 g/dL (3.5-5.2) 11/26/23 22:54 Globulin 3.0 g/dL (1.3-4.6) 11/26/23 22:54 Urine Color Yellow (Yellow) 11/27/23 00:20 Urine Appearance Clear (CLEAR) 11/27/23 00:20 Urine pH 5.5 (5-7) 11/27/23 00:20 Ur Specific [place] 1.032 (1.005-1.030) H 11/27/23 00:20 Urine Protein 1+ (Negative) A 11/27/23 00:20 Urine Glucose (UA) 3+ (Normal) H 11/27/23 00:20 Urine Ketones 3+ (Negative) H 11/27/23 00:20 Urine Blood Non-haemolysed trace (Negative) 11/27/23 00:20 Urine Nitrate Negative (Negative) 11/27/23 00:20 Urine Bilirubin Negative (Negative) 11/27/23 00:20 Urine Urobilinogen 1.0 mg/dL (Negative) 11/27/23 00:20 Ur Leukocyte Esterase Negative (Negative) 11/27/23 00:20 Urine RBC 0-2 /hpf (0-2) 11/27/23 00:20 Urine WBC 0-5 /hpf (0-5) 11/27/23 00:20 Ur Squamous Epith Cells 0-5 /hpf (0-5) 11/27/23 00:20 Amorphous Sediment Not Reportable 11/27/23 00:20 Urine Bacteria None seen /hpf (NONE) 11/27/23 00:20 Hyaline Casts 0-4 /lpf H 11/27/23 00:20 Serum Ketones Negative (Negative) 11/26/23 22:54 No radiology studies performed this visit Discharge Plan Discharge Patient Disposition: Home Clinical Impression: Medication adverse effect, Vomiting Condition: Stable Prescriptions: New promethazine 25 mg tablet 25 mg PO Q6H PRN (Reason: nausea and vomiting) Qty: 20 0RF No Action albuterol sulfate 90 mcg/actuation HFA aerosol inhaler 2 puff INHALATION Q6H PRN (Reason: Shortness Of Breath Or Wheezing) acetaminophen 500 mg Tablet 1,000 mg PO Q6H PRN (Reason: Pain) pantoprazole 40 mg tablet,delayed release (DR/EC) 40 mg PO QAM ondansetron 4 mg tablet,disintegrating 4 mg PO Q6H PRN (Reason: Nausea And Vomiting) melatonin 5 mg Tablet 5 mg PO BEDTIME PRN (Reason: Sleep) carbamazepine 200 mg tablet 200 mg PO BID fluoxetine 10 mg capsule 10 mg PO DAILY Humalog KwikPen Insulin 200 unit/mL (3 mL) insulin pen See Rx Instructions .ROUTE .COMPLEX Qty: 15 3RF Rx Instructions: sliding scale tid metoclopramide HCl [Reglan] 10 mg tablet 10 mg PO Q6H PRN (Reason: nausea and vomiting) Qty: 30 0RF Semglee(insulin glarg-yfgn)Pen 100 unit/mL (3 mL) insulin pen 20 unit SUBCUT BID Qty: 15 0RF Discharge Orders: Discharge ED (Routine); Ordered 11/27/23 Ordered By: Rosana Meek Referrals: Raquel Shay APN [Primary Care Provider] - Discharge Diet: Advance as tolerated Discharge Activity: Increase activity as tolerated Patient Instructions: General Allergic Reaction (ED) Activity Restrictions/Additional Instructions: On evaluation today, your symptoms do not seem related to any concerns regarding DKA. Your blood sugars are not significantly elevated and your blood ketones were negative. Your anion gap was normal. For that reason, I do think you are having a reaction to the Ultram/tramadol. Unfortunately, you have the potential for feeling nauseated and drowsy until all the medication has gotten out of your system. We did provide you a fluid flush here in the ER as well as antinausea medication and, I provided you antinausea medication to your pharmacy to be picked up and taken as needed over the next day or so. Unfortunately, if you are having nausea and vomiting related to Ultram, you also have noted nausea and vomiting due to use of codeine. Codeine is somewhat of an umbrella term for the other narcotic medications that can be prescribed such as hydrocodone. If at all possible, you may wish to stick with using Tylenol and ibuprofen for your pain. Coding Level of Care Code ED Railway Signal Electrician for Wilmar Leroy
[2023-11-27] VITALS (24 sets, daily range): BP systolic 146–162; BP diastolic 89–100; PULSE 44–103; RESP 16–18; O2SAT 93–100
[2023-11-27 00:14] LABS: Glucose Point of Care 183 mg/dL (70-110)
[2023-11-27 00:24] LABS: Charge for UA Resulting for Rev
[2023-11-27 00:27] LABS: Bilirubin Urine Negative (Negative); Blood Urine Non-haemolysed trace (Negative); Glucose Urine UA 3+ (Normal); Ketones Urine 3+ (Negative); Leukocyte Esterase Urine Negative (Negative); Nitrate Urine Negative (Negative); Protein Urine 1+ (Negative); Urine Appearance Clear (CLEAR); Urine Color Yellow (Yellow); pH Urine 5.5 (5-7)
[2023-11-27 00:32] LABS: Bacteria Urine None Seen /hpf; Hyaline Casts Urine 0-4 /lpf; RBC Urine 0-2 /hpf (0-2); Squamous Epithelial Cell Urine 0-5 /hpf (0-5); WBC Urine 0-5 /hpf (0-5)
[2023-11-27 00:40] LABS: Specific Gravity, Urine 1.032 (1.005-1.030)
[2023-11-27] MEDS: promethazine 25 mg/mL SDV 1 mL 50 MG IM (00:40)
[2023-11-27] MEDS: sodium chloride 0.9% 500 ML IV (01:15)
[2023-11-27 01:57] LABS: Glucose Point of Care 121 mg/dL (70-110)
== END 2023-11-27 02:39 | disposition home or self-care (01) ==
PROVIDERS: Emergency Medicine; Emergency Provider Physician Assistant; PCP Nurse Practitioner Family
DX: R11.10 Vomiting, unspecified (principal); T40.425A Adverse effect of tramadol, initial encounter; E10.9 Type 1 diabetes mellitus without complications
CPT/HCPCS: 36416; 80053; 81003; 81015; 82009; 82962; 85025; 96361; 96372; 96374; 99284; J2405; J2550; J7030; J7040

== ENCOUNTER 2024-05-17 16:46 | Emergency (ER) | payer OTHER, SELFPAY ==
[2024-05-17 17:11] VITALS: BP 145/63; PULSE 119; RESP 20; TEMP 36.7; O2SAT 100; BMI 24.3
[2024-05-17 17:19] LABS: Glucose Point of Care 377 mg/dL (70-110)
== END 2024-05-17 17:54 | disposition left against medical advice (07) ==
PROVIDERS: Emergency Provider Family Medicine; PCP Nurse Practitioner Family
DX: Z53.21 Procedure and treatment not carried out due to patient leaving prior to being seen by health care provider (principal)
CPT/HCPCS: 36416; 82962

== ENCOUNTER 2024-05-17 18:38 | Inpatient (IN) | payer OTHER, SELFPAY ==
[2024-05-17 18:59] VITALS: BP 144/71; PULSE 114; RESP 20; TEMP 36.7; O2SAT 97
--- NOTE | 2024-05-17 19:05 | ECG_ITS ---
[facility] Test Date: 2024-05-17 Pat Name: Sourav Hsu Department: Room: Gender: Male Histology Technologist: : 2005 Requested By: Emmy Longo Order Number: [id number] Reading MD: Measurements Intervals [place] Rate: 112 P: 81 LA: 127 QRS: 81 QRSD: 94 T: 66 QT: 314 QTc: 430 Interpretive Statements SINUS TACHYCARDIA POSSIBLE RIGHT ATRIAL ENLARGEMENT [0.25mV P-WAVE] POSSIBLE LEFT ATRIAL ENLARGEMENT [-0.1mV P-WAVE IN V1/V2] ABNORMAL RHYTHM ECG No previous ECG available for comparison [email or web address]
[2024-05-17 19:11] LABS: Glucose Point of Care 392 mg/dL (70-110)
[2024-05-17 20:25] LABS: Basophils # 0.1 10^3/uL (0.0-0.1); Basophils % 0.4 %; Eosinophils % 0.1 %; Hematocrit 46.2 % (37-53); Lymphocytes # 0.7 10^3/uL (0.8-4.8); Lymphocytes % 2.2 %; Mean Corpuscular HGB Conc 32.3 g/dL (30-55); Mean Corpuscular Hemoglobin 29.7 pg (27-33); Mean Platelet Volume 10.7 fL (7.4-10.4); Monocytes # 1.7 10^3/uL (0.2-0.9); Monocytes % 5.3 %; Neutrophils % 90.7 %; Nucleated Red Blood Cells % 0 %; Platelet Count 302 10^3/cmm (157-399); Red Blood Count 5.02 10^6/uL (3.85-5.65)
[2024-05-17 20:32] LABS: Ketone (Acetest) Serum Positive (Negative)
[2024-05-17 20:39] LABS: White Blood Count 32.07 10^3/uL (3.29-11.43)
[2024-05-17 20:47] LABS: Alanine Aminotransferase 46 U/L (0-41); Albumin Level 5.1 g/dL (3.5-5.2); Alkaline Phosphatase 122 U/L (40-130); Anion Gap 40.3 (5-19); Aspartate Amino Transferase 54 U/L (0-40); Blood Urea Nitrogen 29 mg/dL (6-20); Carbon Dioxide 10 mmol/L (22-29); Chloride 92 mmol/L (98-107); Creatinine Clr Calc Pharmacy 88.1219; Glucose 494 mg/dL (65-115); Lipase 9 U/L (13-60); Magnesium 2.2 mg/dL (1.7-2.3); Osmolality Calculated 310 mOsm/kg (285-295); Potassium 6.3 mmol/L (3.5-5.1); Sodium 136 mmol/L (136-145); Total Bilirubin 0.8 mg/dL (0.15-1.2); Total Protein 8.1 g/dL (6.6-8.7)
[2024-05-17 21:00] VITALS: BP 149/50; PULSE 114; O2SAT 98
[2024-05-17 21:04] LABS: Glucose Point of Care 488 mg/dL (70-110)
[2024-05-17 21:13] LABS: ABG PCO2 24.7 mmHg (35-45); ABG PH Result 7.17 (7.35-7.45); Arterial Blood Gas Hematocrit 45.8 % (42-52); Base Excess ABG -17.8 mmol/L (-2.0-2.0); Blood Gas Operator Identificat SAM; Blood Gas Sample Site Brachial, right; Blood Gas Sample Type Arterial; PO2 FiO2 Ratio Arterial Blood 500
[2024-05-17] MEDS: insulin regular-human 100 units/1 mL 8 UNIT IVP (21:16)
[2024-05-17 21:23] LABS: Bilirubin Urine Negative (Negative); Blood Urine Negative (Negative); Glucose Urine UA 3+ (Normal); Ketones Urine 3+ (Negative); Leukocyte Esterase Urine Negative (Negative); Nitrate Urine Negative (Negative); Protein Urine Trace (Negative); Specific Gravity, Urine 1.027 (1.005-1.030); Urine Appearance Clear (CLEAR); Urine Color Yellow (Yellow); Urobilinogen Urine 0.2 mg/dL (Negative); pH Urine 5.5 (5-7)
[2024-05-17 21:28] LABS: Add Urine Microscopic? YES; Bacteria Urine None Seen /hpf; RBC Urine 0-2 /hpf (0-2); Squamous Epithelial Cell Urine 0-5 /hpf (0-5); WBC Urine 0-5 /hpf (0-5)
[2024-05-17 21:30] VITALS: BP 145/66; PULSE 133; RESP 27; O2SAT 96
[2024-05-17] MEDS: ondansetron 2 mg/ML SDV 2 mL 4 MG IVP (21:46)
[2024-05-17] MEDS: sodium chloride 0.9% 1,000 ML 999 ML IV ×2 (21:47→23:32)
[2024-05-17] MEDS: INSULIN REGULAR IN 0.9 % NACL 100 UNIT/100 ML BAG 10 UNIT IV (22:00)
--- NOTE | 2024-05-17 22:07 | W.ED.RECABL ---
HPI - Recheck/Abnormal Lab/Rx General: Chief Complaint: Recheck/Abnormal Lab/Rx Stated Complaint: Diabetic Time Seen by Provider: 05/17/24 20:38 History of Present Illness: 19-year-old male patient with history of type 1 diabetes. His blood sugar has been high. He has vomited several times today. No diarrhea. He has generalized belly pain. No fever. He states that he uses an insulin pump to distribute his insulin, but his insulin pump ran out earlier today, on his way here he says. Related Data Home Medications Medication Instructions Recorded Confirmed albuterol sulfate 90 mcg/actuation 2 puff inhalation Q6H PRN 12/12/22 07/14/23 aerosol inhaler Shortness Of Breath Or Wheezing acetaminophen 500 mg tablet 1,000 mg PO Q6H PRN Pain 05/12/23 07/14/23 melatonin 5 mg tablet 5 mg PO BEDTIME PRN Sleep 05/12/23 07/14/23 ondansetron 4 mg disintegrating 4 mg PO Q6H PRN Nausea And Vomiting 05/12/23 07/14/23 tablet pantoprazole 40 mg tablet,delayed 40 mg PO QAM 05/12/23 07/14/23 release carbamazepine 200 mg tablet 200 mg PO BID 06/09/23 07/14/23 fluoxetine 10 mg capsule 10 mg PO DAILY 06/09/23 07/14/23 Previous Rx's Medication Instructions Recorded insulin lispro 200 unit/mL (3 mL) See Rx Instructions .Route 06/09/23 subcutaneous pen (Humalog KwikPen .COMPLEX #15 mL U-200 Insulin) metoclopramide HCl 10 mg tablet 10 mg PO Q6H PRN nausea and 06/20/23 (Reglan) vomiting #30 tabs insulin glargine-yfgn 100 unit/mL 20 unit (0.2 mL) SUBCUT BID #15 mL 07/14/23 (3 mL) subcutaneous pen (Semglee (insulin glargine-yfgn) Pen) promethazine 25 mg tablet 25 mg PO Q6H PRN nausea and 11/27/23 vomiting #20 tabs Allergies Allergy/AdvReac Type Severity Reaction Status Date / Time codeine Allergy Intermediate ADR-Nausea Verified 05/17/24 17:11 [facility] ED PFS: Medical History (Updated 05/17/24 @ 22:08 by Nicholas Madison DO) Hypoglycemia associated with diabetes Tetrahydrocannabinol (THC) dependence MONICA (acute kidney injury) Transaminitis Leukocytosis Strep throat Cannabis hyperemesis syndrome concurrent with and due to cannabis abuse Intractable nausea and vomiting Diabetic ketoacidosis Type 1 diabetes Surgical History No significant past surgical history Family History Other Depression Social History Smoking and tobacco/nicotine status: never used tobacco/nicotine Alcohol intake: never Lives independently: Yes Household members: other Details: Fiancee Current occupational status: employed Physical Exam Const: COMMON NORMALS: no acute distress GENERAL APPEARANCE: cooperative and ill appearing; not frail appearing NUTRITIONAL APPEARANCE: thin HENMT: COMMON NORMALS: normocephalic, atraumatic and Normal external nose present HEAD & SCALP: normocephalic and atraumatic FACE & SINUS: normal facial exam and face symmetric NOSE: Normal external nose present MOUTH: moist mucous membranes abnormal Details: parched Eye: COMMON NORMALS: Equal, round and reactive pupils present and EOMs intact bilaterally PUPIL: Yes Equal, round and reactive pupils present Neck/C-Spine: GENERAL: Yes trachea midline Chest: CHEST: Yes Symmetrical chest wall rise Resp: COMMON NORMALS: normal respiratory effort, No retractions, No use of accessory muscles and clear to auscultation bilaterally AUSCULTATION: clear to auscultation bilaterally Cardio: COMMON NORMALS: regular rhythm RATE: tachycardic RHYTHM: regular rhythm GI: COMMON NORMALS: Normal to inspection, nondistended, normoactive bowel sounds present Extremity: COMMON NORMALS: no pedal edema Neuro: AVANI COMA SCALE: document GCS findings Avani coma scale eye opening: Spontaneous [place] coma scale verbal response: Orientated Avani coma scale motor response: Obey commands [place] coma scale total score: 15 SENSORY EXAM: Yes extremities (intact) Psych: COMMON NORMALS: speech normal SPEECH: Yes normal speech Skin: COMMON NORMALS: no rashes or lesions noted GENERAL SKIN EXAM: no rashes or lesions noted Course Vital Signs: Vital signs: Vital Signs Temperature 98.1 F 05/17/24 18:59 Pulse Rate 108 H 05/17/24 23:01 Respiratory Rate 24 H 05/17/24 23:01 Blood Pressure 128/62 05/17/24 23:01 Pulse Oximetry 99 05/17/24 23:01 Oxygen Delivery Me thod Room Air 05/17/24 23:01 MDM - Recheck/Abnormal Lab/Rx Medical Decision Making This young man is in DKA. He has a bicarbonate level of 10, pH of 7.17 by blood gas testing. His potassium is 6.3. His creatinine is 1.4. His heart rates in the 130s. 2 L bolus, insulin drip, after insulin bolus. Serum blood sugar was 494. He will have to go to the ICU. Lab Data 05/17/24 20:08 05/17/24 20:08 Laboratory Results WBC 32.07 10^3/uL (3.29-11.43) H* 05/17/24 20:08 RBC 5.02 10^6/uL (3.85-5.65) 05/17/24 20:08 Hgb 14.90 g/dL (11.27-16.99) 05/17/24 20:08 Hct 46.2 % (37-53) 05/17/24 20:08 MCV 92.0 fl (82-101) 05/17/24 20:08 MCH 29.7 pg (27-33) 05/17/24 20:08 MCHC 32.3 g/dL (30-55) 05/17/24 20:08 RDW 13.0 % (12.1-15.1) 05/17/24 20:08 Plt Count 302 10^3/cmm (157-399) 05/17/24 20:08 MPV 10.7 fL (7.4-10.4) H 05/17/24 20:08 Neut % (Auto) 90.7 % 05/17/24 20:08 Lymph % (Auto) 2.2 % 05/17/24 20:08 [place] % (Auto) 5.3 % 05/17/24 20:08 Eos % (Auto) 0.1 % 05/17/24 20:08 Baso % (Auto) 0.4 % 05/17/24 20:08 Neut # (Auto) 29.10 10^3/uL (1.8-7.7) H 05/17/24 20:08 Lymph # (Auto) 0.7 10^3/uL (0.8-4.8) L 05/17/24 20:08 [place] # (Auto) 1.7 10^3/uL (0.2-0.9) H 05/17/24 20:08 Eos # (Auto) 0.0 10^3/uL (0.0-0.8) 05/17/24 20:08 Baso # (Auto) 0.1 10^3/uL (0.0-0.1) 05/17/24 20:08 Nucleated RBC % (auto) 0 % 05/17/24 20:08 Nucleated RBCs # 0.0 /100WBC 05/17/24 20:08 Specimen Type Arterial 05/17/24 21:01 Sample Site Brachial, right 05/17/24 21:01 ABG pH 7.17 (7.35-7.45) L* 05/17/24 21:01 ABG pCO2 24.7 mmHg (35-45) L 05/17/24 21:01 ABG pO2 105.0 mmHg (80.0-100.0) H 05/17/24 21:01 ABG PO2/FiO2 Ratio 500 05/17/24 21:01 ABG HCO3 9.0 mmol/L (22-26) L 05/17/24 21:01 ABG Base Excess -17.8 mmol/L (-2.0-2.0) L 05/17/24 21:01 Steven Test N/a 05/17/24 21:01 Hematocrit 45.8 % (42-52) 05/17/24 21:01 O2 Delivery Device None 05/17/24 21:01 FiO2 21.0 % 05/17/24 21:01 Csw ID Eleuterio 05/17/24 21:01 Sodium 136 mmol/L (136-145) 05/17/24 20:08 Potassium 6.3 mmol/L (3.5-5.1) H 05/17/24 20:08 Chloride 92 mmol/L (98-107) L 05/17/24 20:08 Carbon Dioxide 10 mmol/L (22-29) L 05/17/24 20:08 Anion Gap 40.3 (5-19) H 05/17/24 20:08 BUN 29 mg/dL (6-20) H 05/17/24 20:08 Creatinine 1.4 mg/dL (0.7-1.2) H 05/17/24 20:08 GFR Calculation 64.0 mL/min (90-130) L 05/17/24 20:08 Glucose 494 mg/dL (65-115) H 05/17/24 20:08 POC Glucose 373 mg/dL (70-110) H 05/17/24 22:52 Calculated Osmolality 310 mOsm/kg (285-295) H 05/17/24 20:08 Calcium 10.0 mg/dL (8.5-10.5) 05/17/24 20:08 Magnesium 2.2 mg/dL (1.7-2.3) 05/17/24 20:08 Total Bilirubin 0.8 mg/dL (0.15-1.2) 05/17/24 20:08 AST 54 U/L (0-40) H 05/17/24 20:08 ALT 46 U/L (0-41) H 05/17/24 20:08 Alkaline Phosphatase 122 U/L (40-130) 05/17/24 20:08 Total Protein 8.1 g/dL (6.6-8.7) 05/17/24 20:08 Albumin 5.1 g/dL (3.5-5.2) 05/17/24 20:08 Globulin 3.0 g/dL (1.3-4.6) 05/17/24 20:08 Lipase 9 U/L (13-60) L 05/17/24 20:08 Urine Color Yellow (Yellow) 05/17/24 21:00 Urine Appearance Clear (CLEAR) 05/17/24 21:00 Urine pH 5.5 (5-7) 05/17/24 21:00 Ur Specific [place] 1.027 (1.005-1.030) 05/17/24 21:00 Urine Protein Trace (Negative) A 05/17/24 21:00 Urine Glucose (UA) 3+ (Normal) H 05/17/24 21:00 Urine Ketones 3+ (Negative) H 05/17/24 21:00 Urine Blood Negative (Negative) 05/17/24 21:00 Urine Nitrate Negative (Negative) 05/17/24 21:00 Urine Bilirubin Negative (Negative) 05/17/24 21:00 Urine Urobilinogen 0.2 mg/dL (Negative) 05/17/24 21:00 Ur Leukocyte Esterase Negative (Negative) 05/17/24 21:00 Urine RBC 0-2 /hpf (0-2) 05/17/24 21:00 Urine WBC 0-5 /hpf (0-5) 05/17/24 21:00 Ur Squamous Epith Cells 0-5 /hpf (0-5) 05/17/24 21:00 Amorphous Sediment Not Reportable 05/17/24 21:00 Urine Bacteria None seen /hpf (NONE) 05/17/24 21:00 Hyaline Casts 0.40 /lpf 05/17/24 21:00 Serum Ketones Positive (Negative) H 05/17/24 20:08 XR interpretation done by ED provider, pending radiology final review Critical Care Time Critical Care Time: Critical Care Time: Yes Total Critical Care Time: 35 Attestation: This case had a high probability of a clinically significant, sudden, or life threatening deterioration of this patient's condition which required my full and direct attention, intervention and personal management. Time is independent of any procedures performed. Discharge Plan Discharge Patient Disposition: Admitted As Inpatient Clinical Impression: DKA (diabetic ketoacidosis) Qualifiers: Diabetes mellitus type: type 1 Diabetes mellitus complication detail: without coma Qualified Code(s): E10.10 - Type 1 diabetes mellitus with ketoacidosis without coma Condition: Critical Coding Level of Care Code ED Big Data Engineer for Wilmar Leroy
--- NOTE | 2024-05-17 22:19 | XRR_ITS ---
PROCEDURE INFORMATION: Exam: XR Chest Exam date and time: 05/17/2024 10:49 PM Age: 19 years old Clinical indication: Abnormal findings; Abnormal diagnostic tests; Abnormal ekg; Patient HX: Leukocytosis; Cough; Dka TECHNIQUE: Imaging protocol: Radiologic exam of the chest. Views: 1 view. COMPARISON: CR XR chest 1V portable [id number] 05/11/2023 8:56 PM FINDINGS: Lungs: Unremarkable. No consolidation. Pleural spaces: Unremarkable. No pleural effusion. No pneumothorax. Heart/Mediastinum: Unremarkable. No cardiomegaly. Bones/joints: Unremarkable. XR/XR chest 1V portable [id number] IMPRESSION: No acute findings.
[2024-05-17 22:20] VITALS: BP 113/43; PULSE 111; RESP 19; O2SAT 100
[2024-05-17 22:54] LABS: Glucose Point of Care 373 mg/dL (70-110)
[2024-05-17 23:01] VITALS: BP 128/62; PULSE 108; RESP 24; O2SAT 99
--- NOTE | 2024-05-17 23:15 | P.HP_ITS ---
Providers/Chief Complaint 2 Admitting Physician: Dr. Juan J Longo Primary Care Provider: Raquel Shay APN Chief Complaint: Diabetic issues History of Present Illness Sourav Hsu is a 19 yo w/ IDDM-1 on an insulin pump and a Dexcom, sees public health dietitian at [facility], who presents to the ED on 05/17/2024 with complaints of intractable nausea/vomiting. The patient states that he woke up at 8am this morning and felt well. Suddenly around 9am, he started vomiting. He had multiple episodes of emesis until 3pm. He denies hematemesis or abdominal pain before he started vomitting. He also denies diarrhea, melena, hematochezia, dysuria, hematuria, increased urinary urgency/frequency. He states that he noticed urinary incontinence. He states that his insulin read high, which it is when it reads when it is more than 400. He states that he had a burning sensation in his throat and he started to cough yellow mucous. He states that he still has a little cough and burning in his throat. He endorses chills, which he feels when his BG is very high. He endorses CP from dry heaving, palpitations. He endorses runny nose, nasal congestion that started around the same time that he had the cough and sore throat. He states that he went to a medical center manager and [facility], because he had began to experience numbness in his left great toe. He denies fever, SOB, dizziness, lightheadedness or syncope. He states that by the time he arrived in the ED, his insulin pump deactivated, because he ran out of insulin. In the ED, his vital signs were significant for tachypnea. His labs were significant for a leukocytosis of 32, AGAP of 34, potassium of 6.3, blood glucose of 494, Cr of 1.4, mildly elevated AST and ALT, and a lipase of 9. His respiratory pathogen panel was positive for entero-/rhinovirus. He was given 20 units of IV insulin total, 2L of NS prior to admission to the ICU for DKA management Review of Systems 2 Const: Reports: chills, change in appetite (poor) and malaise; Denies: fever(s) or body aches Eyes: Denies: change in vision or blurry vision ENMT: Reports: nasal discharge and nasal congestion; Denies: ear or mastoid pain or ear discharge Card: Reports: chest pain and palpitations Resp: Reports: productive cough; Denies: dyspnea or wheezing GI: Reports: nausea and vomiting; Denies: abdominal pain, hematemesis, diarrhea, constipation, hematochezia or melena : Reports: urinary incontinence; Denies: difficulty urinating, dysuria, urinary frequency or hematuria Musc: Denies: joint pain Skin/Breast: Denies: rash or new lesions Neuro: Denies: headache(s) or dizziness Psych: Reports: anxiety; Denies: suicidal ideation or homicidal ideation Endo: Reports: polydipsia and tired all the time; Denies: cold intolerance or heat intolerance Daniel/Lymph: Reports: easy bruising; Denies: easy bleeding Medications/Allergies Home Medications Medication Instructions Recorded Confirmed Last Taken Type albuterol sulfate 90 mcg/actuation 2 puff inhalation Q6H PRN 12/12/22 07/14/23 Unknown History aerosol inhaler Shortness Of Breath Or Wheezing acetaminophen 500 mg tablet 1,000 mg PO Q6H PRN Pain 05/12/23 07/14/23 Unknown History melatonin 5 mg tablet 5 mg PO BEDTIME PRN Sleep 05/12/23 07/14/23 Unknown History ondansetron 4 mg disintegrating 4 mg PO Q6H PRN Nausea And Vomiting 05/12/23 07/14/23 Unknown History tablet pantoprazole 40 mg tablet,delayed 40 mg PO QAM 05/12/23 07/14/23 06/08/23 History release carbamazepine 200 mg tablet 200 mg PO BID 06/09/23 07/14/23 06/08/23 History fluoxetine 10 mg capsule 10 mg PO DAILY 06/09/23 07/14/23 06/08/23 History insulin lispro 200 unit/mL (3 mL) See Rx Instructions .Route 06/09/23 07/14/23 Unknown Rx subcutaneous pen (Humalog KwikPen .COMPLEX #15 mL U-200 Insulin) metoclopramide HCl 10 mg tablet 10 mg PO Q6H PRN nausea and 06/20/23 07/14/23 Unknown Rx (Reglan) vomiting #30 tabs insulin glargine-yfgn 100 unit/mL 20 unit (0.2 mL) SUBCUT BID #15 mL 07/14/23 07/14/23 Unknown Rx (3 mL) subcutaneous pen (Semglee (insulin glargine-yfgn) Pen) promethazine 25 mg tablet 25 mg PO Q6H PRN nausea and 11/27/23 Unknown Rx vomiting #20 tabs Allergies Allergy/AdvReac Type Severity Reaction Status Date / Time codeine Allergy Intermediate ADR-Nausea Verified 05/17/24 17:11 PFSH Acute 2 PFSH: Medical History (Updated 05/18/24 @ 03:43 by Emmy Longo MD) Tetrahydrocannabinol (THC) dependence MONICA (acute kidney injury) Cannabis hyperemesis syndrome concurrent with and due to cannabis abuse Boxers fracture in 11/2023 Hypoglycemia associated with diabetes Transaminitis Leukocytosis Strep throat Intractable nausea and vomiting Diabetic ketoacidosis Type 1 diabetes Surgical History No significant past surgical history Family History Other Depression Social History Smoking and tobacco/nicotine status: never used tobacco/nicotine Alcohol intake: never Lives independently: Yes Household members: other Details: Fiancee Current occupational status: employed Vitals/I&O/Wt Last Vital Signs Temp 98.1 F 05/17/24 18:59 Pulse 108 H 05/17/24 23:01 Resp 24 H 05/17/24 23:01 BP 128/62 05/17/24 23:01 Pulse Ox 99 05/17/24 23:01 O2 Del Method Room Air 05/17/24 23:01 Weight last 48 hrs Weight 77.111 kg Physical Exam 2 Const: GENERAL APPEARANCE: cooperative and comfortable O RIENTATION/CONSCIOUSNESS: Yes awake, Yes oriented to person, Yes oriented to place and Yes oriented to time HENMT: HEAD & SCALP: normal to inspection, normocephalic and atraumatic N OSE: Normal external nose present EXTERNAL EAR: Yes external ears normal M OUTH: Normal oral and palatal mucosa present THROAT: posterior oropharynx normal Eye: OTHER: PERRL, EOMI, normal conjunctiva b/l Neck/C-Spine: GENERAL: Yes normal visual inspection and Yes trachea midline THYROID: Thyroid normal CAROTIDS: No bruit CERVICAL SPINE: Yes cervical ROM normal Lymph: OTHER: No cervical or supraclavicular LAD. Resp: OTHER: CTAB, no wheezes rales or rhonchi. Cardio: OTHER: RRR, no murmurs, rubs, gallops or clicks. GI: OTHER: Positive bowel sounds appreciated. Mild tenderness to palpation diffusely in the abdomen. No guarding, no rigidity, no rebound tenderness, no hepatosplenomegaly. Extremity: GENERAL: No clubbing, No cyanosis and No edema Neuro: CRANIAL NERVES: Yes CN normal except as noted SPEECH: speech normal SENSORY EXAM: No sensory level loss detected MOTOR EXAM: 5/5 motor strength present throughout and Normal motor muscle tone present throughout Psych: APPEARANCE: Yes grossly normal ATTITUDE: Yes calm and Yes engaged ACTIVITY/MOTOR BEHAVIOR: Yes appropriate eye contact SPEECH: Yes normal speech MOOD & AFFECT: Yes euthymic mood THOUGHT PROCESS: Normal thought process present THOUGHT CONTENT: Yes Normal thought content present A TTENTION/CONCENTRATION: Yes attention grossly intact MEMORY/COGNITION: Yes memory grossly intact Skin: GENERAL SKIN EXAM: no rashes or lesions noted Data 05/17/24 20:08 05/17/24 20:08 A&P Assessment and plan (1) DKA (diabetic ketoacidosis): Qualifiers: Diabetes mellitus complication detail: without coma Diabetes mellitus type: type 1 Qualified Code(s): E10.10 - Type 1 diabetes mellitus with ketoacidosis without coma (2) High anion gap metabolic acidosis: (3) Tetrahydrocannabinol (THC) dependence: Plan Sourav Hsu is a 19 yo w/ IDDM-1 on an insulin pump and a Dexcom, sees public health dietitian at [facility], who presents to the ED on 05/17/2024 with complaints of intractable nausea/vomiting. The patient was admitted for DKA. #Sepsis: due to #Gastroenteritis or #Cannabais hyperemesis. #Intractable n/v - Zofran prn ordered. - Order CT abd/pelvis to evaluate abdominal pain. #DKA #AGAP Metabolic acidosis - Continue DKA protocol - Monitor repeat BMP #Hyperkalemia - Monitor repeat BMPs. #Pre-renal MONICA - Continue IVF. Monitor renal fxn #Entero/rhinovirus URI - Symptomatic mgmt. Vasquez morrison for cough. - F/u rapid strep test. #THC substance use d/o #Anxiety d/o - He self medicates for his Anxiety. I see fluoxetine on his chart. He tells me that he is bad at taking medications. DVT ppx: Lovenox Attestations 2 Medical Necessity Statement*: The patient is to be hospitalized for greater than 2 midnights in order to be treated for DKA, and his MONICA. Time Spent in Patient Care: >70 minutes was spent on chart review, patient interview/physical exam, lab/image review, plan formulation and coordination of care. Coding Level of Care Code Critical Care >/= 30 minutes Critical care time (in minutes): 70 The high probability of a clinically significant, sudden or life threatening deterioration, as referenced in this documentation, required my full and direct attention, intervention and personal management. The critical care time shown is in addition to time spent performing any reported separately billable procedures and includes the following: [x] Data and vital sign review and interpretation [x ] Patient assessment, examination and intervention [x] Medication orders and management [x] Patient/Family updates as able [x] Care Coordination and Documentation. Diagnoses DKA (diabetic ketoacidosis) E10.10 Diabetes mellitus complication detail: without coma Diabetes mellitus type: type 1 High anion gap metabolic acidosis E87.29 Tetrahydrocannabinol (THC) dependence F12.20
[2024-05-17] MEDS: INSULIN REGULAR IN 0.9 % NACL 100 UNIT/100 ML BAG 8.5 UNIT IV (23:27)
--- NOTE | 2024-05-17 23:28 | PC.NURSE ---
Insulin drip started on the non-weight based protocol. Insulin drip protocol changed at 2100, rate was recalculated and titrated.
[2024-05-17 23:53] LABS: Amphetamines Screen Urine Negative (Negative); Barbiturates Screen Urine Negative (Negative); Benzodiazepines Screen Urine Negative (Negative); Cocaine Screen Urine Negative (Negative); Opiate Screen Urine Negative (Negative); PCP Screen Urine Negative (Negative); THC Screen Urine Positive (Negative)
[2024-05-17 23:58] LABS: Glucose Point of Care 289 mg/dL (70-110)
[2024-05-18] VITALS (112 sets, daily range): BP systolic 93–132; BP diastolic 40–79; PULSE 58–125; RESP 2–29; TEMP 36.5–37.1; O2SAT 95–100
[2024-05-18 00:22] LABS: Adenovirus Not Detected (NOT DETECT); Chlamydia Pneumoniae Not Detected (NOT DETECT); Coronavirus 229E,HKU1,NL63,OC4 Not Detected (NOT DETECT); Human Metapneumovirus Not Detected (NOT DETECT); Human Rhinovirus/Enterovirus Detected (NOT DETECT); Influenza A Not Detected (NOT DETECT); Influenza A H1 Not Detected (NOT DETECT); Influenza A H1-2009 Not Detected (NOT DETECT); Influenza A H3 Not Detected (NOT DETECT); Influenza B Not Detected (NOT DETECT); Mycoplasma Pneumoniae Not Detected (NOT DETECT); Parainfluenza Virus Type 1 Not Detected (NOT DETECT); Parainfluenza Virus Type 2 Not Detected (NOT DETECT); Parainfluenza Virus Type 3 Not Detected (NOT DETECT); Parainfluenza Virus Type 4 Not Detected (NOT DETECT); Respiratory Syncytial Virus A Not Detected (NOT DETECT); Respiratory Syncytial Virus B Not Detected (NOT DETECT); SARS-COV-2 Not Detected (NOT DETECT)
[2024-05-18 00:58] LABS: Glucose Point of Care 263 mg/dL (70-110)
[2024-05-18 02:00] LABS: Glucose Point of Care 213 mg/dL (70-110)
[2024-05-18] MEDS: dextrose 5%-sod chloride 0.45% 1,000 ML 125 ML IV ×2 (02:09→10:13)
[2024-05-18 02:59] LABS: Glucose Point of Care 251 mg/dL (70-110)
[2024-05-18 04:23] LABS: Glucose Point of Care 270 mg/dL (70-110)
[2024-05-18 04:36] LABS: Anion Gap 21.9 (5-19); Blood Urea Nitrogen 27 mg/dL (6-20); Calcium 8.8 mg/dL (8.5-10.5); Carbon Dioxide 18 mmol/L (22-29); Chloride 100 mmol/L (98-107); Creatinine Clr Calc Pharmacy 99.1667; Glomerular Filtration Rate 76.4 mL/min (90-130); Glucose 270 mg/dL (65-115); Osmolality Calculated 295 mOsm/kg (285-295); Phosphorus 2.4 mg/dL (2.5-4.5); Potassium 4.9 mmol/L (3.5-5.1); Sodium 135 mmol/L (136-145)
[2024-05-18 05:26] LABS: Rapid Strep A Test Negative (Negative)
[2024-05-18 06:17] LABS: Glucose Point of Care 265 mg/dL (70-110)
[2024-05-18 06:17] LABS: Glucose Point of Care 278 mg/dL (70-110)
[2024-05-18 06:25] LABS: Basophils # 0.1 10^3/uL (0.0-0.1); Basophils % 0.2 %; Hematocrit 37.2 % (37-53); Lymphocytes % 4.1 %; Mean Corpuscular HGB Conc 33.3 g/dL (30-55); Mean Corpuscular Hemoglobin 28.9 pg (27-33); Mean Corpuscular Volume 86.7 fl (82-101); Mean Platelet Volume 10.4 fL (7.4-10.4); Monocytes # 1.6 10^3/uL (0.2-0.9); Monocytes % 6.6 %; Neutrophils # 20.64 10^3/uL (1.8-7.7); Neutrophils % 88.4 %; Nucleated Red Blood Cells % 0 %; Platelet Count 245 10^3/cmm (157-399); Red Blood Count 4.29 10^6/uL (3.85-5.65); Red Cell Distribution Width 12.8 % (12.1-15.1); White Blood Count 23.36 10^3/uL (3.29-11.43)
[2024-05-18 07:22] LABS: Glucose Point of Care 258 mg/dL (70-110)
[2024-05-18 08:29] LABS: Glucose Point of Care 256 mg/dL (70-110)
[2024-05-18 08:33] LABS: Anion Gap 17.5 (5-19); Blood Urea Nitrogen 23 mg/dL (6-20); Calcium 8.5 mg/dL (8.5-10.5); Carbon Dioxide 19 mmol/L (22-29); Chloride 104 mmol/L (98-107); Creatinine Clr Calc Pharmacy 118.8724; Glomerular Filtration Rate 94.3 mL/min (90-130); Glucose 283 mg/dL (65-115); Osmolality Calculated 296 mOsm/kg (285-295); Phosphorus 3.3 mg/dL (2.5-4.5); Potassium 4.5 mmol/L (3.5-5.1); Sodium 136 mmol/L (136-145)
[2024-05-18 09:23] LABS: Glucose Point of Care 271 mg/dL (70-110)
[2024-05-18] MEDS: pantoprazole 40 mg SDV IVP (09:35)
--- NOTE | 2024-05-18 09:37 | PC.PHAR ---
PATIENT STATES HE TAKES INSULIN (HUMALOG kwiKPEN) I SPOKE TO THE PHARMACIES HE HAS LISTED AND [facility] HASN'T FILLED FOR HIM SINCE NOVEMBER 2023,SOME PAIN MEDS. [facility] DID STATE HE HAS RX FOR INSULIN BUT NEVER PICKED UP . [facility] STATED THEY HAVE AN RX FOR DEXCOM AND TRANSMITTER BUT WAS NEVER PICKED UP.
[2024-05-18 10:12] LABS: Glucose Point of Care 194 mg/dL (70-110)
[2024-05-18 11:11] LABS: Glucose Point of Care 163 mg/dL (70-110)
[2024-05-18 12:18] LABS: Glucose Point of Care 170 mg/dL (70-110)
[2024-05-18 12:51] LABS: Anion Gap 15.3 (5-19); Blood Urea Nitrogen 20 mg/dL (6-20); Calcium 8.7 mg/dL (8.5-10.5); Carbon Dioxide 22 mmol/L (22-29); Chloride 104 mmol/L (98-107); Creatinine Clr Calc Pharmacy 132.0805; Glomerular Filtration Rate 106.5 mL/min (90-130); Glucose 198 mg/dL (65-115); Osmolality Calculated 292 mOsm/kg (285-295); Phosphorus 2.6 mg/dL (2.5-4.5); Potassium 4.3 mmol/L (3.5-5.1); Sodium 137 mmol/L (136-145)
[2024-05-18 13:24] LABS: Glucose Point of Care 192 mg/dL (70-110)
--- NOTE | 2024-05-18 13:25 | P.PN_ITS ---
Subjective 2 Subjective: Seen today. Anion gap still high. Patient states he ran out of his insulin at home. He says he orders them online. Now has enough stock. Feels better overall. Patient is positive for Enterra rhinovirus Vitals/I&O/Wt Last Vital Signs Temp 97.7 F 05/18/24 12:00 Pulse 62 05/18/24 12:00 Resp 17 05/18/24 12:00 BP 103/54 05/18/24 12:00 Pulse Ox 98 05/18/24 12:00 O2 Del Method Room Air 05/18/24 12:00 05/17/24 05/18/24 05/18/24 22:59 06:59 14:59 Intake Total 1000 / 1000 21.192 / 9258.951 7418.375 / 1017.375 Balance 1000 / 1000 21.192 / 5047.125 1547.375 / 1017.375 Weight last 48 hrs Weight 70.307 kg Weight 70.5 kg Weight 77.111 kg Physical Exam 2 Const: GENERAL APPEARANCE: cooperative and comfortable O RIENTATION/CONSCIOUSNESS: Yes awake, Yes oriented to person, Yes oriented to place and Yes oriented to time HENMT: COMMON NORMALS: normocephalic, atraumatic, external ears normal and Normal external nose present HEAD & SCALP: normal to inspection, normocephalic and atraumatic NOSE: Normal external nose present EXTERNAL EAR: Yes external ears normal MOUTH: Normal oral and palatal mucosa present THROAT: posterior oropharynx normal Eye: OTHER: PERRL, EOMI, normal conjunctiva b/l Neck/C-Spine: COMMON NORMALS: Thyroid normal GENERAL: Yes normal visual inspection and Yes trachea midline THYROID: Thyroid normal CAROTIDS: No bruit CERVICAL SPINE: Yes cervical ROM normal Lymph: OTHER: No cervical or supraclavicular LAD. Resp: OTHER: CTAB, no wheezes rales or rhonchi. Cardio: OTHER: RRR, no murmurs, rubs, gallops or clicks. GI: OTHER: Positive bowel sounds appreciated. Nontender no guarding, no rigidity, no rebound tenderness, no hepatosplenomegaly. Extremity: GENERAL: No clubbing, No cyanosis and No edema Neuro: SENSORIUM/ORIENTATION: Yes oriented to person, Yes oriented to place and Yes oriented to time CRANIAL NERVES: Yes CN normal except as noted S PEECH: speech normal SENSORY EXAM: No sensory level loss detected MOTOR EXAM: 5/5 motor strength present throughout and Normal motor muscle tone present throughout Psych: COMMON NORMALS: Normal thought process present and speech normal A PPEARANCE: Yes grossly normal ATTITUDE: Yes calm and Yes engaged A CTIVITY/MOTOR BEHAVIOR: Yes appropriate eye contact SPEECH: Yes normal speech MOOD & AFFECT: Yes euthymic mood THOUGHT PROCESS: Normal thought process present THOUGHT CONTENT: Yes Normal thought content present A TTENTION/CONCENTRATION: Yes attention grossly intact MEMORY/COGNITION: Yes memory grossly intact Skin: COMMON NORMALS: no rashes or lesions noted GENERAL SKIN EXAM: no rashes or lesions noted Data 05/18/24 03:45 05/18/24 12:25 Micro: Microbiology 05/17/24 23:10 Blood Culture - Preliminary Blood SPECIMEN COLLECTED 05/17/24 23:00 Blood Culture - Preliminary Blood SPECIMEN COLLECTED A&P Assessment and plan (1) DKA (diabetic ketoacidosis): Qualifiers: Diabetes mellitus complication detail: without coma Diabetes mellitus type: type 1 Qualified Code(s): E10.10 - Type 1 diabetes mellitus with ketoacidosis without coma (2) High anion gap metabolic acidosis: (3) Tetrahydrocannabinol (THC) dependence: Plan Sourav Hsu is a 19 yo w/ IDDM-1 on an insulin pump and a Dexcom, 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 The patient was admitted for DKA. #Sepsis: due to #Gastroenteritis or #Cannabais hyperemesis. #Intractable n/v - Zofran prn ordered. - Order CT abd/pelvis to evaluate abdominal pain. #DKA #AGAP Metabolic acidosis - Continue DKA protocol - Monitor repeat BMP #Hyperkalemia - Monitor repeat BMPs. #Pre-renal MONICA - Continue IVF. Monitor renal fxn #Entero/rhinovirus URI - Symptomatic mgmt. Vasquez morrison for cough. - F/u rapid strep test. #THC substance use d/o #Anxiety d/o - He self medicates for his Anxiety. I see fluoxetine on his chart. He tells me that he is bad at taking medications. DVT ppx: Lovenox 05/18/2024 ?Continue insulin drip as per DKA protocol. ? Transition to Lantus once anion gap is below 15. ? Continue to check BMP every 4 hours. ? Patient to continue back on his insulin pump at home after discharge. ? Continue supportive care for rhinovirus. ? Leukocytosis reactive secondary to rhinovirus. ? Plan to discharge home in next 24 to 48 hours. Attestations 2 Medical Necessity Statement*: DKA. On insulin drip at this time. Diagnoses DKA (diabetic ketoacidosis) E10.10 Diabetes mellitus complication detail: without coma Diabetes mellitus type: type 1 High anion gap metabolic acidosis E87.29 Tetrahydrocannabinol (THC) dependence F12.20
[2024-05-18] MEDS: insulin glargine 100 units/1 mL 20 UNIT SUBCUT (14:01)
[2024-05-18] MEDS: sodium chloride 0.9% 1,000 ML 125 ML IV (14:01)
[2024-05-18 14:13] LABS: Glucose Point of Care 210 mg/dL (70-110)
[2024-05-18 16:29] LABS: Glucose Point of Care 322 mg/dL (70-110)
[2024-05-18] MEDS: insulin lispro 100 unit/1 mL SUBCUT (17:05)
[2024-05-18 17:34] LABS: Anion Gap 15.6 (5-19); Blood Urea Nitrogen 20 mg/dL (6-20); Calcium 8.8 mg/dL (8.5-10.5); Carbon Dioxide 21 mmol/L (22-29); Chloride 104 mmol/L (98-107); Creatinine Clr Calc Pharmacy 118.8724; Glomerular Filtration Rate 94.3 mL/min (90-130); Glucose 342 mg/dL (65-115); Magnesium 1.8 mg/dL (1.7-2.3); Osmolality Calculated 298 mOsm/kg (285-295); Phosphorus 1.9 mg/dL (2.5-4.5); Potassium 4.6 mmol/L (3.5-5.1); Sodium 136 mmol/L (136-145)
--- NOTE | 2024-05-18 17:43 | PC.NURSE ---
Patient states that he is going to go home around 8PM if he is not discharged. Notified Dr. Martin, labwork and patient current status reviewed. Dr. Martin will discharge patient to home. Patient reports that he has everything at home to restart his insulin pump.
--- NOTE | 2024-05-18 17:58 | P.DS_ITS ---
Discharge Providers Date of Admission: 05/17/24 22:34 Date of Discharge: May 18, 2024 Attending Provider at Admission: Emmy Longo MD Attending Provider at Discharge: Samaria Martin MD Primary Care Provider: Raquel Shay APN Diagnoses at Discharge Discharge Diagnosis (1) DKA (diabetic ketoacidosis): Status: Resolved Qualifiers: Diabetes mellitus complication detail: without coma Diabetes mellitus type: type 1 Qualified Code(s): E10.10 - Type 1 diabetes mellitus with ketoacidosis without coma (2) High anion gap metabolic acidosis: Status: Resolved (3) Tetrahydrocannabinol (THC) dependence: Status: Acute Reason for Visit Reason for Visit: Diabetic issues Hospital Course Hospital Course Patient is a type I diabetic presented to the hospital with DKA. He states he ran out of his insulin in his pump. Pump is functioning okay. He states he orders them online he also has some bottles at his dad's house. He was bridged to Lantus and started on sliding scale. He tolerated oral diet and requested to go home. He is not on any long-acting insulin or sliding scale at home and purely uses Omnipod. He states he has enough supplies and will be putting it on as soon as he gets home. He lives close by. Anion gap is closed and remain closed despite him eating. He requested to go home late around 8 PM and therefore he was discharged safely. Heavily counseled to keep supplies with him and Zofran prescribed for chronic nausea as per patient's request. Patient to follow-up with his [facility] and primary care doctor. Diabetic education was also provided. Physical Exam Const: GENERAL APPEARANCE: cooperative and comfortable ORIENTATION/CONSCIOUSNESS: Yes awake, Yes oriented to person, Yes oriented to place and Yes oriented to time HENMT: COMMON NORMALS: normocephalic, atraumatic, external ears normal and Normal external nose present HEAD & SCALP: normal to inspection, normocephalic and atraumatic NOSE: Normal external nose present EXTERNAL EAR: Yes external ears normal MOUTH: Normal oral and palatal mucosa present THROAT: posterior oropharynx normal Eye: OTHER: PERRL, EOMI, normal conjunctiva b/l Neck/C-Spine: COMMON NORMALS: Thyroid normal GENERAL: Yes normal visual inspection and Yes trachea midline THYROID: Thyroid normal CAROTIDS: No bruit CERVICAL SPINE: Yes cervical ROM normal Lymph: OTHER: No cervical or supraclavicular LAD. Resp: OTHER: CTAB, no wheezes rales or rhonchi. Cardio: OTHER: RRR, no murmurs, rubs, gallops or clicks. GI: OTHER: Positive bowel sounds appreciated. Nontender no guarding, no rigidity, no rebound tenderness, no hepatosplenomegaly. Extremity: GENERAL: No clubbing, No cyanosis and No edema Neuro: SENSORIUM/ORIENTATION: Yes oriented to person, Yes oriented to place and Yes oriented to time CRANIAL NERVES: Yes CN normal except as noted SPEECH: speech normal SENSORY EXAM: No sensory level loss detected MOTOR EXAM: 5/5 motor strength present throughout and Normal motor muscle tone present throughout Psych: COMMON NORMALS: Normal thought process present and speech normal APPEARANCE: Yes grossly normal ATTITUDE: Yes calm and Yes engaged ACTIVITY/MOTOR BEHAVIOR: Yes appropriate eye contact SPEECH: Yes normal speech MOOD & AFFECT: Yes euthymic mood THOUGHT PROCESS: Normal thought process present THOUGHT CONTENT: Yes Normal thought content present ATTENTION/CONCENTRATION: Yes attention grossly intact MEMORY/COGNITION: Yes memory grossly intact Skin: COMMON NORMALS: no rashes or lesions noted GENERAL SKIN EXAM: no rashes or lesions noted Discharge Data Studies Completed and Pending Completed Studies During Hospitalization Category Date Time Status XR chest 1V portable [id number] Stat Exams 05/17/24 22:19 Completed Pending at discharge Category Date Time Status Blood Culture Stat Lab 05/17/24 23:10 Results Complete Blood Count w/Auto DAILY Lab 05/19/24 10:00 Ordered Complete Blood Count w/Auto DAILY Lab 05/20/24 10:00 Ordered Comprehensive Metabolic Panel AM LABS Lab 05/19/24 04:00 Ordered Comprehensive Metabolic Panel AM LABS Lab 05/20/24 04:00 Ordered Magnesium AM LABS Lab 05/19/24 04:00 Ordered Magnesium AM LABS Lab 05/20/24 04:00 Ordered Streptococcus Culture Group A Stat Lab 05/18/24 04:25 Received Radiology Impressions Chest X-Ray 05/17/24 22:19 IMPRESSION: No acute findings. Laboratory Results WBC 23.36 10^3/uL (3.29-11.43) H 05/18/24 03:45 RBC 4.29 10^6/uL (3.85-5.65) 05/18/24 03:45 Hgb 12.40 g/dL (11.27-16.99) 05/18/24 03:45 Hct 37.2 % (37-53) 05/18/24 03:45 MCV 86.7 fl (82-101) D 05/18/24 03:45 MCH 28.9 pg (27-33) 05/18/24 03:45 MCHC 33.3 g/dL (30-55) 05/18/24 03:45 RDW 12.8 % (12.1-15.1) 05/18/24 03:45 Plt Count 245 10^3/cmm (157-399) 05/18/24 03:45 MPV 10.4 fL (7.4-10.4) 05/18/24 03:45 Neut % (Auto) 88.4 % 05/18/24 03:45 Lymph % (Auto) 4.1 % 05/18/24 03:45 Bartholomew % (Auto) 6.6 % 05/18/24 03:45 Eos % (Auto) 0.0 % 05/18/24 03:45 Baso % (Auto) 0.2 % 05/18/24 03:45 Neut # (Auto) 20.64 10^3/uL (1.8-7.7) H 05/18/24 03:45 Lymph # (Auto) 1.0 10^3/uL (0.8-4.8) 05/18/24 03:45 Bartholomew # (Auto) 1.6 10^3/uL (0.2-0.9) H 05/18/24 03:45 Eos # (Auto) 0.0 10^3/uL (0.0-0.8) 05/18/24 03:45 Baso # (Auto) 0.1 10^3/uL (0.0-0.1) 05/18/24 03:45 Nucleated RBC % (auto) 0 % 05/18/24 03:45 Nucleated RBCs # 0.0 /100WBC 05/18/24 03:45 Specimen Type Arterial 05/17/24 21:01 Sample Site Brachial, right 05/17/24 21:01 ABG pH 7.17 (7.35-7.45) L* 05/17/24 21:01 ABG pCO2 24.7 mmHg (35-45) L 05/17/24 21:01 ABG pO2 105.0 mmHg (80.0-100.0) H 05/17/24 21:01 ABG PO2/FiO2 Ratio 500 05/17/24 21:01 ABG HCO3 9.0 mmol/L (22-26) L 05/17/24 21:01 ABG Base Excess -17.8 mmol/L (-2.0-2.0) L 05/17/24 21:01 Steven Test N/a 05/17/24 21:01 Hematocrit 45.8 % (42-52) 05/17/24 21:01 O2 Delivery Device None 05/17/24 21:01 FiO2 21.0 % 05/17/24 21:01 Public Welfare Director ID Eleuterio 05/17/24 21:01 Sodium 136 mmol/L (136-145) 05/18/24 16:26 Potassium 4.6 mmol/L (3.5-5.1) 05/18/24 16:26 Chloride 104 mmol/L (98-107) 05/18/24 16:26 Carbon Dioxide 21 mmol/L (22-29) L 05/18/24 16:26 Anion Gap 15.6 (5-19) 05/18/24 16:26 BUN 20 mg/dL (6-20) 05/18/24 16:26 Creatinine 1.0 mg/dL (0.7-1.2) 05/18/24 16:26 GFR Calculation 94.3 mL/min (90-130) 05/18/24 16:26 Glucose 342 mg/dL (65-115) H 05/18/24 16:26 POC Glucose 322 mg/dL (70-110) H 05/18/24 16:26 Calculated Osmolality 298 mOsm/kg (285-295) H 05/18/24 16:26 Calcium 8.8 mg/dL (8.5-10.5) 05/18/24 16:26 Phosphorus 1.9 mg/dL (2.5-4.5) L 05/18/24 16:26 Magnesium 1.8 mg/dL (1.7-2.3) 05/18/24 16:26 Total Bilirubin 0.8 mg/dL (0.15-1.2) 05/17/24 20:08 AST 54 U/L (0-40) H 05/17/24 20:08 ALT 46 U/L (0-41) H 05/17/24 20:08 Alkaline Phosphatase 122 U/L (40-130) 05/17/24 20:08 Total Protein 8.1 g/dL (6.6-8.7) 05/17/24 20:08 Albumin 5.1 g/dL (3.5-5.2) 05/17/24 20:08 Globulin 3.0 g/dL (1.3-4.6) 05/17/24 20:08 Lipase 9 U/L (13-60) L 05/17/24 20:08 Urine Color Yellow (Yellow) 05/17/24 21:00 Urine Appearance Clear (CLEAR) 05/17/24 21:00 Urine pH 5.5 (5-7) 05/17/24 21:00 Ur Specific [place] 1.027 (1.005-1.030) 05/17/24 21:00 Urine Protein Trace (Negative) A 05/17/24 21:00 Urine Glucose (UA) 3+ (Normal) H 05/17/24 21:00 Urine Ketones 3+ (Negative) H 05/17/24 21:00 Urine Blood Negative (Negative) 05/17/24 21:00 Urine Nitrate Negative (Negative) 05/17/24 21:00 Urine Bilirubin Negative (Negative) 05/17/24 21:00 Urine Urobilinogen 0.2 mg/dL (Negative) 05/17/24 21:00 Ur Leukocyte Esterase Negative (Negative) 05/17/24 21:00 Urine RBC 0-2 /hpf (0-2) 05/17/24 21:00 Urine WBC 0-5 /hpf (0-5) 05/17/24 21:00 Ur Squamous Epith Cells 0-5 /hpf (0-5) 05/17/24 21:00 Amorphous Sediment Not Reportable 05/17/24 21:00 Urine Bacteria None seen /hpf (NONE) 05/17/24 21:00 Hyaline Casts 0.40 /lpf 05/17/24 21:00 Urine Opiates Screen Negative ng/mL (Negative) 05/17/24 23:37 Ur Barbiturates Screen Negative ng/mL (Negative) 05/17/24 23:37 Ur Phencyclidine Scrn Negative ng/mL (Negative) 05/17/24 23:37 Ur Amphetamines Screen Negative ng/mL (Negative) 05/17/24 23:37 U Benzodiazepines Scrn Negative ng/mL (Negative) 05/17/24 23:37 Urine Cocaine Screen Negative ng/mL (Negative) 05/17/24 23:37 U Marijuana (THC) Screen Positive ng/mL (Negative) H 05/17/24 23:37 Serum Ketones Positive (Negative) H 05/17/24 20:08 Adenovirus (PCR) Not detected (NOT DETECT) 05/17/24 22:30 C. pneumoniae DNA (PCR) Not detected (NOT DETECT) 05/17/24 22:30 Coronavirus 229E (PCR) Not detected (NOT DETECT) 05/17/24 22:30 Human Metapneumovir PCR Not detected (NOT DETECT) 05/17/24 22:30 Influenza A (H1) PCR Not detected (NOT DETECT) 05/17/24 22:30 Influ A (H1/09) PCR Not detected (NOT DETECT) 05/17/24 22: Influenza A (H3) PCR Not detected (NOT DETECT) 05/17/24 22:30 Influenza Type A (PCR) Not detected (NOT DETECT) 05/17/24 22:30 Influenza Type B (PCR) Not detected (NOT DETECT) 05/17/24 22:30 M. pneumoniae (PCR) Not detected (NOT DETECT) 05/17/24 22:30 Parainfluenza 1 (PCR) Not detected (NOT DETECT) 05/17/24 22:30 Parainfluenza 2 (PCR) Not detected (NOT DETECT) 05/17/24 22:30 Parainfluenza 3 (PCR) Not detected (NOT DETECT) 05/17/24 22:30 Parainfluenza 4 (PCR) Not detected (NOT DETECT) 05/17/24 22:30 RSV Type A (PCR) Not detected (NOT DETECT) 05/17/24 22:30 RSV Type B (PCR) Not detected (NOT DETECT) 05/17/24 22:30 Entero/Rhino (PCR) Detected (NOT DETECT) A 05/17/24 22:30 SARS-CoV-2 (PCR) Not detected (NOT DETECT) 05/17/24 22:30 Group A Strep Rapid Negative (Negative) 05/18/24 04:25 Vitals Last Vital Signs Temp 98.7 F 05/18/24 16:00 Pulse 58 L 01/27/25 16:00 Resp 19 H 05/18/24 16:00 BP 112/61 05/18/24 16:00 Pulse Ox 98 05/18/24 16:00 O2 Del Method Room Air 05/18/24 16:00 Discharge Plan Discharge Patient Disposition: Home Condition: Stable Prescriptions: New ondansetron 4 mg tablet,disintegrating 4 mg PO DAILY PRN (Reason: nausea and vomiting) 4 Days Qty: 10 0RF Continued albuterol sulfate 90 mcg/actuation HFA aerosol inhaler 2 puff INHALATION Q6H PRN (Reason: Shortness Of Breath Or Wheezing) ibuprofen [Advil] 200 mg Tablet 800 mg PO Q6H PRN (Reason: Pain) fluticasone propionate 50 mcg/actuation [place],Suspension 1 spray INTRANASAL DAILY PRN (Reason: ALLERGIES) Rx Instructions: administer into each nostril acetaminophen 500 mg Tablet 1,000 mg PO Q6H PRN (Reason: Pain) melatonin 5 mg Tablet 5 mg PO BEDTIME PRN (Reason: Sleep) Held Humalog KwikPen Insulin 200 unit/mL (3 mL) insulin pen See Rx Instructions .ROUTE .COMPLEX Qty: 15 3RF Hold Instructions: continue insulin pump Rx Instructions: sliding scale tid insulin glargine-yfgn [Semglee(insulin glarg-yfgn)Pen] 100 unit/mL (3 mL) insulin pen 20 unit SUBCUT BID Qty: 15 0RF Hold Instructions: please go back on insulin pump Discharge Orders: Discharge Order (Routine); Ordered 05/18/24 Ordered By: Samaria Martin Referrals: Shay,PREM GarcíaN [Primary Care Provider] - 4-7 days Discharge Diet: Diabetic Discharge Activity: Resume usual activity Patient Instructions: Ondansetron (By mouth) (Zofran, Zofran ODT, Zuplenz), Acute Kidney Injury (DC), Diabetic Ketoacidosis (GEN), Meal Planning with Diabetes Exchanges (GEN), Cannabis Use Disorder (ED), Opioid Safety Discharge Attestations Time Spent in Discharge Care*: greater than 30 min Status at Discharge: Cognitive status at discharge: cognitively intact , Behavioral status at discharge: cooperative , Quality Metrics Clinical Quality Measures [ No reported AMI, CVA or VTE this stay] Coding Level of Care Code Acute Code for Chg Fwd Diagnoses DKA (diabetic ketoacidosis) E10.10 Diabetes mellitus complication detail: without coma Diabetes mellitus type: type 1 High anion gap metabolic acidosis E87.29 Tetrahydrocannabinol (THC) dependence F12.20
--- NOTE | 2024-05-18 18:13 | PC.NURSE ---
Dr. Martin called and stated that she is putting in discharge orders for this patient but she wants him to have another blood sugar checked at around 1915 or 1930 and call her with the results prior to discharging him.
[2024-05-18 19:18] LABS: Glucose Point of Care 263 mg/dL (70-110)
--- NOTE | 2024-05-18 19:27 | PC.NURSE ---
Evening blood sugar obtained, reported to Dr. Martin, and confirmed pt to discharge. Spoke with patient and he stated he would apply insulin pump as soon as he gets home. Reiterated that he could very easily go back into DKA and it was vital he resume is insulin as soon as he gets home. Patient verbalized understanding. Patient also confirmed he ONLY takes the insulin provided in his pump, he takes no additional long acting or sliding scale.
--- NOTE | 2024-05-18 19:58 | PC.NURSE ---
Patient given discharge instructions, verbalized understanding, had no questions. Stated he would set up follow up appointment with primary in the morning.
== END 2024-05-18 19:55 | disposition home or self-care (01) | DRG 639 ==
LOC: ER 22:08 → ICU 23:50
PROVIDERS: Admitting Provider Internal Medicine; Emergency Provider Emergency Medicine; PCP Nurse Practitioner Family; Visit Provider Internal Medicine
DX: E10.10 Type 1 diabetes mellitus with ketoacidosis without coma (principal); F12.20 Cannabis dependence, uncomplicated; T38.3X6A Underdosing of insulin and oral hypoglycemic [antidiabetic] drugs, initial encounter; Z91.128 Patient's intentional underdosing of medication regimen for other reason; Z79.4 Long term (current) use of insulin; Z96.41 Presence of insulin pump (external) (internal)
CPT/HCPCS: 36415; 36416; 36600; 71045; 80048; 80053; 80306; 81001; 82009; 82803; 82962; 83690; 83735; 84100; 85025; 87040; 87081; 87486; 87581; 87633; 87880; 93005; 96365; 96366; 96367; 96372; 96374; 96375; 96376; 99285; J1815; J2405; J2470; J7030; J7799

== ENCOUNTER 2024-08-13 10:52 | Emergency (ER) | payer OTHER, SELFPAY ==
[2024-08-13 10:57] VITALS: BP 157/88; PULSE 96; RESP 16; TEMP 36.7; O2SAT 99; BMI 22.9
--- NOTE | 2024-08-13 11:00 | XR_ITS ---
WS: [id number] Exam: XR chest 1V portable [id number] Date/Time of Exam: 08/13/2024 11:00 AM Reason For Exam: Weakness Comparison 05/17/2024. Lungs are clear and fully expanded. Normal cardiomediastinal silhouette and regional bony elements. No pleural effusion. XR/XR chest 1V portable [id number] IMPRESSION: 1. Normal chest.
--- NOTE | 2024-08-13 11:03 | ED_ITS ---
HPI - Seizure 2 General: Chief Complaint: Seizure Stated Complaint: seizure Time Seen by Provider: 08/13/24 10:56 History of Present Illness: HPI Narrative: 19-year-[facility] seizure thought to be secondary to hypoglycemia. He says he does not remember anything. He is still a bit foggy he says. He says he has not been sick recently. Does not know if he missed any meals or if anything is been different than usual. Seizure History: Yes (hypoglycemic episode) Related Data Home Medications ?Medication ?Instructions ?Recorded ?Confirmed albuterol sulfate 90 mcg/actuation 2 puff inhalation Q 6H PRN 12/12/22 08/13/24 aerosol inhaler Shortness Of Breath Or Wheez ing acetaminophen 500 mg tablet 1,000 mg PO Q6H PRN Pain 0 05/12/23 08/13/24 melatonin 5 mg tablet 5 mg PO BEDTIME PRN Sleep 08/13/24 fluticasone propionate 50 1 spray intranasal DAILY PRN 05/18/24 08/13/24 mcg/actuation nasal ALLERGIES spray,suspension ibuprofen 200 mg tablet (Advil) 800 mg PO Q6H PRN Pain 05/18/24 08/13/24 Previous Rx's ?Medication ?Instructions ?Recorded insulin lispro 200 unit/mL (3 mL) See Rx Instructions .Route 06/09/23 subcutaneous pen (Humalog KwikPen .COMPLEX #15 mL U-200 Insulin) Held on 05/18/24. Instructions: continue insulin pump insulin glargine-yfgn 100 unit/mL 20 unit (0.2 mL) SUB CUT BID #15 mL 07/14/23 (3 mL) subcutaneous pen (Semglee (insulin glargine-yfgn) Pen) Held on 05/18/24. Instructions: please go back on insulin pump Allergies Allergy/AdvReac Type Severity Reaction Status Date / Time codeine Allergy Intermediate ADR-Nausea Verified 05/17/24 17:11 Review of Systems 2 Narrative: Constitutional symptoms: Negative except as documented in HPI. Skin symptoms: Negative except as documented in HPI. Eye symptoms: Negative except as documented in HPI. ENMT symptoms: Negative except as documented in HPI. Respiratory symptoms: Negative except as documented in HPI. Cardiovascular symptoms: Negative except as documented in HPI. Gastrointestinal symptoms: Negative except as documented in HPI. Genitourinary symptoms: Negative except as documented in HPI. Musculoskeletal symptoms: Negative except as documented in HPI. Neurologic symptoms: Negative except as documented in HPI. Psychiatric symptoms: Negative except as documented in HPI. Endocrine symptoms: Negative except as documented in HPI. PFSH ED 2 PFSH: Medical History (Updated 08/13/24 @ 13:13 by Julia Recinos MD) Tetrahydrocannabinol (THC) dependence MONICA (acute kidney injury) Cannabis hyperemesis syndrome concurrent with and due to cannabis abuse Boxers fracture in 11/2023 Hypoglycemia associated with diabetes Transaminitis Leukocytosis Strep throat Intractable nausea and vomiting Diabetic ketoacidosis Type 1 diabetes Surgical History No significant past surgical history Family History Other Depression Social History Smoking and tobacco/nicotine status: never used tobacco/nicotine Alcohol intake: never Lives independently: Yes Household members: other Details: ance Current occupational status: employed Physical Exam 2 Narrative: EXAM NARRATIVE: General: Alert, no acute distress. Skin: Warm, dry. Head: Normocephalic, atraumatic. Neck: Supple, trachea midline. Eye: Extraocular movements are intact. Ears, nose, mouth and throat: mucosa moist. Cardiovascular: Regular, Normal peripheral perfusion. Respiratory: Lungs are clear to auscultation, respirations are non-labored, breath sounds are equal, Symmetrical chest wall expansion. Gastrointestinal: Soft, Nontender, Non distended Musculoskeletal: Normal ROM, no deformity. Neurological: Alert and oriented, No focal neurological deficit observed. Psychiatric: Cooperative, appropriate mood & affect. Course 2 Vital Signs: Vital signs: Vital Signs Temperature 98.1 F 08/13/24 10:57 Pulse Rate 109 H 08/13/24 13:20 Respiratory Rate 25 H 08/13/24 12:15 Blood Pressure 137/85 08/13/24 13:20 Pulse Oximetry 99 08/13/24 13:20 Oxygen Delivery Me thod Room Air 08/13/24 12:15 MDM - Seizure MDM Narrative Medical decision making narrative: Medical decision making: Differential diagnosis including but not limited to and based on the above HPI, review of systems and physical exam: In this patient with hypoglycemia would have concern for infection causing low blood sugars or renal failure which can also result in low blood sugars in a diabetic. Orders placed to evaluate differential diagnosis based on the above differential, HPI and physical exam Chest x-ray: No acute process. No infiltrate. No pneumothorax. This was reviewed and interpreted by myself the emergency room physician. I also reviewed the radiology report. Lab Review: Laboratory results were reviewed and interpreted by myself the emergency room physician. No leukocytosis. No anemia. No renal failure. Glucose is 105. Has remained above 100. He is tolerated p.o. I reviewed the patient's medical record. Reexamination: Patient's glucose has remained greater than 100. He is tolerated p.o. No altered mental status. No focal motor deficits. I wrote him prescription for a new glucometer.. We had a lengthy talk about taking care when he is working outside and exerting himself with letting his sugars to be a little bit higher if need be and making sure he eats plenty to make up for the exertion. Assessment and plan: Hypoglycemia Seizure - Discharged home - Discussed plan with patient. Answered any questions. - Evaluation and treatment of this problem were appropriate in the emergency setting. Lab Data 08/13/24 11:11 08/13/24 11:11 Labs: Radiology Impressions Chest X-Ray 08/13/24 11:00 IMPRESSION: 1. Normal chest. Laboratory Results WBC 11.21 10^3/uL (3.29-11.43) 08/13/24 11:11 RBC 5.45 10^6/uL (3.85-5.65) 08/13/24 11:11 Hgb 15.90 g/dL (11.27-16.99) 08/13/24 11:11 Hct 47.5 % (37-53) 08/13/24 11:11 MCV 87.2 fl (82-101) 08/13/24 11:11 MCH 29.2 pg (27-33) 08/13/24 11:11 MCHC 33.5 g/dL (30-55) 08/13/24 11:11 RDW 12.8 % (12.1-15.1) 08/13/24 11:11 Plt Count 271 10^3/cmm (157-399) 08/13/24 11:11 MPV 10.2 fL (7.4-10.4) 08/13/24 11:11 Neut % (Auto) 87.5 % 08/13/24 11:11 Lymph % (Auto) 6.0 % 08/13/24 11:11 Angelina % (Auto) 5.1 % 08/13/24 11:11 Eos % (Auto) 0.3 % 08/13/24 11:11 Baso % (Auto) 0.4 % 08/13/24 11:11 Neut # (Auto) 9.81 10^3/uL (1.8-7.7) H 08/13/24 11:11 Lymph # (Auto) 0.7 10^3/uL (0.8-4.8) L 08/13/24 11:11 Angelina # (Auto) 0.6 10^3/uL (0.2-0.9) 08/13/24 11:11 Eos # (Auto) 0.0 10^3/uL (0.0-0.8) 08/13/24 11:11 Baso # (Auto) 0.1 10^3/uL (0.0-0.1) 08/13/24 11:11 Nucleated RBC % (auto) 0 % 08/13/24 11:11 Nucleated RBCs # 0.0 /100WBC 08/13/24 11:11 Sodium 138 mmol/L (136-145) 08/13/24 11:11 Potassium 4.8 mmol/L (3.5-5.1) 08/13/24 11:11 Chloride 100 mmol/L (98-107) 08/13/24 11:11 Carbon Dioxide 20 mmol/L (22-29) L 08/13/24 11:11 Anion Gap 22.8 (5-19) H 08/13/24 11:11 BUN 16 mg/dL (6-20) 08/13/24 11:11 Creatinine 1.0 mg/dL (0.7-1.2) 08/13/24 11:11 GFR Calculation 94.3 mL/min (90-130) 08/13/24 11:11 Glucose 105 mg/dL (65-115) 08/13/24 11:11 POC Glucose 112 mg/dL (70-110) H 08/13/24 11:56 Calculated Osmolality 288 mOsm/kg (285-295) 08/13/24 11:11 Lactic Acid 6.3 mmol/L (0.5-2.2) H* 08/13/24 11:11 Calcium 9.8 mg/dL (8.5-10.5) 08/13/24 11:11 Total Bilirubin 0.5 mg/dL (0.15-1.2) 08/13/24 11:11 AST 33 U/L (0-40) 08/13/24 11:11 ALT 18 U/L (0-41) 08/13/24 11:11 Alkaline Phosphatase 84 U/L (40-130) 08/13/24 11:11 C-Reactive Protein 3.0 mg/L (0.0-4.9) 08/13/24 11:11 Total Protein 8.1 g/dL (6.6-8.7) 08/13/24 11:11 Albumin 5.0 g/dL (3.5-5.2) 08/13/24 11:11 Globulin 3.1 g/dL (1.3-4.6) 08/13/24 11:11 Urine Color Yellow (Yellow) 08/13/24 11:58 Urine Appearance Cloudy (CLEAR) A 08/13/24 11:58 Urine pH 5.5 (5-7) 08/13/24 11:58 Ur Specific [place] 1.024 (1.005-1.030) 08/13/24 11:58 Urine Protein 2+ (Negative) A 08/13/24 11:58 Urine Glucose (UA) Negative (Normal) 08/13/24 11:58 Urine Ketones Trace (Negative) 08/13/24 11:58 Urine Blood 2+ (Negative) A 08/13/24 11:58 Urine Nitrate Negative (Negative) 08/13/24 11:58 Urine Bilirubin Negative (Negative) 08/13/24 11:58 Urine Urobilinogen 1.0 mg/dL (Negative) 08/13/24 11:58 Ur Leukocyte Esterase Negative (Negative) 08/13/24 11:58 Urine RBC 0-2 /hpf (0-2) 08/13/24 11:58 Urine WBC 0-5 /hpf (0-5) 08/13/24 11:58 Ur Squamous Epith Cells 0-5 /hpf (0-5) 08/13/24 11:58 Amorphous Sediment Not Reportable 08/13/24 11:58 Urine Bacteria None seen /hpf (NONE) 08/13/24 11:58 Hyaline Casts 7.85 /lpf 08/13/24 11:58 Influenza A (PCR) Negative (Negative) 08/13/24 11:11 Influenza Type B (PCR) Negative (Negative) 08/13/24 11:11 RSV (PCR) Negative (Negative) 08/13/24 11:11 SARS-CoV-2 (PCR) Negative (Negative) 08/13/24 11:11 All radiology interpretation(s) finalized by discharge Discharge Plan Discharge Patient Disposition: Home Clinical Impression: Hypoglycemia, Seizure Condition: Stable Prescriptions: No Action albuterol sulfate 90 mcg/actuation HFA aerosol inhaler 2 puff INHALATION Q6H PRN (Reason: Shortness Of Breath Or Wheezing) ibuprofen [Advil] 200 mg Tablet 800 mg PO Q6H PRN (Reason: Pain) fluticasone propionate 50 mcg/actuation [place],Suspension 1 spray INTRANASAL DAILY PRN (Reason: ALLERGIES) Rx Instructions: administer into each nostril acetaminophen 500 mg Tablet 1,000 mg PO Q6H PRN (Reason: Pain) melatonin 5 mg Tablet 5 mg PO BEDTIME PRN (Reason: Sleep) Humalog KwikPen Insulin 200 unit/mL (3 mL) insulin pen See Rx Instructions .ROUTE .COMPLEX Qty: 15 3RF Rx Instructions: sliding scale tid insulin glargine-yfgn [Semglee(insulin glarg-yfgn)Pen] 100 unit/mL (3 mL) insulin pen 20 unit SUBCUT BID Qty: 15 0RF Discharge Orders: Discharge ED (Routine); Ordered 08/13/24 Ordered By: Julia Recinos Referrals: Raquel Shay APN [Primary Care Provider] - Discharge Diet: Usual diet Discharge Activity: Increase activity as tolerated Patient Instructions: Hypoglycemia in a Person with Diabetes (ED), Diabetes and Exercise (ED), Opioid Safety, Pain Management Activity Restrictions/Additional Instructions: Thank you for choosing [facility] for your healthcare needs today. You have been screened and evaluated and felt safe for discharge. Health conditions do change or evolve sometimes and as such it is important that you follow up with your Primary Doctor to be re checked, 3-5 days is a general good time frame for follow up. You are always welcome to return to the ED for re assessment if your symptoms are worsening or you have new concerns Print Language: Lithuanian Coding Level of Care Code ED [employer] for Wilmar Leroy
[2024-08-13 11:15] LABS: Glucose Point of Care 95 mg/dL (70-110)
--- NOTE | 2024-08-13 11:21 | PC.PHAR ---
patient uses the insulin pump, has 2 other insulins prn if pump fails
[2024-08-13 11:44] LABS: Basophils # 0.1 10^3/uL (0.0-0.1); Basophils % 0.4 %; Eosinophils % 0.3 %; Hematocrit 47.5 % (37-53); Lymphocytes # 0.7 10^3/uL (0.8-4.8); Mean Corpuscular HGB Conc 33.5 g/dL (30-55); Mean Corpuscular Hemoglobin 29.2 pg (27-33); Mean Corpuscular Volume 87.2 fl (82-101); Mean Platelet Volume 10.2 fL (7.4-10.4); Monocytes # 0.6 10^3/uL (0.2-0.9); Monocytes % 5.1 %; Neutrophils # 9.81 10^3/uL (1.8-7.7); Neutrophils % 87.5 %; Nucleated Red Blood Cells % 0 %; Platelet Count 271 10^3/cmm (157-399); Red Blood Count 5.45 10^6/uL (3.85-5.65); Red Cell Distribution Width 12.8 % (12.1-15.1); White Blood Count 11.21 10^3/uL (3.29-11.43)
[2024-08-13 11:51] LABS: Alanine Aminotransferase 18 U/L (0-41); Alkaline Phosphatase 84 U/L (40-130); Blood Urea Nitrogen 16 mg/dL (6-20); Calcium 9.8 mg/dL (8.5-10.5); Carbon Dioxide 20 mmol/L (22-29); Chloride 100 mmol/L (98-107); Creatinine Clr Calc Pharmacy 120.3718; Globulin 3.1 g/dL (1.3-4.6); Glomerular Filtration Rate 94.3 mL/min (90-130); Glucose 105 mg/dL (65-115); Osmolality Calculated 288 mOsm/kg (285-295); Sodium 138 mmol/L (136-145); Total Bilirubin 0.5 mg/dL (0.15-1.2); Total Protein 8.1 g/dL (6.6-8.7)
[2024-08-13 12:00] LABS: Glucose Point of Care 112 mg/dL (70-110)
[2024-08-13 12:10] VITALS: BP 134/94; PULSE 97; RESP 16
[2024-08-13 12:15] VITALS: BP 128/106; PULSE 100; RESP 25; O2SAT 100
[2024-08-13 12:24] LABS: Anion Gap 22.8 (5-19); Aspartate Amino Transferase 33 U/L (0-40); Potassium 4.8 mmol/L (3.5-5.1)
[2024-08-13 12:36] LABS: Lactic Sepsis W/Reflex 6.3 mmol/L (0.5-2.2)
[2024-08-13 12:43] LABS: Bilirubin Urine Negative (Negative); Blood Urine 2+ (Negative); Glucose Urine UA Negative (Normal); Ketones Urine Trace (Negative); Leukocyte Esterase Urine Negative (Negative); Nitrate Urine Negative (Negative); Protein Urine 2+ (Negative); Specific Gravity, Urine 1.024 (1.005-1.030); Urine Appearance Cloudy (CLEAR); Urine Color Yellow (Yellow); pH Urine 5.5 (5-7)
[2024-08-13 12:45] LABS: Bacteria Urine None Seen /hpf; Hyaline Casts Urine 7.85 /lpf; RBC Urine 0-2 /hpf (0-2); Squamous Epithelial Cell Urine 0-5 /hpf (0-5); WBC Urine 0-5 /hpf (0-5)
[2024-08-13 12:47] LABS: Influenza A NEGATIVE (Negative); Influenza B NEGATIVE (Negative); Respiratory Syncytial Virus Ce NEGATIVE (Negative); SARS-CoV-2 PCR NEGATIVE (Negative)
[2024-08-13 12:55] LABS: UA Slide Review UA Slide Review Perf
[2024-08-13 13:10] LABS: Reflex Lactate Order REFLEX LACTIC ORDERD
[2024-08-13 13:20] VITALS: BP 137/85; PULSE 109; O2SAT 99
[2024-08-13 13:59] LABS: Lactic Acid level (Lactate) 1.5 mmol/L (0.5-2.2)
== END 2024-08-13 13:21 | disposition home or self-care (01) ==
PROVIDERS: Emergency Provider Emergency Medicine; PCP Nurse Practitioner Family
DX: E10.649 Type 1 diabetes mellitus with hypoglycemia without coma (principal); R56.9 Unspecified convulsions; Z11.52 Encounter for screening for COVID-19
CPT/HCPCS: 36415; 36416; 71045; 80053; 81001; 82962; 83605; 85025; 86140; 87040; 87637; 99284

== ENCOUNTER 2025-03-05 12:51 | Emergency (ER) | payer OTHER, SELFPAY ==
[2025-03-05 12:52] VITALS: BP 115/70; PULSE 91; RESP 12; TEMP 36.9; O2SAT 100; BMI 31.1
--- NOTE | 2025-03-05 13:07 | XR_ITS ---
WS: [id number] Exam: XR chest 1V portable [id number] Date/Time of Exam: 03/05/2025 1:07 PM Reason For Exam: sz Comparison 08/13/2024. Lungs are fully expanded and clear. Normal cardiomediastinal silhouette. Unremarkable bony structures. XR/XR chest 1V portable [id number] IMPRESSION: 1. Normal chest.
--- NOTE | 2025-03-05 13:10 | ECG_ITS ---
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 [email or web address]
[2025-03-05 13:30] VITALS: BP 127/67; PULSE 63; RESP 13; O2SAT 98
[2025-03-05 13:37] LABS: Hematocrit 41.1 % (37-53); Hemoglobin 13.90 g/dL (11.27-16.99); Mean Corpuscular HGB Conc 33.8 g/dL (30-55); Mean Corpuscular Hemoglobin 29.3 pg (27-33); Mean Corpuscular Volume 86.5 fl (82-101); Nucleated Red Blood Cells % 0 %; Platelet Count 231 10^3/cmm (157-399); Red Blood Count 4.75 10^6/uL (3.85-5.65); White Blood Count 8.40 10^3/uL (3.29-11.43)
--- NOTE | 2025-03-05 13:38 | W.ED.GENADLT ---
Documented by User: CODY Dupree 03/05/25 15:02 HPI - General Adult General: Chief complaint: General Medical Stated complaint: low bs, seizures Time Seen by Provider: 03/05/25 12:57 Source: patient, EMS and old records reviewed Mode of arrival: EMS Limitations: no limitations History of Present Illness: Patient is a 19-year-old male with past medical history of type 1 diabetes and hypoglycemic seizures reported to the Emergency Department by ambulance reportedly due to seizures today, associated with low blood sugar. He arrives by EMS, he notes to me that his Dexcom has not been working properly. He was seen here previously in July for similar issue where he had hypoglycemic seizures at that time had a Dexcom that was inaccurately telling what his blood sugar was. Family had reportedly found the patient seizing this morning on the floor, at 1152, and on the EMS arrival the patient was postictal and noted that his blood sugar was 65. He was given 1 g of D10 prehospital, states that prior to this seizure he has been feeling okay. At this time just feels tired and weak all over, no headache, visual changes, focal neurological deficit, chest pain, shortness of breath, abdominal pain, nausea or vomiting. His vitals are stable at this time. He sees Dr. Kelly for his diabetes. He is a chronic marijuana user. MD complaint: Hypoglycemia, seizures Severity: similar to prior episodes Pain Consistency: now resolved Associated symptoms: Deny chest pain, dyspnea, headache(s), nausea, rash, palpitations or vomiting Related Data Home Medications ?Medication ?Instructions ?Recorded ?Confirmed albuterol sulfate 90 mcg/actuation 2 puff inhalation Q6H PRN 12/12/22 01/19/25 aerosol inhaler Shortness Of Breath Or Wheezing acetaminophen 500 mg tablet 1,000 mg PO Q6H PRN Pain 05/12/23 01/19/25 melatonin 5 mg tablet 5 mg PO BEDTIME PRN Sleep 05/12/23 01/19/25 fluticasone propionate 50 1 spray intranasal DAILY PRN 05/18/24 01/19/25 mcg/actuation nasal ALLERGIES spray,suspension ibuprofen 200 mg tablet (Advil) 800 mg PO Q6H PRN Pain 05/18/24 01/19/25 Previous Rx's ?Medication ?Instructions ?Recorded insulin lispro 200 unit/mL (3 mL) See Rx Instructions .Route 06/09/23 subcutaneous pen (Humalog KwikPen .COMPLEX #15 mL U-200 Insulin) Held on 05/18/24. Instructions: continue insulin pump insulin glargine-yfgn 100 unit/mL 20 unit (0.2 mL) SUBCUT BID #15 mL 07/14/23 (3 mL) subcutaneous pen (Semglee (insulin glargine-yfgn) Pen) Held on 05/18/24. Instructions: please go back on insulin pump insulin pump cart,auto,BT,G6/7 #10 ea 01/19/25 (Omnipod 5 G6-G7 Pods (Gen 5) subcutaneous cartridge) Allergies Allergy/AdvReac Type Severity Reaction Status Date / Time codeine Allergy Intermediate ADR-Nausea Verified 05/17/24 17:11 Review of Systems General: Reports: 10 or more systems reviewed and unremarkable except in HPI and below Const: Reports: fatigue; Denies: fever(s) or chills Eyes: Denies: change in vision ENMT: Denies: throat pain, ear or mastoid pain or nasal discharge Card: Denies: chest pain, palpitations, swelling of feet/ankles or lightheadedness Resp: Denies: dyspnea, productive cough or wheezing GI: Denies: abdominal pain, nausea, vomiting, diarrhea or constipation : Denies: flank pain, difficulty urinating, dysuria or urinary frequency Musc: Denies: neck pain, back pain or joint pain Skin/Breast: Denies: rash Neuro: Reports: weakness in extremities and seizure-like activity; Denies: headache(s), numbness in extremities or dizziness PFSH ED PFSH: Medical History Type 1 diabetes Tetrahydrocannabinol (THC) dependence MONICA (acute kidney injury) Cannabis hyperemesis syndrome concurrent with and due to cannabis abuse Boxers fracture in 11/2023 Hypoglycemia associated with diabetes Transaminitis Leukocytosis Strep throat Intractable nausea and vomiting Diabetic ketoacidosis Surgical History No significant past surgical history Family History Other Depression Social History Smoking and tobacco/nicotine status: never used tobacco/nicotine Alcohol intake: never Lives independently: Yes Household members: other Details: Marnie Current occupational status: employed Physical Exam Const: COMMON NORMALS: no acute distress, patient oriented x3 and no limitations GENERAL APPEARANCE: cooperative and well developed ORIENTATION/CONSCIOUSNESS: Yes awake, Yes oriented to person, Yes oriented to place and Yes oriented to time OTHER: Diaphoretic, tired appearing but nontoxic HENMT: COMMON NORMALS: normocephalic, atraumatic and hearing grossly normal bilaterally HEAD & SCALP: normocephalic and atraumatic Eye: COMMON NORMALS: Equal, round and reactive pupils present, EOMs intact bilaterally and conjunctivae normal CONJUNCTIVA: Yes conjunctivae normal PUPIL: Yes Equal, round and reactive pupils present Neck/C-Spine: COMMON NORMALS: full ROM, supple and no JVD Resp: COMMON NORMALS: normal respiratory effort, No retractions, No use of accessory muscles and clear to auscultation bilaterally AUSCULTATION: clear to auscultation bilaterally Cardio: COMMON NORMALS: no JVD, regular rate, regular rhythm, No clicks present (Cardio), No murmurs present (Cardio) and No rub (Cardio) RATE: regular rate RHYTHM: regular rhythm GI: COMMON NORMALS: Normal to inspection, nondistended, normoactive bowel sounds present, Soft to palpation and non-tender AUSCULTATION: Yes normoactive bowel sounds PALPATION: Yes Soft to palpation RECTAL EXAM: Yes deferred Extremity: COMMON NORMALS: normal to inspection, full ROM and capillary refill normal Neuro: COMMON NORMALS: patient oriented x3, CN's II-XII intact bilaterally, moves all extremities, no focal motor deficits and no sensory deficits noted SENSORIUM/ORIENTATION: Yes oriented to person, Yes oriented to place and Yes oriented to time SPEECH: speech normal GAIT: Yes Normal gait present MOTOR EXAM: 5/5 motor strength present throughout, Pronator motor function not present, no tremor noted, no asterixis, Motor fasciculations not present and Normal motor muscle tone present throughout Skin: COMMON NORMALS: no rashes or lesions noted GENERAL SKIN EXAM: no rashes or lesions noted Course Vital Signs: Vital signs: Vital Signs Temperature 98.4 F 03/05/25 12:52 Pulse Rate 81 03/05/25 15:25 Respiratory Rate 13 03/05/25 13:30 Blood Pressure 99/51 03/05/25 15:25 Pulse Oximetry 98 03/05/25 15:25 Oxygen Delivery Me thod Room Air 03/05/25 12:52 MDM - General Adult Medical Decision Making This patient present by ambulance for seizures associated with hypoglycemia as he has a history of type 1 diabetes. Has been seen here in the emergency department in the past for similar issues, where at that time his Dexcom has been causing him issues with accurate blood glucose readings. Reportedly today he had a seizure of unknown length, was found around noon seizing but by EMS arrival he had been postictal. During examination today there is no focal neurological deficit he was tired but no other complaints. Afebrile and no other clinical signs of toxicity or infection. No fevers, vital stable. The x-ray of his chest was normal. EKG showing no rhythm changes. All of his blood work reassuring, mild elevation in CK and lactic acid likely secondary to seizure activity however this is not significant at this time. He did receive D10 prehospital, and here in the Emergency Department has had multiple blood glucose readings greater than 100 and is back to baseline following workup. He is set to undergo a [employer] evaluation for accurate glucometer, this is in a couple of weeks and he is encouraged to keep this appointment as I believe his issues are related to inaccurate readings and inability to see that his blood sugar is dropping too low. He is also able to tolerate p.o. here in the emergency department, and clinically stable for discharge and he and family agree with this plan at this time. Lab Data 03/05/25 13:30 03/05/25 13:30 Radiology Impressions Chest X-Ray 03/05/25 13:07 IMPRESSION: 1. Normal chest. Laboratory Results WBC 8.40 10^3/uL (3.29-11.43) 03/05/25 13:30 RBC 4.75 10^6/uL (3.85-5.65) 03/05/25 13:30 Hgb 13.90 g/dL (11.27-16.99) 03/05/25 13:30 Hct 41.1 % (37-53) 03/05/25 13:30 MCV 86.5 fl (82-101) 03/05/25 13:30 MCH 29.3 pg (27-33) 03/05/25 13:30 MCHC 33.8 g/dL (30-55) 03/05/25 13:30 RDW 12.5 % (12.1-15.1) 03/05/25 13:30 Plt Count 231 10^3/cmm (157-399) 03/05/25 13:30 MPV 9.6 fL (7.4-10.4) 03/05/25 13:30 Neut % (Auto) 83.7 % 03/05/25 13:30 Lymph % (Auto) 6.8 % 03/05/25 13:30 Andrew % (Auto) 7.4 % 03/05/25 13:30 Eos % (Auto) 1.0 % 03/05/25 13:30 Baso % (Auto) 0.4 % 03/05/25 13:30 Neut # (Auto) 7.04 10^3/uL (1.8-7.7) 03/05/25 13:30 Lymph # (Auto) 0.6 10^3/uL (0.8-4.8) L 03/05/25 13:30 Andrew # (Auto) 0.6 10^3/uL (0.2-0.9) 03/05/25 13:30 Eos # (Auto) 0.1 10^3/uL (0.0-0.8) 03/05/25 13:30 Baso # (Auto) 0.0 10^3/uL (0.0-0.1) 03/05/25 13:30 Nucleated RBC % (auto) 0 % 03/05/25 13:30 Nucleated RBCs # 0.0 /100WBC 03/05/25 13:30 Sodium 141 mmol/L (136-145) 03/05/25 13:30 Potassium 4.0 mmol/L (3.5-5.1) 03/05/25 13:30 Chloride 105 mmol/L (98-107) 03/05/25 13:30 Carbon Dioxide 24 mmol/L (22-29) 03/05/25 13:30 Anion Gap 16.0 (5-19) 03/05/25 13:30 BUN 12 mg/dL (6-20) 03/05/25 13:30 Creatinine 1.0 mg/dL (0.7-1.2) 03/05/25 13:30 GFR Calculation 94.3 mL/min (90-130) 03/05/25 13:30 Glucose 75 mg/dL (65-115) 03/05/25 13:30 POC Glucose 102 mg/dL (70-110) 03/05/25 14:40 Calculated Osmolality 290 mOsm/kg (285-295) 03/05/25 13:30 Lactic Acid 2.9 mmol/L (0.5-2.2) H 03/05/25 13:30 Calcium 8.9 mg/dL (8.5-10.5) 03/05/25 13:30 Magnesium 2.1 mg/dL (1.7-2.3) 03/05/25 13:30 Total Bilirubin 0.6 mg/dL (0.15-1.2) 03/05/25 13:30 AST 21 U/L (0-40) 03/05/25 13:30 ALT 13 U/L (0-41) 03/05/25 13:30 Alkaline Phosphatase 70 U/L (40-130) 03/05/25 13:30 Creatine Kinase 453 U/L (39-308) H* 03/05/25 13:30 C-Reactive Protein 3.0 mg/L (0.0-4.9) 03/05/25 13:30 Total Protein 6.9 g/dL (6.6-8.7) 03/05/25 13:30 Albumin 4.4 g/dL (3.5-5.2) 03/05/25 13:30 Globulin 2.5 g/dL (1.3-4.6) 03/05/25 13:30 Urine Color Yellow (Yellow) 03/05/25 14:01 Urine Appearance Clear (CLEAR) 03/05/25 14: Urine pH 5.5 (5-7) 03/05/25 14: Ur Specific Babbitt 1.021 (1.005-1.030) 03/05/25 14: Urine Protein 2+ (Negative) A 03/05/25 14: Urine Glucose (UA) Negative (Normal) 03/05/25 14: Urine Ketones Trace (Negative) 03/05/25 14: Urine Blood 2+ (Negative) A 03/05/25 14:01 Urine Nitrate Negative (Negative) 03/05/25 14:01 Urine Bilirubin Negative (Negative) 03/05/25 14:01 Urine Urobilinogen 1.0 mg/dL (Negative) 03/05/25 14:01 Ur Leukocyte Esterase Negative (Negative) 03/05/25 14:01 Urine RBC 0-2 /hpf (0-2) 03/05/25 14:01 Urine WBC 0-5 /hpf (0-5) 03/05/25 14:01 Ur Squamous Epith Cells 0-5 /hpf (0-5) 03/05/25 14:01 Amorphous Sediment Not Reportable 03/05/25 14:01 Urine Bacteria None seen /hpf (NONE) 03/05/25 14:01 Hyaline Casts 2.87 /lpf 03/05/25 14:01 Urine Opiates Screen Negative ng/mL (Negative) 03/05/25 14:01 Ur Barbiturates Screen Negative ng/mL (Negative) 03/05/25 14:01 Ur Phencyclidine Scrn Negative ng/mL (Negative) 03/05/25 14:01 Ur Amphetamines Screen Negative ng/mL (Negative) 03/05/25 14:01 U Benzodiazepines Scrn Negative ng/mL (Negative) 03/05/25 14:01 Urine Cocaine Screen Negative ng/mL (Negative) 03/05/25 14:01 U Marijuana (THC) Screen Positive ng/mL (Negative) H 03/05/25 14:01 All radiology interpretation(s) finalized by discharge Discharge Plan Discharge Patient Disposition: Home Clinical Impression: Hypoglycemia associated with diabetes, Seizure due to hypoglycemia Condition: Stable Prescriptions: No Action (DME) Omnipod 5 G6-G7 Pods (Gen 5) Cartridge See Rx Instructions .Route Qty: 10 1RF Rx Instructions: change every 3 days albuterol sulfate 90 mcg/actuation HFA aerosol inhaler 2 puff INHALATION Q6H PRN (Reason: Shortness Of Breath Or Wheezing) ibuprofen [Advil] 200 mg Tablet 800 mg PO Q6H PRN (Reason: Pain) fluticasone propionate 50 mcg/actuation [place],Suspension 1 spray INTRANASAL DAILY PRN (Reason: ALLERGIES) Rx Instructions: administer into each nostril acetaminophen 500 mg Tablet 1,000 mg PO Q6H PRN (Reason: Pain) melatonin 5 mg Tablet 5 mg PO BEDTIME PRN (Reason: Sleep) Humalog KwikPen Insulin 200 unit/mL (3 mL) insulin pen See Rx Instructions .ROUTE .COMPLEX Qty: 15 3RF Rx Instructions: sliding scale tid insulin glargine-yfgn [Semglee(insulin glarg-yfgn)Pen] 100 unit/mL (3 mL) insulin pen 20 unit SUBCUT BID Qty: 15 0RF Discharge Orders: Discharge ED (Routine); Ordered 03/05/25 Ordered By: Shaji Valdes Other Ambulatory Orders: DME: Miscellaneous (Order) Location: None Selected Ordered By: Shaji Valdes Referrals: Shay,Raquel, VICE PRESIDENT OF ADVERTISING [Primary Care Provider, Nurse Practitioner] Patient Instructions: Patient Portal & Sabrina Instructions Activity Restrictions/Additional Instructions: Diabetes Discharge Instructions You are being discharged after treatment for a seizure related to high blood sugar (hyperglycemia) in the setting of type 1 diabetes. Your lab results today were normal, and your blood glucose was consistently above 100 mg/dL. Home Blood Glucose Monitoring - Check your blood sugar before meals, at bedtime, before and after exercise, and whenever you feel symptoms of low or high blood sugar. If you are ill or stressed, monitor more frequently. - Continue using your current glucose monitoring device until your scheduled appointment for Med[employer]onic glucometer placement. Bring your device and any recent glucose records to your endocrinology visit. Sick-Day and Hyperglycemia Management - If you feel unwell, have nausea, vomiting, abdominal pain, or notice very high blood sugars (over 200 mg/dL), check for ketones if you have the supplies. Contact your diabetes care team if ketones are present or if you cannot keep fluids down. - Do not stop your basal insulin, even if you are not eating. Adjust doses only as instructed by your care team. - Drink plenty of fluids and eat regular meals unless otherwise directed. Hypoglycemia Prevention - Always carry a source of fast-acting sugar (like glucose tablets or juice) in case of low blood sugar. - If you experience symptoms of low blood sugar (shakiness, sweating, confusion), check your glucose and treat promptly. Follow-Up - You are scheduled to see your supervisor felting for placement of a Medtronic blood glucometer to replace your Dexcom device. It is very important to attend this appointment to ensure safe transition and continued monitoring. - Bring all diabetes supplies, medication lists, and recent glucose records to your visit. Supplies and Prescriptions - Make sure you have enough test strips, insulin, and other diabetes supplies at home. Contact your pharmacy or care team if you need refills before your appointment. When to Seek Immediate Help - Go to the emergency department if you have persistent vomiting, cannot keep fluids down, have confusion, difficulty breathing, or signs of severe dehydration. - Seek help if you have repeated low or high blood sugars that you cannot manage at home. Contact Information - For questions or concerns, contact your diabetes care team or supervisor felting. Summary - Monitor your blood glucose regularly. - Attend your scheduled endocrinology appointment for device transition. - Follow sick-day rules and seek help for concerning symptoms. - Ensure you have all necessary supplies and medications. These instructions are based on current diabetes care guidelines to help you safely manage your condition at home and prevent complications. Print Language: Dutch Coding Level of Care Code ED Balance Wheel Screw Hole Driller for Chg Fwd Documented by User: Sharath Suggs DO 03/06/25 14:32 HPI - General Adult General: Chief complaint: General Medical Stated complaint: low bs, seizures Time Seen by Provider: 03/05/25 12:57 Related Data Home Medications ?Medication ?Instructions ?Recorded ?Confirmed albuterol sulfate 90 mcg/actuation 2 puff inhalation Q6H PRN 12/12/22 01/19/25 aerosol inhaler Shortness Of Breath Or Wheezing acetaminophen 500 mg tablet 1,000 mg PO Q6H PRN Pain 05/12/23 01/19/25 melatonin 5 mg tablet 5 mg PO BEDTIME PRN Sleep 05/12/23 01/19/25 fluticasone propionate 50 1 spray intranasal DAILY PRN 05/18/24 01/19/25 mcg/actuation nasal ALLERGIES spray,suspension ibuprofen 200 mg tablet (Advil) 800 mg PO Q6H PRN Pain 05/18/24 01/19/25 Previous Rx's ?Medication ?Instructions ?Recorded insulin lispro 200 unit/mL (3 mL) See Rx Instructions .Route 06/09/23 subcutaneous pen (Humalog KwikPen .COMPLEX #15 mL U-200 Insulin) Held on 05/18/24. Instructions: continue insulin pump insulin glargine-yfgn 100 unit/mL 20 unit (0.2 mL) SUBCUT BID #15 mL 07/14/23 (3 mL) subcutaneous pen (Semglee (insulin glargine-yfgn) Pen) Held on 05/18/24. Instructions: please go back on insulin pump insulin pump cart,auto,BT,G6/7 #10 ea 01/19/25 (Omnipod 5 G6-G7 Pods (Gen 5) subcutaneous cartridge) Allergies Allergy/AdvReac Type Severity Reaction Status Date / Time codeine Allergy Intermediate ADR-Nausea Verified 05/17/24 17:11 [facility] ED PFSH: Medical History Type 1 diabetes Tetrahydrocannabinol (THC) dependence MONICA (acute kidney injury) Cannabis hyperemesis syndrome concurrent with and due to cannabis abuse Boxers fracture in 11/2023 Hypoglycemia associated with diabetes Transaminitis Leukocytosis Strep throat Intractable nausea and vomiting Diabetic ketoacidosis Surgical History No significant past surgical history Family History Other Depression Social History Smoking and tobacco/nicotine status: never used tobacco/nicotine Alcohol intake: never Lives independently: Yes Household members: other Details: Marnie Current occupational status: employed Course Vital Signs: Vital signs: Vital Signs Temperature 98.4 F 03/05/25 12:52 Pulse Rate 81 03/05/25 15:25 Respiratory Rate 13 03/05/25 13:30 Blood Pressure 99/51 03/05/25 15:25 Pulse Oximetry 98 03/05/25 15:25 Oxygen Delivery Me thod Room Air 03/05/25 12:52 MDM - General Adult Medical Decision Making This patient present by ambulance for seizures associated with hypoglycemia as he has a history of type 1 diabetes. Has been seen here in the emergency department in the past for similar issues, where at that time his Dexcom has been causing him issues with accurate blood glucose readings. Reportedly today he had a seizure of unknown length, was found around noon seizing but by EMS arrival he had been postictal. During examination today there is no focal neurological deficit he was tired but no other complaints. Afebrile and no other clinical signs of toxicity or infection. No fevers, vital stable. The x-ray of his chest was normal. EKG showing no rhythm changes. All of his blood work reassuring, mild elevation in CK and lactic acid likely secondary to seizure activity however this is not significant at this time. He did receive D10 prehospital, and here in the Emergency Department has had multiple blood glucose readings greater than 100 and is back to baseline following workup. He is set to undergo a [employer] evaluation for accurate glucometer, this is in a couple of weeks and he is encouraged to keep this appointment as I believe his issues are related to inaccurate readings and inability to see that his blood sugar is dropping too low. He is also able to tolerate p.o. here in the emergency department, and clinically stable for discharge and he and family agree with this plan at this time. Chart reviewed Lab Data 03/05/25 13:30 03/05/25 13:30 Radiology Impressions Chest X-Ray 03/05/25 13:07 IMPRESSION: 1. Normal chest. Laboratory Results WBC 8.40 10^3/uL (3.29-11.43) 03/05/25 13:30 RBC 4.75 10^6/uL (3.85-5.65) 03/05/25 13:30 Hgb 13.90 g/dL (11.27-16.99) 03/05/25 13:30 Hct 41.1 % (37-53) 03/05/25 13:30 MCV 86.5 fl (82-101) 03/05/25 13:30 MCH 29.3 pg (27-33) 03/05/25 13:30 MCHC 33.8 g/dL (30-55) 03/05/25 13:30 RDW 12.5 % (12.1-15.1) 03/05/25 13:30 Plt Count 231 10^3/cmm (157-399) 03/05/25 13:30 MPV 9.6 fL (7.4-10.4) 03/05/25 13:30 Neut % (Auto) 83.7 % 03/05/25 13:30 Lymph % (Auto) 6.8 % 03/05/25 13:30 Andrew % (Auto) 7.4 % 03/05/25 13:30 Eos % (Auto) 1.0 % 03/05/25 13:30 Baso % (Auto) 0.4 % 03/05/25 13:30 Neut # (Auto) 7.04 10^3/uL (1.8-7.7) 03/05/25 13:30 Lymph # (Auto) 0.6 10^3/uL (0.8-4.8) L 03/05/25 13:30 Andrew # (Auto) 0.6 10^3/uL (0.2-0.9) 03/05/25 13:30 Eos # (Auto) 0.1 10^3/uL (0.0-0.8) 03/05/25 13:30 Baso # (Auto) 0.0 10^3/uL (0.0-0.1) 03/05/25 13:30 Nucleated RBC % (auto) 0 % 03/05/25 13:30 Nucleated RBCs # 0.0 /100WBC 03/05/25 13:30 Sodium 141 mmol/L (136-145) 03/05/25 13:30 Potassium 4.0 mmol/L (3.5-5.1) 03/05/25 13:30 Chloride 105 mmol/L (98-107) 03/05/25 13:30 Carbon Dioxide 24 mmol/L (22-29) 03/05/25 13:30 Anion Gap 16.0 (5-19) 03/05/25 13:30 BUN 12 mg/dL (6-20) 03/05/25 13:30 Creatinine 1.0 mg/dL (0.7-1.2) 03/05/25 13:30 GFR Calculation 94.3 mL/min (90-130) 03/05/25 13:30 Glucose 75 mg/dL (65-115) 03/05/25 13:30 POC Glucose 102 mg/dL (70-110) 03/05/25 14:40 Calculated Osmolality 290 mOsm/kg (285-295) 03/05/25 13:30 Lactic Acid 2.9 mmol/L (0.5-2.2) H 03/05/25 13:30 Calcium 8.9 mg/dL (8.5-10.5) 03/05/25 13:30 Magnesium 2.1 mg/dL (1.7-2.3) 03/05/25 13:30 Total Bilirubin 0.6 mg/dL (0.15-1.2) 03/05/25 13:30 AST 21 U/L (0-40) 03/05/25 13:30 ALT 13 U/L (0-41) 03/05/25 13:30 Alkaline Phosphatase 70 U/L (40-130) 03/05/25 13:30 Creatine Kinase 453 U/L (39-308) H* 03/05/25 13:30 C-Reactive Protein 3.0 mg/L (0.0-4.9) 03/05/25 13:30 Total Protein 6.9 g/dL (6.6-8.7) 03/05/25 13:30 Albumin 4.4 g/dL (3.5-5.2) 03/05/25 13:30 Globulin 2.5 g/dL (1.3-4.6) 03/05/25 13:30 Urine Color Yellow (Yellow) 03/05/25 14: Urine Appearance Clear (CLEAR) 03/05/25 14: Urine pH 5.5 (5-7) 03/05/25 14: Ur Specific [place] 1.021 (1.005-1.030) 03/05/25 14: Urine Protein 2+ (Negative) A 03/05/25 14: Urine Glucose (UA) Negative (Normal) 03/05/25 14: Urine Ketones Trace (Negative) 03/05/25 14: Urine Blood 2+ (Negative) A 03/05/25 14: Urine Nitrate Negative (Negative) 03/05/25 14: Urine Bilirubin Negative (Negative) 03/05/25 14: Urine Urobilinogen 1.0 mg/dL (Negative) 03/05/25 14: Ur Leukocyte Esterase Negative (Negative) 03/05/25 14: Urine RBC 0-2 /hpf (0-2) 03/05/25 14: Urine WBC 0-5 /hpf (0-5) 03/05/25 14:01 Ur Squamous Epith Cells 0-5 /hpf (0-5) 03/05/25 14:01 Amorphous Sediment Not Reportable 03/05/25 14:01 Urine Bacteria None seen /hpf (NONE) 03/05/25 14:01 Hyaline Casts 2.87 /lpf 03/05/25 14:01 Urine Opiates Screen Negative ng/mL (Negative) 03/05/25 14:01 Ur Barbiturates Screen Negative ng/mL (Negative) 03/05/25 14:01 Ur Phencyclidine Scrn Negative ng/mL (Negative) 03/05/25 14:01 Ur Amphetamines Screen Negative ng/mL (Negative) 03/05/25 14:01 U Benzodiazepines Scrn Negative ng/mL (Negative) 03/05/25 14:01 Urine Cocaine Screen Negative ng/mL (Negative) 03/05/25 14:01 U Marijuana (THC) Screen Positive ng/mL (Negative) H 03/05/25 14:01 Discharge Plan Discharge Patient Disposition: Home Clinical Impression: Hypoglycemia associated with diabetes, Seizure due to hypoglycemia Condition: Stable Prescriptions: No Action (DME) Omnipod 5 G6-G7 Pods (Gen 5) Cartridge See Rx Instructions .Route Qty: 10 1RF Rx Instructions: change every 3 days albuterol sulfate 90 mcg/actuation HFA aerosol inhaler 2 puff INHALATION Q6H PRN (Reason: Shortness Of Breath Or Wheezing) ibuprofen [Advil] 200 mg Tablet 800 mg PO Q6H PRN (Reason: Pain) fluticasone propionate 50 mcg/actuation [place],Suspension 1 spray INTRANASAL DAILY PRN (Reason: ALLERGIES) Rx Instructions: administer into each nostril acetaminophen 500 mg Tablet 1,000 mg PO Q6H PRN (Reason: Pain) melatonin 5 mg Tablet 5 mg PO BEDTIME PRN (Reason: Sleep) Humalog KwikPen Insulin 200 unit/mL (3 mL) insulin pen See Rx Instructions .ROUTE .COMPLEX Qty: 15 3RF Rx Instructions: sliding scale tid insulin glargine-yfgn [Semglee(insulin glarg-yfgn)Pen] 100 unit/mL (3 mL) insulin pen 20 unit SUBCUT BID Qty: 15 0RF Discharge Orders: Discharge ED (Routine); Ordered 03/05/25 Ordered By: Shaji Valdes Other Ambulatory Orders: DME: Miscellaneous (Order) Location: None Selected Ordered By: Shaji Valdes Referrals: Raquel Shay APN [Primary Care Provider, Nurse Practitioner] Patient Instructions: Patient Portal & Sabrina Instructions Activity Restrictions/Additional Instructions: Diabetes Discharge Instructions You are being discharged after treatment for a seizure related to high blood sugar (hyperglycemia) in the setting of type 1 diabetes. Your lab results today were normal, and your blood glucose was consistently above 100 mg/dL. Home Blood Glucose Monitoring - Check your blood sugar before meals, at bedtime, before and after exercise, and whenever you feel symptoms of low or high blood sugar. If you are ill or stressed, monitor more frequently. - Continue using your current glucose monitoring device until your scheduled appointment for Medtronic glucometer placement. Bring your device and any recent glucose records to your endocrinology visit. Sick-Day and Hyperglycemia Management - If you feel unwell, have nausea, vomiting, abdominal pain, or notice very high blood sugars (over 200 mg/dL), check for ketones if you have the supplies. Contact your diabetes care team if ketones are present or if you cannot keep fluids down. - Do not stop your basal insulin, even if you are not eating. Adjust doses only as instructed by your care team. - Drink plenty of fluids and eat regular meals unless otherwise directed. Hypoglycemia Prevention - Always carry a source of fast-acting sugar (like glucose tablets or juice) in case of low blood sugar. - If you experience symptoms of low blood sugar (shakiness, sweating, confusion), check your glucose and treat promptly. Follow-Up - You are scheduled to see your supervisor felting for placement of a Medtronic blood glucometer to replace your Dexcom device. It is very important to attend this appointment to ensure safe transition and continued monitoring. - Bring all diabetes supplies, medication lists, and recent glucose records to your visit. Supplies and Prescriptions - Make sure you have enough test strips, insulin, and other diabetes supplies at home. Contact your pharmacy or care team if you need refills before your appointment. When to Seek Immediate Help - Go to the emergency department if you have persistent vomiting, cannot keep fluids down, have confusion, difficulty breathing, or signs of severe dehydration. - Seek help if you have repeated low or high blood sugars that you cannot manage at home. Contact Information - For questions or concerns, contact your diabetes care team or supervisor felting. Summary - Monitor your blood glucose regularly. - Attend your scheduled endocrinology appointment for device transition. - Follow sick-day rules and seek help for concerning symptoms. - Ensure you have all necessary supplies and medications. These instructions are based on current diabetes care guidelines to help you safely manage your condition at home and prevent complications. Print Language: Dutch Coding Level of Care Code ED Balance Wheel Screw Hole Driller for Wilmar Leroy
[2025-03-05 13:54] LABS: Alanine Aminotransferase 13 U/L (0-41); Albumin Level 4.4 g/dL (3.5-5.2); Alkaline Phosphatase 70 U/L (40-130); Anion Gap 16.0 (5-19); Aspartate Amino Transferase 21 U/L (0-40); Blood Urea Nitrogen 12 mg/dL (6-20); Calcium 8.9 mg/dL (8.5-10.5); Carbon Dioxide 24 mmol/L (22-29); Chloride 105 mmol/L (98-107); Globulin 2.5 g/dL (1.3-4.6); Glucose 75 mg/dL (65-115); Magnesium 2.1 mg/dL (1.7-2.3); Osmolality Calculated 290 mOsm/kg (285-295); Potassium 4.0 mmol/L (3.5-5.1); Sodium 141 mmol/L (136-145); Total Protein 6.9 g/dL (6.6-8.7)
[2025-03-05 13:55] LABS: Lactic Sepsis W/Reflex 2.9 mmol/L (0.5-2.2)
[2025-03-05 13:56] LABS: Reflex Lactate Order REFLEX LACTIC ORDERD
[2025-03-05 14:41] LABS: Glucose Urine UA Negative (Normal); Nitrate Urine Negative (Negative); Specific Gravity, Urine 1.021 (1.005-1.030)
[2025-03-05 14:46] LABS: Add Urine Microscopic? YES
[2025-03-05 14:48] LABS: PCP Screen Urine Negative (Negative)
[2025-03-05 15:25] VITALS: BP 99/51; PULSE 81; O2SAT 98
== END 2025-03-05 15:25 | disposition home or self-care (01) ==
PROVIDERS: Emergency Provider Physician Assistant; PCP Nurse Practitioner Family
DX: E10.649 Type 1 diabetes mellitus with hypoglycemia without coma (principal); G40.89 Other seizures
CPT/HCPCS: 36415; 36416; 71045; 80053; 80306; 81001; 82550; 82962; 83605; 83735; 85025; 86140; 93005; 99285